=== PATIENT | female | born 1955 | race Caucasian/White ===

== ENCOUNTER 2021-05-03 11:39 | Inpatient (IN) | payer OTHER ==
[2021-05-03] MEDS ORDERED: ONDANSETRON 4 MG/2 ML VIAL IVPUSH ONE (12:15)
[2021-05-03] MEDS ORDERED: ACETAMINOPHEN 500 MG TABLET (FP) PO ONE (12:15)
[2021-05-03] MEDS ORDERED: SODIUM CHLORIDE 0.9% 500 ML INFUS.BAG IV ONE (12:15)
[2021-05-03] MEDS ORDERED: ACETAMINOPHEN 500 MG TABLET (FP) ONE ×2 (13:08→13:10)
[2021-05-03] MEDS ORDERED: ONDANSETRON 4 MG/2 ML VIAL ONE (13:08)
[2021-05-03 13:24] LABS: BASO % 0.5 % (0-2.0); EOS % 0.4 % (0-4.5); HEMATOCRIT 27.9 % (32.4-45.2); HEMOGLOBIN 9.3 GM/dL (10.7-15.3); LYMPH % 5.5 % (8-40); MCH 26.8 pg (25.7-33.7); MCHC 33.2 g/dl (32.0-36.0); MEAN CELL VOLUME 80.6 fl (80-96); MEAN PLT VOLUME 6.4 fl (7.5-11.1); MONO % 6.6 % (3.8-10.2); PLATELET COUNT 685 10^3/uL (134-434); RBC 3.46 M/mm3 (3.60-5.2); RDW 14.5 % (11.6-15.6); WHITE BLOOD COUNT 17.3 K/mm3 (4.0-10.0)
[2021-05-03 13:27] LABS: EPI CELLS >36 /uL (0-25.1); HYALINE CASTS 30 /uL (0-3.1); URINE APPEARANCE CLOUDY; URINE BACTERIA 1355 /uL (0-1359); URINE BILIRUBIN 1+ (NEGATIVE); URINE COLOR DK YELLOW; URINE GLUCOSE (UA) NEGATIVE (NEGATIVE); URINE KETONE TRACE (NEGATIVE); URINE LEUK ESTERASE TRACE (NEGATIVE); URINE NITRITE NEGATIVE (NEGATIVE); URINE PROTEIN 2+ (NEGATIVE); URINE RBC 30 /uL (0-23.9); URINE WBC 62 /uL (0-25.8)
[2021-05-03 13:51] LABS: ALBUMIN 2.2 g/dl (3.4-5.0); ALK PHOS 174 U/L (45-117); ANION GAP 7 MMOL/L (8-16); BILIRUBIN,TOTAL 0.4 mg/dL (0.2-1); BLOOD UREA NITROGEN 13.6 mg/dL (7-18); CALCIUM 9.4 mg/dL (8.5-10.1); CHLORIDE 97 mmol/L (98-107); CO2 24 mmol/L (21-32); CREATININE 1.1 mg/dL (0.55-1.3); GLUCOSE,RANDOM 211 mg/dL (74-106); LIPASE 100 U/L (73-393); SGOT/AST 22 U/L (15-37); SGPT/ALT 29 U/L (13-61); SODIUM 128 mmol/L (136-145); TOT PROT 7.5 g/dl (6.4-8.2)
[2021-05-03 16:11] LABS: EPI CELLS 12 /uL (0-25.1); HYALINE CASTS 10 /uL (0-3.1); PH,URINE 5.5 (5.0-8.0); URINE APPEARANCE CLEAR; URINE BACTERIA 9 /uL (0-1359); URINE BILIRUBIN 1+ (NEGATIVE); URINE COLOR DK YELLOW; URINE GLUCOSE (UA) NEGATIVE (NEGATIVE); URINE KETONE TRACE (NEGATIVE); URINE LEUK ESTERASE NEGATIVE (NEGATIVE); URINE NITRITE NEGATIVE (NEGATIVE); URINE PROTEIN 1+ (NEGATIVE); URINE RBC 24 /uL (0-23.9); URINE WBC 15 /uL (0-25.8)
[2021-05-03] MEDS ORDERED: PIPERACILLIN/TAZOB 4.5 GM 4.5 GM in DEXTROSE 5%-WATER 100 ML IVPB ONE (17:57)
[2021-05-03] MEDS ORDERED: PIPERACILLIN/TAZOB 4.5 GM 4.5 GM/100 ML BAG IVPB ONE (18:03)
[2021-05-03 21:59] LABS: BASO % 0.6 % (0-2.0); EOS % 0.9 % (0-4.5); HEMOGLOBIN 9.1 GM/dL (10.7-15.3); MCH 26.6 pg (25.7-33.7); MCHC 32.5 g/dl (32.0-36.0); MEAN CELL VOLUME 81.6 fl (80-96); MEAN PLT VOLUME 6.5 fl (7.5-11.1); NEUT % 81.5 % (42.8-82.8); PLATELET COUNT 709 10^3/uL (134-434); RBC 3.43 M/mm3 (3.60-5.2); RDW 14.5 % (11.6-15.6); WHITE BLOOD COUNT 18.6 K/mm3 (4.0-10.0)
[2021-05-03] MEDS ORDERED: LISINOPRIL 5 MG TABLET PO ONE (22:13)
[2021-05-03 22:23] LABS: BILIRUBIN,TOTAL 0.6 mg/dL (0.2-1); BLOOD UREA NITROGEN 13.2 mg/dL (7-18); CALCIUM 9.4 mg/dL (8.5-10.1); CREATININE 1.1 mg/dL (0.55-1.3); TOT PROT 7.3 g/dl (6.4-8.2)
[2021-05-03] MEDS: ACETAMINOPHEN 1000 MG/100 ML BAG IVPB PRN (22:27)
[2021-05-03] MEDS: POLYETHYLENE GLYCOL (HEALTHYLAX) 3350 17 GM PACKET PO SCH (23:42)
[2021-05-04] MEDS ORDERED: PIPERACILLIN/TAZOBACTAM 4.5 GM VIAL IVPB ONE ×2 (01:02→10:48)
[2021-05-04] MEDS ORDERED: DEXTROSE 5%-WATER 100 ML IVPB ONE ×2 (01:02→10:48)
[2021-05-04] MEDS: PIPERACILLIN/TAZOB 4.5 GM 4.5 GM in DEXTROSE 5%-WATER 100 ML IVPB SCH ×2 (01:54→10:52)
[2021-05-04] MEDS ORDERED: ONDANSETRON 4 MG/2 ML VIAL IVPUSH PRN (05:06)
[2021-05-04] MEDS: POLYETHYLENE GLYCOL (HEALTHYLAX) 3350 17 GM PACKET PO SCH ×3 (05:09→21:56)
[2021-05-04] MEDS: INSULIN SLIDING SCALE (NOVOLOG) 1 VIAL SQ SCH ×4 (06:15→21:54)
[2021-05-04 08:27] LABS: BASO % 0.6 % (0-2.0); EOS % 1.3 % (0-4.5); HEMATOCRIT 27.6 % (32.4-45.2); HEMOGLOBIN 9.1 GM/dL (10.7-15.3); LYMPH % 10.5 % (8-40); MCH 26.8 pg (25.7-33.7); MCHC 32.8 g/dl (32.0-36.0); MEAN CELL VOLUME 81.6 fl (80-96); MEAN PLT VOLUME 6.8 fl (7.5-11.1); NEUT % 78.6 % (42.8-82.8); PLATELET COUNT 721 10^3/uL (134-434); RBC 3.39 M/mm3 (3.60-5.2); RDW 14.4 % (11.6-15.6); RETICULOCYTES 1.31 % (0.5-1.5); WHITE BLOOD COUNT 16.6 K/mm3 (4.0-10.0)
[2021-05-04] MEDS ORDERED: PATIENT'S OWN MEDICATION (NON-FORMULARY) (Lisinopril [Zestril] 2.5 MG Tablet) PO SCH (10:00)
[2021-05-04] MEDS ORDERED: HYDROCHLOROTHIAZIDE 25 MG TABLET (FP) PO SCH (10:00)
[2021-05-04] MEDS ORDERED: amLODIPine BESYLATE 2.5 MG TABLET (FP) PO SCH (10:00)
[2021-05-04] MEDS ORDERED: LISINOPRIL 5 MG TABLET PO SCH (10:00)
[2021-05-04] MEDS: ENOXAPARIN NA (PORCINE) 40 MG/0.4 ML DISP.SYRIN SQ SCH ×2 (10:50→10:51)
[2021-05-04] MEDS: SODIUM ZIRCONIUM CYCLOSILICATE (LOKELMA) 5 GM PACKET PO SCH (10:51)
[2021-05-04 11:11] LABS: BILIRUBIN,TOTAL 0.5 mg/dL (0.2-1); BLOOD UREA NITROGEN 15.5 mg/dL (7-18); CALCIUM 9.2 mg/dL (8.5-10.1); CREATININE 1.3 mg/dL (0.55-1.3); MAGNESIUM 2.2 mg/dL (1.8-2.4); PHOSPHOROUS 3.4 mg/dL (2.5-4.9); TOT PROT 7.3 g/dl (6.4-8.2)
[2021-05-04] MEDS: CEFTRIAXONE 1 GM in DEXTROSE 5%-WATER - 50 ML IVPB SCH (15:55)
[2021-05-04] MEDS ORDERED: cefTRIAXone SODIUM 1 GM VIAL ONE (16:00)
[2021-05-04] MEDS ORDERED: DEXTROSE 5%-WATER - 50 ML IVPB ONE (16:00)
[2021-05-04] MEDS: PANTOPRAZOLE 40 MG TABLET PO SCH (16:05)
[2021-05-04 16:27] VITALS: BMI 27.2
[2021-05-04] MEDS: ACETAMINOPHEN 1000 MG/100 ML BAG IVPB PRN (17:59)
[2021-05-04] MEDS: ATORVASTATIN CA 40 MG TABLET (FP) PO SCH (21:56)
[2021-05-05] MEDS ORDERED: PIPERACILLIN/TAZOB 4.5 GM 4.5 GM in DEXTROSE 5%-WATER 100 ML IVPB SCH (02:00)
[2021-05-05] MEDS: POLYETHYLENE GLYCOL (HEALTHYLAX) 3350 17 GM PACKET PO SCH ×3 (06:54→22:50)
[2021-05-05] MEDS: INSULIN SLIDING SCALE (NOVOLOG) 1 VIAL SQ SCH ×4 (06:54→22:50)
[2021-05-05] MEDS: ACETAMINOPHEN 325 MG TABLET (FP) PO PRN ×2 (06:55→15:40)
[2021-05-05 07:07] LABS: CARCINOEMBRYONIC ANTIGEN 0.9 ng/mL (0.0-4.7)
[2021-05-05 08:26] LABS: BASO % 0.6 % (0-2.0); EOS % 0.9 % (0-4.5); HEMATOCRIT 25.7 % (32.4-45.2); HEMOGLOBIN 8.5 GM/dL (10.7-15.3); LYMPH % 9.4 % (8-40); MCH 26.7 pg (25.7-33.7); MCHC 32.9 g/dl (32.0-36.0); MEAN PLT VOLUME 6.5 fl (7.5-11.1); MONO % 8.7 % (3.8-10.2); NEUT % 80.4 % (42.8-82.8); PLATELET COUNT 750 10^3/uL (134-434); RBC 3.18 M/mm3 (3.60-5.2); RDW 14.1 % (11.6-15.6); WHITE BLOOD COUNT 15.3 K/mm3 (4.0-10.0)
[2021-05-05 08:28] LABS: INR 1.46 (0.83-1.09); PROTHROMBIN TIME (PATIENT) 16.4 SEC (9.7-13.0)
[2021-05-05 08:56] LABS: BILIRUBIN,TOTAL 0.5 mg/dL (0.2-1); BLOOD UREA NITROGEN 12.1 mg/dL (7-18); CALCIUM 9.1 mg/dL (8.5-10.1)
[2021-05-05 08:57] LABS: ALBUMIN 1.7 g/dl (3.4-5.0); MAGNESIUM 1.9 mg/dL (1.8-2.4); TOT PROT 6.6 g/dl (6.4-8.2)
[2021-05-05 08:59] LABS: CREATININE 1.1 mg/dL (0.55-1.3)
[2021-05-05] MEDS ORDERED: cefTRIAXone SODIUM 1 GM VIAL ONE (09:34)
[2021-05-05] MEDS ORDERED: DEXTROSE 5%-WATER - 50 ML IVPB ONE (09:35)
[2021-05-05] MEDS: PANTOPRAZOLE 40 MG TABLET PO SCH (10:09)
[2021-05-05] MEDS: SODIUM ZIRCONIUM CYCLOSILICATE (LOKELMA) 5 GM PACKET PO SCH (10:10)
[2021-05-05] MEDS: ENOXAPARIN NA (PORCINE) 40 MG/0.4 ML DISP.SYRIN SQ SCH (10:10)
[2021-05-05] MEDS: amLODIPine BESYLATE 10 MG TABLET (FP) PO SCH (10:10)
[2021-05-05] MEDS: CEFTRIAXONE 1 GM in DEXTROSE 5%-WATER - 50 ML IVPB SCH (10:10)
[2021-05-05] MEDS ORDERED: IBUPROFEN 600 MG TABLET (FP) PO ONE (17:36)
[2021-05-05] MEDS ORDERED: SODIUM CHLORIDE 1,000 ML IV SCH (17:45)
[2021-05-05] MEDS ORDERED: DEXTROSE 5%-WATER 100 ML IVPB ONE (17:55)
[2021-05-05] MEDS ORDERED: PIPERACILLIN/TAZOBACTAM 4.5 GM VIAL IVPB ONE (17:55)
[2021-05-05] MEDS: PIPERACILLIN/TAZOB 4.5 GM 4.5 GM in DEXTROSE 5%-WATER 100 ML IVPB SCH (17:57)
[2021-05-05] MEDS: ATORVASTATIN CA 40 MG TABLET (FP) PO SCH (22:49)
[2021-05-06] MEDS ORDERED: PIPERACILLIN/TAZOBACTAM 4.5 GM VIAL IVPB ONE ×2 (01:14→09:44)
[2021-05-06] MEDS ORDERED: DEXTROSE 5%-WATER 100 ML IVPB ONE ×2 (01:14→09:44)
[2021-05-06] MEDS: PIPERACILLIN/TAZOB 4.5 GM 4.5 GM in DEXTROSE 5%-WATER 100 ML IVPB SCH ×4 (01:29→13:56)
[2021-05-06] MEDS: POLYETHYLENE GLYCOL (HEALTHYLAX) 3350 17 GM PACKET PO SCH ×3 (06:12→21:58)
[2021-05-06] MEDS: INSULIN SLIDING SCALE (NOVOLOG) 1 VIAL SQ SCH ×4 (06:14→21:58)
[2021-05-06 08:24] LABS: INR 1.57 (0.83-1.09); PROTHROMBIN TIME (PATIENT) 18.5 SEC (9.7-13.0)
[2021-05-06 08:25] LABS: BASO % 0.6 % (0-2.0); EOS % 1.8 % (0-4.5); HEMATOCRIT 25.2 % (32.4-45.2); HEMOGLOBIN 8.2 GM/dL (10.7-15.3); MCH 26.6 pg (25.7-33.7); MCHC 32.5 g/dl (32.0-36.0); MEAN CELL VOLUME 81.7 fl (80-96); MEAN PLT VOLUME 6.6 fl (7.5-11.1); MONO % 9.1 % (3.8-10.2); NEUT % 80.5 % (42.8-82.8); PLATELET COUNT 693 10^3/uL (134-434); RBC 3.08 M/mm3 (3.60-5.2); RDW 14.5 % (11.6-15.6); WHITE BLOOD COUNT 14.9 K/mm3 (4.0-10.0)
[2021-05-06 08:43] LABS: BLOOD UREA NITROGEN 14.3 mg/dL (7-18); CALCIUM 8.5 mg/dL (8.5-10.1)
[2021-05-06 08:44] LABS: ALBUMIN 1.6 g/dl (3.4-5.0)
[2021-05-06 08:46] LABS: CREATININE 1.2 mg/dL (0.55-1.3); PHOSPHOROUS 2.4 mg/dL (2.5-4.9)
[2021-05-06 08:47] LABS: BILIRUBIN,TOTAL 0.5 mg/dL (0.2-1)
[2021-05-06 08:48] LABS: TOT PROT 6.2 g/dl (6.4-8.2)
[2021-05-06] MEDS: amLODIPine BESYLATE 10 MG TABLET (FP) PO SCH (10:17)
[2021-05-06] MEDS: SODIUM ZIRCONIUM CYCLOSILICATE (LOKELMA) 5 GM PACKET PO SCH (10:17)
[2021-05-06] MEDS: PANTOPRAZOLE 40 MG TABLET PO SCH (10:17)
[2021-05-06] MEDS: PIPERACILLIN/TAZOB 3.375 GM 3.375 GM in DEXTROSE 5%-WATER - 50 ML IVPB SCH ×2 (13:35→17:02)
[2021-05-06] MEDS ORDERED: PIPERACILLIN/TAZOBACTAM 3.375 GM VIAL IVPB ONE (15:21)
[2021-05-06] MEDS ORDERED: DEXTROSE 5%-WATER - 50 ML IVPB ONE (15:21)
[2021-05-06] MEDS: ACETAMINOPHEN 500 MG TABLET (FP) PO PRN (20:32)
[2021-05-06] MEDS: ATORVASTATIN CA 40 MG TABLET (FP) PO SCH (21:58)
[2021-05-07] MEDS ORDERED: DEXTROSE 5%-WATER - 50 ML IVPB ONE ×3 (00:47→16:42)
[2021-05-07] MEDS ORDERED: PIPERACILLIN/TAZOBACTAM 3.375 GM VIAL IVPB ONE ×3 (00:47→16:42)
[2021-05-07] MEDS: PIPERACILLIN/TAZOB 3.375 GM 3.375 GM in DEXTROSE 5%-WATER - 50 ML IVPB SCH ×3 (01:04→17:16)
[2021-05-07] MEDS: POLYETHYLENE GLYCOL (HEALTHYLAX) 3350 17 GM PACKET PO SCH ×3 (05:06→21:14)
[2021-05-07] MEDS: INSULIN SLIDING SCALE (NOVOLOG) 1 VIAL SQ SCH ×4 (06:13→21:15)
[2021-05-07 09:01] LABS: BASO % 0.3 % (0-2.0); EOS % 0.8 % (0-4.5); HEMATOCRIT 28.8 % (32.4-45.2); HEMOGLOBIN 9.5 GM/dL (10.7-15.3); LYMPH % 12.9 % (8-40); MCH 26.4 pg (25.7-33.7); MCHC 32.8 g/dl (32.0-36.0); MEAN CELL VOLUME 80.4 fl (80-96); MEAN PLT VOLUME 6.4 fl (7.5-11.1); MONO % 8.5 % (3.8-10.2); NEUT % 77.5 % (42.8-82.8); RBC 3.58 M/mm3 (3.60-5.2); RDW 14.9 % (11.6-15.6); WHITE BLOOD COUNT 19.1 K/mm3 (4.0-10.0)
[2021-05-07 09:03] LABS: INR 1.45 (0.83-1.09); PROTHROMBIN TIME (PATIENT) 16.3 SEC (9.7-13.0)
[2021-05-07 09:11] LABS: PLATELET COUNT 913 10^3/uL (134-434)
[2021-05-07 09:24] LABS: BLOOD UREA NITROGEN 11.8 mg/dL (7-18)
[2021-05-07 09:25] LABS: MAGNESIUM 2.2 mg/dL (1.8-2.4)
[2021-05-07 09:28] LABS: PHOSPHOROUS 2.3 mg/dL (2.5-4.9)
[2021-05-07 09:29] LABS: BILIRUBIN,TOTAL 0.5 mg/dL (0.2-1); TOT PROT 7.3 g/dl (6.4-8.2)
[2021-05-07] MEDS: SODIUM ZIRCONIUM CYCLOSILICATE (LOKELMA) 5 GM PACKET PO SCH (11:18)
[2021-05-07] MEDS: PANTOPRAZOLE 40 MG TABLET PO SCH (11:19)
[2021-05-07] MEDS: amLODIPine BESYLATE 10 MG TABLET (FP) PO SCH (11:19)
[2021-05-07] MEDS: MIDAZOLAM HCL 2 MG/2 ML SINGLE DOSE VIAL IVPUSH SCH ×2 (14:09→14:16)
[2021-05-07] MEDS ORDERED: SODIUM CHLORIDE 500 ML IV ONE (14:45)
[2021-05-07] MEDS ORDERED: SODIUM ZIRCONIUM CYCLOSILICATE (LOKELMA) 5 GM PACKET PO SCH (15:59)
[2021-05-07] MEDS: ACETAMINOPHEN 500 MG TABLET (FP) PO PRN (18:09)
[2021-05-07] MEDS: ATORVASTATIN CA 40 MG TABLET (FP) PO SCH (21:14)
[2021-05-07 22:30] LABS: EPI CELLS 34 /uL (0-25.1); HYALINE CASTS 2 /uL (0-3.1); URINE APPEARANCE CLOUDY; URINE BACTERIA 3 /uL (0-1359); URINE BILIRUBIN NEGATIVE (NEGATIVE); URINE COLOR YELLOW; URINE GLUCOSE (UA) NEGATIVE (NEGATIVE); URINE KETONE TRACE (NEGATIVE); URINE LEUK ESTERASE NEGATIVE (NEGATIVE); URINE NITRITE NEGATIVE (NEGATIVE); URINE PROTEIN 2+ (NEGATIVE); URINE RBC 12 /uL (0-23.9); URINE WBC 37 /uL (0-25.8)
[2021-05-08] MEDS ORDERED: PIPERACILLIN/TAZOBACTAM 3.375 GM VIAL IVPB ONE ×3 (01:10→16:32)
[2021-05-08] MEDS ORDERED: DEXTROSE 5%-WATER - 50 ML IVPB ONE ×3 (01:10→16:33)
[2021-05-08] MEDS: PIPERACILLIN/TAZOB 3.375 GM 3.375 GM in DEXTROSE 5%-WATER - 50 ML IVPB SCH ×3 (01:54→17:33)
[2021-05-08] MEDS: ACETAMINOPHEN 500 MG TABLET (FP) PO PRN ×3 (03:45→21:50)
[2021-05-08] MEDS: POLYETHYLENE GLYCOL (HEALTHYLAX) 3350 17 GM PACKET PO SCH ×3 (05:59→21:52)
[2021-05-08] MEDS: INSULIN SLIDING SCALE (NOVOLOG) 1 VIAL SQ SCH ×4 (06:08→21:52)
[2021-05-08 09:08] LABS: BASO % 0.7 % (0-2.0); EOS % 0.2 % (0-4.5); HEMATOCRIT 26.7 % (32.4-45.2); HEMOGLOBIN 8.8 GM/dL (10.7-15.3); LYMPH % 9.1 % (8-40); MCH 26.8 pg (25.7-33.7); MEAN CELL VOLUME 81.1 fl (80-96); MEAN PLT VOLUME 6.8 fl (7.5-11.1); MONO % 7.2 % (3.8-10.2); NEUT % 82.8 % (42.8-82.8); PLATELET COUNT 764 10^3/uL (134-434); RBC 3.29 M/mm3 (3.60-5.2); RDW 14.9 % (11.6-15.6); WHITE BLOOD COUNT 19.9 K/mm3 (4.0-10.0)
[2021-05-08] MEDS: ENOXAPARIN NA (PORCINE) 40 MG/0.4 ML DISP.SYRIN SQ SCH (09:40)
[2021-05-08] MEDS: PANTOPRAZOLE 40 MG TABLET PO SCH (09:41)
[2021-05-08] MEDS: amLODIPine BESYLATE 10 MG TABLET (FP) PO SCH (09:43)
[2021-05-08 09:50] LABS: ALBUMIN 1.8 g/dl (3.4-5.0)
[2021-05-08 09:52] LABS: CALCIUM 9.2 mg/dL (8.5-10.1)
[2021-05-08 09:53] LABS: BLOOD UREA NITROGEN 12.8 mg/dL (7-18); MAGNESIUM 2.2 mg/dL (1.8-2.4)
[2021-05-08 09:57] LABS: BILIRUBIN,TOTAL 0.4 mg/dL (0.2-1); TOT PROT 6.8 g/dl (6.4-8.2)
[2021-05-08] MEDS: NAPH,MB-DB/K PH,MBDB POWDER PACKET PO SCH ×2 (17:33→21:52)
[2021-05-08] MEDS ORDERED: INSULIN (NOVOLOG) ASPART 100 UNITS/ML 10ML VIAL ONE (21:12)
[2021-05-08] MEDS: ATORVASTATIN CA 40 MG TABLET (FP) PO SCH (21:51)
[2021-05-09] MEDS: POLYETHYLENE GLYCOL (HEALTHYLAX) 3350 17 GM PACKET PO SCH ×3 (05:18→21:55)
[2021-05-09] MEDS: NAPH,MB-DB/K PH,MBDB POWDER PACKET PO SCH (05:18)
[2021-05-09] MEDS: ACETAMINOPHEN 500 MG TABLET (FP) PO PRN ×3 (05:40→21:55)
[2021-05-09] MEDS: INSULIN SLIDING SCALE (NOVOLOG) 1 VIAL SQ SCH ×4 (07:03→21:56)
[2021-05-09 08:27] LABS: HEMATOCRIT 25.1 % (32.4-45.2); HEMOGLOBIN 8.3 GM/dL (10.7-15.3); MCH 26.6 pg (25.7-33.7); MEAN CELL VOLUME 80.6 fl (80-96); MEAN PLT VOLUME 6.6 fl (7.5-11.1); PLATELET COUNT 767 10^3/uL (134-434); RBC 3.11 M/mm3 (3.60-5.2); RDW 14.8 % (11.6-15.6); WHITE BLOOD COUNT 21.5 K/mm3 (4.0-10.0)
[2021-05-09 08:54] LABS: ALBUMIN 1.5 g/dl (3.4-5.0); BLOOD UREA NITROGEN 13.7 mg/dL (7-18)
[2021-05-09 08:57] LABS: CREATININE 0.9 mg/dL (0.55-1.3); PHOSPHOROUS 2.2 mg/dL (2.5-4.9)
[2021-05-09 08:58] LABS: BILIRUBIN,TOTAL 0.4 mg/dL (0.2-1); TOT PROT 6.4 g/dl (6.4-8.2)
[2021-05-09 09:31] LABS: ANISOCYTOSIS 1+; MACROCYTOSIS 0; PLATELET ESTIMATE INCREASED
[2021-05-09] MEDS ORDERED: DOCUSATE SODIUM 100 MG CAPSULE (FP) PO SCH (10:00)
[2021-05-09] MEDS: PANTOPRAZOLE 40 MG TABLET PO SCH (11:23)
[2021-05-09] MEDS: amLODIPine BESYLATE 10 MG TABLET (FP) PO SCH (11:23)
[2021-05-09] MEDS: ENOXAPARIN NA (PORCINE) 40 MG/0.4 ML DISP.SYRIN SQ SCH (11:23)
[2021-05-09] MEDS ORDERED: PT OWN MED DRAWER 7, Y5N ONE (11:56)
[2021-05-09] MEDS: LACTOBACILLUS ACIDOPHILUS 1 TABLET PO SCH (13:51)
[2021-05-09] MEDS: ATORVASTATIN CA 40 MG TABLET (FP) PO SCH (21:55)
[2021-05-10] MEDS: ACETAMINOPHEN 500 MG TABLET (FP) PO PRN ×2 (05:35→14:06)
[2021-05-10] MEDS: POLYETHYLENE GLYCOL (HEALTHYLAX) 3350 17 GM PACKET PO SCH ×3 (05:36→21:10)
[2021-05-10] MEDS: INSULIN SLIDING SCALE (NOVOLOG) 1 VIAL SQ SCH ×4 (06:40→21:11)
[2021-05-10 08:45] LABS: HEMATOCRIT 25.3 % (32.4-45.2); HEMOGLOBIN 8.4 GM/dL (10.7-15.3); MEAN CELL VOLUME 79.9 fl (80-96); RBC 3.16 M/mm3 (3.60-5.2); WHITE BLOOD COUNT 22.9 K/mm3 (4.0-10.0)
[2021-05-10 08:46] LABS: MCH 26.6 pg (25.7-33.7); MCHC 33.2 g/dl (32.0-36.0); MEAN PLT VOLUME 6.8 fl (7.5-11.1); PLATELET COUNT 773 10^3/uL (134-434); RDW 14.9 % (11.6-15.6)
[2021-05-10] MEDS: ENOXAPARIN NA (PORCINE) 40 MG/0.4 ML DISP.SYRIN SQ SCH (09:24)
[2021-05-10] MEDS: LACTOBACILLUS ACIDOPHILUS 1 TABLET PO SCH (09:24)
[2021-05-10] MEDS: PANTOPRAZOLE 40 MG TABLET PO SCH (09:24)
[2021-05-10] MEDS: amLODIPine BESYLATE 10 MG TABLET (FP) PO SCH (09:24)
[2021-05-10 09:33] LABS: CALCIUM 8.8 mg/dL (8.5-10.1)
[2021-05-10 09:34] LABS: ALBUMIN 1.5 g/dl (3.4-5.0); BLOOD UREA NITROGEN 17.1 mg/dL (7-18); MAGNESIUM 2.3 mg/dL (1.8-2.4)
[2021-05-10 09:36] LABS: PHOSPHOROUS 2.4 mg/dL (2.5-4.9)
[2021-05-10 09:38] LABS: BILIRUBIN,TOTAL 0.4 mg/dL (0.2-1); TOT PROT 6.6 g/dl (6.4-8.2)
[2021-05-10 09:51] LABS: ANISOCYTOSIS 0; MACROCYTOSIS 0; PLATELET ESTIMATE INCREASED
[2021-05-10] MEDS ORDERED: IBUPROFEN 800 MG/8 ML IJ IVPB PRN (13:09)
[2021-05-10] MEDS: ATORVASTATIN CA 40 MG TABLET (FP) PO SCH (21:11)
[2021-05-11] MEDS: POLYETHYLENE GLYCOL (HEALTHYLAX) 3350 17 GM PACKET PO SCH ×3 (06:27→21:33)
[2021-05-11] MEDS: ACETAMINOPHEN 500 MG TABLET (FP) PO PRN ×2 (06:27→13:39)
[2021-05-11] MEDS: INSULIN SLIDING SCALE (NOVOLOG) 1 VIAL SQ SCH ×4 (06:27→21:38)
[2021-05-11 08:57] LABS: HEMATOCRIT 23.6 % (32.4-45.2); HEMOGLOBIN 7.9 GM/dL (10.7-15.3); MCH 26.6 pg (25.7-33.7); MCHC 33.4 g/dl (32.0-36.0); MEAN CELL VOLUME 79.8 fl (80-96); MEAN PLT VOLUME 6.8 fl (7.5-11.1); PLATELET COUNT 762 10^3/uL (134-434); RBC 2.96 M/mm3 (3.60-5.2); WHITE BLOOD COUNT 22.6 K/mm3 (4.0-10.0)
[2021-05-11] MEDS: ENOXAPARIN NA (PORCINE) 40 MG/0.4 ML DISP.SYRIN SQ SCH (09:12)
[2021-05-11] MEDS: LACTOBACILLUS ACIDOPHILUS 1 TABLET PO SCH (09:13)
[2021-05-11] MEDS: PANTOPRAZOLE 40 MG TABLET PO SCH (09:13)
[2021-05-11] MEDS: amLODIPine BESYLATE 10 MG TABLET (FP) PO SCH (09:13)
[2021-05-11 09:25] LABS: ALBUMIN 1.3 g/dl (3.4-5.0); CALCIUM 8.3 mg/dL (8.5-10.1); MAGNESIUM 2.3 mg/dL (1.8-2.4)
[2021-05-11 09:28] LABS: CREATININE 0.9 mg/dL (0.55-1.3); PHOSPHOROUS 2.4 mg/dL (2.5-4.9)
[2021-05-11 09:29] LABS: TOT PROT 6.1 g/dl (6.4-8.2)
[2021-05-11 09:30] LABS: BILIRUBIN,TOTAL 0.4 mg/dL (0.2-1)
[2021-05-11 10:40] LABS: ANISOCYTOSIS 2+; MACROCYTOSIS 2+; PLATELET ESTIMATE INCREASED
[2021-05-11] MEDS ORDERED: INSULIN (NOVOLOG) ASPART 100 UNITS/ML 10ML VIAL ONE (21:02)
[2021-05-11] MEDS: ATORVASTATIN CA 40 MG TABLET (FP) PO SCH (21:34)
[2021-05-11] MEDS: NAPROXEN 250 MG TABLET PO SCH (21:37)
[2021-05-12] MEDS: POLYETHYLENE GLYCOL (HEALTHYLAX) 3350 17 GM PACKET PO SCH ×3 (05:55→21:15)
[2021-05-12] MEDS: INSULIN SLIDING SCALE (NOVOLOG) 1 VIAL SQ SCH ×4 (06:04→21:19)
[2021-05-12 08:24] LABS: BASO % 0.2 % (0-2.0); EOS % 1.4 % (0-4.5); HEMATOCRIT 24.3 % (32.4-45.2); HEMOGLOBIN 8.1 GM/dL (10.7-15.3); LYMPH % 6.3 % (8-40); MCH 26.4 pg (25.7-33.7); MCHC 33.2 g/dl (32.0-36.0); MEAN CELL VOLUME 79.5 fl (80-96); MEAN PLT VOLUME 6.7 fl (7.5-11.1); MONO % 8.6 % (3.8-10.2); NEUT % 83.5 % (42.8-82.8); PLATELET COUNT 744 10^3/uL (134-434); RBC 3.06 M/mm3 (3.60-5.2); RDW 15.1 % (11.6-15.6); WHITE BLOOD COUNT 20.5 K/mm3 (4.0-10.0)
[2021-05-12 09:04] LABS: BLOOD UREA NITROGEN 15.8 mg/dL (7-18)
[2021-05-12 09:07] LABS: CALCIUM 8.6 mg/dL (8.5-10.1)
[2021-05-12 09:09] LABS: ALBUMIN 1.3 g/dl (3.4-5.0); MAGNESIUM 2.4 mg/dL (1.8-2.4)
[2021-05-12 09:12] LABS: CREATININE 0.9 mg/dL (0.55-1.3); PHOSPHOROUS 2.3 mg/dL (2.5-4.9)
[2021-05-12 09:13] LABS: TOT PROT 6.1 g/dl (6.4-8.2)
[2021-05-12 09:14] LABS: BILIRUBIN,TOTAL 0.4 mg/dL (0.2-1)
[2021-05-12] MEDS: LACTOBACILLUS ACIDOPHILUS 1 TABLET PO SCH (09:16)
[2021-05-12] MEDS: PANTOPRAZOLE 40 MG TABLET PO SCH (09:17)
[2021-05-12] MEDS: NAPROXEN 250 MG TABLET PO SCH (09:18)
[2021-05-12] MEDS: amLODIPine BESYLATE 10 MG TABLET (FP) PO SCH (09:20)
[2021-05-12] MEDS: ENOXAPARIN NA (PORCINE) 40 MG/0.4 ML DISP.SYRIN SQ SCH (09:21)
[2021-05-12] MEDS ORDERED: SODIUM PHOSPHATE - 0 MM in SODIUM CHLORIDE 250 ML IVPB ONE (10:50)
[2021-05-12 11:39] LABS: ANISOCYTOSIS 1+; PLATELET ESTIMATE INCREASED
[2021-05-12] MEDS ORDERED: SODIUM PHOSPHATE - 30 MM in SODIUM CHLORIDE 500 ML IVPB ONE (12:30)
[2021-05-12] MEDS ORDERED: IBUPROFEN 800 MG/8 ML IJ IVPB PRN (15:18)
[2021-05-12] MEDS: ACETAMINOPHEN 500 MG TABLET (FP) PO PRN (21:18)
[2021-05-12] MEDS: ATORVASTATIN CA 40 MG TABLET (FP) PO SCH (21:19)
[2021-05-13] MEDS: INSULIN SLIDING SCALE (NOVOLOG) 1 VIAL SQ SCH ×4 (06:39→21:48)
[2021-05-13] MEDS: POLYETHYLENE GLYCOL (HEALTHYLAX) 3350 17 GM PACKET PO SCH ×3 (06:39→21:42)
[2021-05-13 08:02] LABS: HEMATOCRIT 24.9 % (32.4-45.2); HEMOGLOBIN 8.2 GM/dL (10.7-15.3); MCHC 32.9 g/dl (32.0-36.0); MEAN CELL VOLUME 79.3 fl (80-96); MEAN PLT VOLUME 6.7 fl (7.5-11.1); PLATELET COUNT 791 10^3/uL (134-434); RBC 3.14 M/mm3 (3.60-5.2); RDW 15.2 % (11.6-15.6); WHITE BLOOD COUNT 20.2 K/mm3 (4.0-10.0)
[2021-05-13 08:39] LABS: ALBUMIN 1.3 g/dl (3.4-5.0); BLOOD UREA NITROGEN 18.4 mg/dL (7-18); CALCIUM 8.4 mg/dL (8.5-10.1); MAGNESIUM 2.4 mg/dL (1.8-2.4)
[2021-05-13 08:42] LABS: PHOSPHOROUS 3.5 mg/dL (2.5-4.9)
[2021-05-13 08:44] LABS: BILIRUBIN,TOTAL 0.3 mg/dL (0.2-1); TOT PROT 6.1 g/dl (6.4-8.2)
[2021-05-13] MEDS: PANTOPRAZOLE 40 MG TABLET PO SCH (09:15)
[2021-05-13] MEDS: ENOXAPARIN NA (PORCINE) 40 MG/0.4 ML DISP.SYRIN SQ SCH (09:15)
[2021-05-13] MEDS: amLODIPine BESYLATE 10 MG TABLET (FP) PO SCH (09:16)
[2021-05-13] MEDS: LACTOBACILLUS ACIDOPHILUS 1 TABLET PO SCH (09:16)
[2021-05-13 10:45] LABS: PLATELET ESTIMATE INCREASED
[2021-05-13] MEDS: ATORVASTATIN CA 40 MG TABLET (FP) PO SCH (21:42)
[2021-05-14] MEDS: POLYETHYLENE GLYCOL (HEALTHYLAX) 3350 17 GM PACKET PO SCH ×3 (06:03→21:49)
[2021-05-14] MEDS: INSULIN SLIDING SCALE (NOVOLOG) 1 VIAL SQ SCH ×4 (06:07→21:50)
[2021-05-14] MEDS ORDERED: INSULIN (NOVOLOG) ASPART 100 UNITS/ML 10ML VIAL ONE (08:26)
[2021-05-14 09:01] LABS: HEMOGLOBIN 8.6 GM/dL (10.7-15.3); MCHC 32.9 g/dl (32.0-36.0); MEAN PLT VOLUME 6.8 fl (7.5-11.1); PLATELET COUNT 900 10^3/uL (134-434); RDW 15.5 % (11.6-15.6); WHITE BLOOD COUNT 20.1 K/mm3 (4.0-10.0)
[2021-05-14 09:16] LABS: ALBUMIN 1.5 g/dl (3.4-5.0); BLOOD UREA NITROGEN 17.1 mg/dL (7-18); MAGNESIUM 2.8 mg/dL (1.8-2.4)
[2021-05-14 09:19] LABS: CREATININE 1.1 mg/dL (0.55-1.3); PHOSPHOROUS 3.4 mg/dL (2.5-4.9)
[2021-05-14 09:20] LABS: TOT PROT 6.6 g/dl (6.4-8.2)
[2021-05-14 09:21] LABS: BILIRUBIN,TOTAL 0.6 mg/dL (0.2-1)
[2021-05-14 10:25] LABS: ANISOCYTOSIS 0; HELMET CELLS 0; HOWELL-JOLLY BODIES 0; MACROCYTOSIS 0; OVALOCYTE 0; PLATELET ESTIMATE INCREASED; ROULEAU 0; SICKELED CELLS 0; TARGET CELLS 0; TEAR DROP CELLS 0; TOXIC GRANULATION 0
[2021-05-14] MEDS: LACTOBACILLUS ACIDOPHILUS 1 TABLET PO SCH (11:10)
[2021-05-14] MEDS: ENOXAPARIN NA (PORCINE) 40 MG/0.4 ML DISP.SYRIN SQ SCH (11:11)
[2021-05-14] MEDS: amLODIPine BESYLATE 10 MG TABLET (FP) PO SCH (11:11)
[2021-05-14] MEDS: PANTOPRAZOLE 40 MG TABLET PO SCH (11:12)
[2021-05-14] MEDS ORDERED: MIDAZOLAM HCL 2 MG/2 ML SINGLE DOSE VIAL ONE (15:44)
[2021-05-14] MEDS ORDERED: PROPOFOL 20 ML ONE ×2 (15:44)
[2021-05-14] MEDS ORDERED: ceFAZolin SODIUM 1 GM VIAL IVPB ONE (15:45)
[2021-05-14] MEDS ORDERED: LIDOCAINE HCL 1%, 10 MG/ML (20ML VIAL) PNB ONE (15:57)
[2021-05-14] MEDS ORDERED: LIDOCAINE HCL 1%, 10 MG/ML (20ML VIAL) ONE (16:03)
[2021-05-14] MEDS ORDERED: IBUPROFEN 800 MG/8 ML IJ IVPB PRN (17:08)
[2021-05-14] MEDS ORDERED: ONDANSETRON 4 MG/2 ML VIAL IVPUSH PRN (17:08)
[2021-05-14] MEDS: ACETAMINOPHEN 500 MG TABLET (FP) PO PRN (20:44)
[2021-05-14] MEDS: ATORVASTATIN CA 40 MG TABLET (FP) PO SCH (21:50)
[2021-05-15] MEDS: POLYETHYLENE GLYCOL (HEALTHYLAX) 3350 17 GM PACKET PO SCH ×3 (06:02→22:05)
[2021-05-15] MEDS: INSULIN SLIDING SCALE (NOVOLOG) 1 VIAL SQ SCH ×4 (06:08→22:05)
[2021-05-15] MEDS: ACETAMINOPHEN 500 MG TABLET (FP) PO PRN ×2 (07:08→22:03)
[2021-05-15 08:49] LABS: HEMATOCRIT 23.6 % (32.4-45.2); HEMOGLOBIN 7.9 GM/dL (10.7-15.3); MCH 26.1 pg (25.7-33.7); MCHC 33.3 g/dl (32.0-36.0); MEAN CELL VOLUME 78.3 fl (80-96); MEAN PLT VOLUME 6.6 fl (7.5-11.1); PLATELET COUNT 885 10^3/uL (134-434); RBC 3.02 M/mm3 (3.60-5.2); RDW 15.5 % (11.6-15.6); WHITE BLOOD COUNT 24.2 K/mm3 (4.0-10.0)
[2021-05-15] MEDS: PANTOPRAZOLE 40 MG TABLET PO SCH (09:07)
[2021-05-15] MEDS: LACTOBACILLUS ACIDOPHILUS 1 TABLET PO SCH (09:07)
[2021-05-15] MEDS: amLODIPine BESYLATE 10 MG TABLET (FP) PO SCH (09:07)
[2021-05-15 09:09] LABS: BLOOD UREA NITROGEN 19.3 mg/dL (7-18)
[2021-05-15 09:10] LABS: CALCIUM 8.8 mg/dL (8.5-10.1); MAGNESIUM 2.6 mg/dL (1.8-2.4)
[2021-05-15 09:12] LABS: CREATININE 1.3 mg/dL (0.55-1.3); PHOSPHOROUS 3.6 mg/dL (2.5-4.9)
[2021-05-15] MEDS: SODIUM CHLORIDE 1,000 ML IV SCH ×2 (14:36→14:45)
[2021-05-15 14:41] LABS: EPI CELLS >36 /uL (0-25.1); HYALINE CASTS 54 /uL (0-3.1); URINE APPEARANCE CLOUDY; URINE BILIRUBIN 1+ (NEGATIVE); URINE COLOR DK YELLOW; URINE GLUCOSE (UA) NEGATIVE (NEGATIVE); URINE KETONE TRACE (NEGATIVE); URINE LEUK ESTERASE NEGATIVE (NEGATIVE); URINE NITRITE NEGATIVE (NEGATIVE); URINE PROTEIN 1+ (NEGATIVE); URINE RBC 18 /uL (0-23.9)
[2021-05-15 15:02] LABS: URINE WBC FEW /uL (0-25.8)
[2021-05-15 15:03] LABS: URINE BACTERIA MODERATE /uL (0-1359)
[2021-05-15] MEDS: ATORVASTATIN CA 40 MG TABLET (FP) PO SCH (22:05)
[2021-05-16] MEDS: POLYETHYLENE GLYCOL (HEALTHYLAX) 3350 17 GM PACKET PO SCH ×2 (06:02→15:20)
[2021-05-16] MEDS: INSULIN SLIDING SCALE (NOVOLOG) 1 VIAL SQ SCH ×3 (06:04→16:30)
[2021-05-16] MEDS: SODIUM CHLORIDE 1,000 ML IV SCH (06:05)
[2021-05-16 08:27] LABS: HEMATOCRIT 24.1 % (32.4-45.2); HEMOGLOBIN 7.9 GM/dL (10.7-15.3); MCH 25.9 pg (25.7-33.7); MCHC 32.9 g/dl (32.0-36.0); MEAN CELL VOLUME 78.9 fl (80-96); MEAN PLT VOLUME 6.6 fl (7.5-11.1); PLATELET COUNT 897 10^3/uL (134-434); RBC 3.06 M/mm3 (3.60-5.2); RDW 15.7 % (11.6-15.6); WHITE BLOOD COUNT 23.6 K/mm3 (4.0-10.0)
[2021-05-16 09:14] LABS: BLOOD UREA NITROGEN 19.3 mg/dL (7-18); CALCIUM 8.9 mg/dL (8.5-10.1)
[2021-05-16 09:15] LABS: ALBUMIN 1.2 g/dl (3.4-5.0); MAGNESIUM 2.6 mg/dL (1.8-2.4)
[2021-05-16 09:17] LABS: CREATININE 1.2 mg/dL (0.55-1.3); PHOSPHOROUS 3.6 mg/dL (2.5-4.9)
[2021-05-16 09:19] LABS: BILIRUBIN,TOTAL 0.6 mg/dL (0.2-1); TOT PROT 6.2 g/dl (6.4-8.2)
[2021-05-16] MEDS ORDERED: SODIUM CHLORIDE 250 ML IV ONE (10:00)
[2021-05-16] MEDS ORDERED: LISINOPRIL 5 MG TABLET PO SCH (10:00)
[2021-05-16] MEDS ORDERED: FAMOTIDINE 20 MG/50 ML IVPB 20 MG/50 ML MG IVPB ONE (10:30)
[2021-05-16] MEDS ORDERED: DEXAMETHASONE SODIUM PHOSPHATE 12 MG, DIPHENHYDRAMINE 25 MG in SODIUM CHLORIDE 100 ML IVPB ONE (10:30)
[2021-05-16] MEDS ORDERED: PALONOSETRON HCL 0.25 MG/5 ML VIAL IVPUSH ONE (10:30)
[2021-05-16] MEDS: PANTOPRAZOLE 40 MG TABLET PO SCH (10:47)
[2021-05-16] MEDS: LACTOBACILLUS ACIDOPHILUS 1 TABLET PO SCH (10:48)
[2021-05-16] MEDS: amLODIPine BESYLATE 10 MG TABLET (FP) PO SCH (10:48)
[2021-05-16] MEDS ORDERED: PACLITAXEL 150 MG in SODIUM CHLORIDE 250 ML IVPB ONE (11:00)
[2021-05-16] MEDS ORDERED: CARBOPLATIN IVPB ONE (12:00)
[2021-05-16] MEDS ORDERED: SODIUM CHLORIDE IVPB ONE (12:00)
[2021-05-16] MEDS ORDERED: PT OWN MED DRAWER 7, Y5N ONE (12:38)
[2021-05-16] MEDS: ACETAMINOPHEN 500 MG TABLET (FP) PO PRN (16:23)
[2021-05-16 21:13] VITALS: BP 130/62; PULSE 93; TEMP 98.8
== END 2021-05-16 21:38 | disposition home or self-care (01) | DRG 264 ==
LOC: JER 11:39 → JERBED 17:57 → J7W 21:49
PROVIDERS: ADMIT Internal Medicine; ATTEND Internal Medicine
PROC: 0FB04ZX Excision of Liver, Percutaneous Endoscopic Approach, Diagnostic (ICD-10-PCS; 2021-05-07)
PROC: 02HV33Z Insertion of Infusion Device into Superior Vena Cava, Percutaneous Approach (ICD-10-PCS; 2021-05-14)
PROC: 0JH63XZ Insertion of Tunneled Vascular Access Device into Chest Subcutaneous Tissue and Fascia, Percutaneous Approach (ICD-10-PCS; principal; 2021-05-14 17:30)
PROC: 30233N1 Transfusion of Nonautologous Red Blood Cells into Peripheral Vein, Percutaneous Approach (ICD-10-PCS; 2021-05-16)
DX: C78.7 Secondary malignant neoplasm of liver and intrahepatic bile duct (principal); E46 Unspecified protein-calorie malnutrition; R18.8 Other ascites; E11.65 Type 2 diabetes mellitus with hyperglycemia; E87.1 Hypo-osmolality and hyponatremia; E87.8 Other disorders of electrolyte and fluid balance, not elsewhere classified; C18.9 Malignant neoplasm of colon, unspecified; C56.9 Malignant neoplasm of unspecified ovary; E83.52 Hypercalcemia; E87.5 Hyperkalemia; E88.09 Other disorders of plasma-protein metabolism, not elsewhere classified; R16.0 Hepatomegaly, not elsewhere classified; C64.9 Malignant neoplasm of unspecified kidney, except renal pelvis; C76.3 Malignant neoplasm of pelvis; D47.3 Essential (hemorrhagic) thrombocythemia; D64.9 Anemia, unspecified; D72.823 Leukemoid reaction; D72.829 Elevated white blood cell count, unspecified; E78.5 Hyperlipidemia, unspecified; I10 Essential (primary) hypertension; K76.9 Liver disease, unspecified; N28.89 Other specified disorders of kidney and ureter; R63.0 Anorexia; R68.81 Early satiety; Z68.27 Body mass index [BMI] 27.0-27.9, adult
CPT/HCPCS: 36415; 36430; 71045-TC-FY; 71250-TC; 74177-TC; 76000-TC-FY; 76705-TC; 76830-TC; 76856-TC; 76942-TC; 80048; 80053; 81003; 82105; 82272; 82378; 82533; 82570; 82728; 82962; 83540; 83550; 83605; 83615; 83690; 83735; 84100; 84300; 84443; 84484; 84702; 85025; 85027; 85045; 85610; 85730; 86301; 86304; 86704; 86850; 86900; 86901; 86922; 87040; 87086; 87340; 87899; 93005; 93010; 93306-TC; 94760; 97116-GP; 97161-GP; 99285-25; C9803; J0131; J1644; P9058; Q9967; U0003; U0005

== ENCOUNTER 2021-05-18 10:23 | Day surgery (SDC) | payer OTHER ==
[~2021-05-18 10:23] MED LIST: DEXAMETHASONE SODIUM PHOSPHATE 12 MG, DIPHENHYDRAMINE 25 MG in SODIUM CHLORIDE 100 ML IVPB ONE; FAMOTIDINE 20 MG/50 ML IVPB 20 MG/50 ML MG IVPB ONE; PACLITAXEL 150 MG in SODIUM CHLORIDE 250 ML IVPB ONE; PALONOSETRON HCL 0.25 MG/5 ML VIAL IVPUSH ONE; SODIUM CHLORIDE 250 ML IV ONE
[2021-05-18] MEDS ORDERED: CARBOPLATIN IVPB ONE (11:00)
[2021-05-18] MEDS ORDERED: SODIUM CHLORIDE IVPB ONE (11:00)
[2021-05-18 14:06] LABS: HEMATOCRIT 27.8 % (32.4-45.2); HEMOGLOBIN 9.1 GM/dL (10.7-15.3); MCH 26.1 pg (25.7-33.7); MCHC 32.7 g/dl (32.0-36.0); MEAN CELL VOLUME 79.7 fl (80-96); MEAN PLT VOLUME 6.7 fl (7.5-11.1); PLATELET COUNT 934 10^3/uL (134-434); RBC 3.49 M/mm3 (3.60-5.2); WHITE BLOOD COUNT 28.8 K/mm3 (4.0-10.0)
[2021-05-18 14:27] LABS: CALCIUM 9.4 mg/dL (8.5-10.1)
[2021-05-18 14:28] LABS: ALBUMIN 1.4 g/dl (3.4-5.0); BLOOD UREA NITROGEN 26.1 mg/dL (7-18)
[2021-05-18 14:31] LABS: CREATININE 1.3 mg/dL (0.55-1.3)
[2021-05-18 14:32] LABS: BILIRUBIN,TOTAL 0.7 mg/dL (0.2-1); TOT PROT 6.8 g/dl (6.4-8.2)
[2021-05-18 15:09] LABS: ANISOCYTOSIS 0; HELMET CELLS 0; HOWELL-JOLLY BODIES 0; MACROCYTOSIS 0; OVALOCYTE 0; PLATELET ESTIMATE INCREASED; ROULEAU 0; SICKELED CELLS 0; TARGET CELLS 0; TEAR DROP CELLS 0; TOXIC GRANULATION 0
[2021-05-18] MEDS ORDERED: PORTA CATH FLUSH 10 ML IVPUSH ONE ×2 (16:59→17:15)
[2021-05-18 17:28] VITALS: BP 149/71; PULSE 94; TEMP 99
== END 2021-05-18 18:10 | disposition home or self-care (01) ==
LOC: JONCCHEMO 10:23
PROVIDERS: ATTEND Internal Medicine Hematology & Oncology
DX: Z51.11 Encounter for antineoplastic chemotherapy (principal); C56.9 Malignant neoplasm of unspecified ovary; C78.7 Secondary malignant neoplasm of liver and intrahepatic bile duct; C79.00 Secondary malignant neoplasm of unspecified kidney and renal pelvis; C79.89 Secondary malignant neoplasm of other specified sites
CPT/HCPCS: 36415; 80053; 85025; 96367; 96375; 96413; 96415; 96417; J2469

== ENCOUNTER 2021-05-25 07:53 | Day surgery (SDC) | payer OTHER ==
[~2021-05-25 07:53] MED LIST changes: -DEXAMETHASONE SODIUM PHOSPHATE 12 MG, DIPHENHYDRAMINE 25 MG in SODIUM CHLORIDE 100 ML IVPB ONE; -PACLITAXEL 150 MG in SODIUM CHLORIDE 250 ML IVPB ONE; -PALONOSETRON HCL 0.25 MG/5 ML VIAL IVPUSH ONE; -SODIUM CHLORIDE 250 ML IV ONE
[2021-05-25] MEDS ORDERED: SODIUM CHLORIDE 250 ML IV ONE (10:00)
[2021-05-25] MEDS ORDERED: PALONOSETRON HCL 0.25 MG/5 ML VIAL IVPUSH ONE (10:30)
[2021-05-25] MEDS ORDERED: DEXAMETHASONE SODIUM PHOSPHATE 12 MG, DIPHENHYDRAMINE 25 MG in SODIUM CHLORIDE 100 ML IVPB ONE (10:30)
[2021-05-25] MEDS ORDERED: FAMOTIDINE 20 MG/50 ML IVPB 20 MG/50 ML MG IVPB ONE (10:30)
[2021-05-25] MEDS ORDERED: PACLITAXEL 150 MG in SODIUM CHLORIDE 250 ML IVPB ONE (11:00)
[2021-05-25] MEDS ORDERED: CARBOPLATIN IVPB ONE (12:00)
[2021-05-25] MEDS ORDERED: SODIUM CHLORIDE IVPB ONE (12:00)
[2021-05-25 13:41] LABS: BASO % 0.4 % (0-2.0); EOS % 1.5 % (0-4.5); HEMATOCRIT 26.8 % (32.4-45.2); LYMPH % 16.7 % (8-40); MCH 26.6 pg (25.7-33.7); MCHC 33.8 g/dl (32.0-36.0); MEAN CELL VOLUME 78.8 fl (80-96); MEAN PLT VOLUME 7.2 fl (7.5-11.1); MONO % 11.1 % (3.8-10.2); NEUT % 70.3 % (42.8-82.8); PLATELET COUNT 645 10^3/uL (134-434); RBC 3.39 M/mm3 (3.60-5.2); RDW 17.1 % (11.6-15.6); WHITE BLOOD COUNT 5.7 K/mm3 (4.0-10.0)
[2021-05-25 14:15] LABS: ALBUMIN 1.6 g/dl (3.4-5.0); CALCIUM 9.1 mg/dL (8.5-10.1)
[2021-05-25 14:16] LABS: BLOOD UREA NITROGEN 12.1 mg/dL (7-18)
[2021-05-25 14:18] LABS: CREATININE 0.9 mg/dL (0.55-1.3)
[2021-05-25 14:20] LABS: BILIRUBIN,TOTAL 0.8 mg/dL (0.2-1); TOT PROT 6.8 g/dl (6.4-8.2)
[2021-05-25] MEDS ORDERED: SODIUM CHLORIDE 750 ML IV STA (14:28)
[2021-05-25 17:20] VITALS: TEMP 98.3
[2021-05-25 18:14] LABS: URIC ACID 2.8 mg/dL (2.6-7.2)
[2021-05-25 18:58] VITALS: BP 136/76; PULSE 96
[2021-05-25 19:12] LABS: CHLORIDE 105 mmol/L (98-107); SODIUM 135 mmol/L (136-145)
[2021-05-25 19:15] LABS: CALCIUM 8.7 mg/dL (8.5-10.1); CO2 24 mmol/L (21-32); GLUCOSE,RANDOM 148 mg/dL (74-106)
[2021-05-25 19:18] LABS: CREATININE 0.8 mg/dL (0.55-1.3)
[2021-05-25 20:10] LABS: LDH 378 U/L (84-246)
[2021-05-25 20:12] LABS: ANION GAP 6 MMOL/L (8-16)
== END 2021-05-25 19:01 | disposition home or self-care (01) ==
LOC: JONCCHEMO 07:53
PROVIDERS: ATTEND Internal Medicine Hematology & Oncology
DX: Z51.11 Encounter for antineoplastic chemotherapy (principal); C56.9 Malignant neoplasm of unspecified ovary; C78.7 Secondary malignant neoplasm of liver and intrahepatic bile duct; C79.00 Secondary malignant neoplasm of unspecified kidney and renal pelvis; C79.89 Secondary malignant neoplasm of other specified sites
CPT/HCPCS: 36415; 80048; 80053; 83615; 83735; 84550; 85025; 96361; 96367; 96375; 96413; 96417; J2469

== ENCOUNTER 2021-05-31 08:50 | Day surgery (SDC) | payer OTHER ==
[2021-05-31] MEDS ORDERED: SODIUM CHLORIDE 250 ML IV ONE (09:00)
[2021-05-31] MEDS ORDERED: DEXAMETHASONE SODIUM PHOSPHATE 12 MG, DIPHENHYDRAMINE 25 MG in SODIUM CHLORIDE 100 ML IVPB ONE (10:00)
[2021-05-31] MEDS ORDERED: FAMOTIDINE 20 MG/50 ML IVPB 20 MG/50 ML MG IVPB ONE (10:00)
[2021-05-31] MEDS ORDERED: PALONOSETRON HCL 0.25 MG/5 ML VIAL IVPUSH ONE (10:00)
[2021-05-31] MEDS ORDERED: PACLITAXEL 144 MG in SODIUM CHLORIDE 250 ML IVPB ONE (10:30)
[2021-05-31] MEDS ORDERED: SODIUM CHLORIDE IVPB ONE (11:00)
[2021-05-31] MEDS ORDERED: CARBOPLATIN IVPB ONE (11:00)
[2021-05-31 11:08] LABS: BASO % 1.3 % (0-2.0); EOS % 3.1 % (0-4.5); HEMATOCRIT 29.7 % (32.4-45.2); HEMOGLOBIN 9.7 GM/dL (10.7-15.3); LYMPH % 20.6 % (8-40); MCH 25.9 pg (25.7-33.7); MCHC 32.5 g/dl (32.0-36.0); MEAN CELL VOLUME 79.7 fl (80-96); MEAN PLT VOLUME 7.1 fl (7.5-11.1); MONO % 7.9 % (3.8-10.2); NEUT % 67.1 % (42.8-82.8); PLATELET COUNT 748 10^3/uL (134-434); RBC 3.72 M/mm3 (3.60-5.2); RDW 17.8 % (11.6-15.6); WHITE BLOOD COUNT 4.7 K/mm3 (4.0-10.0)
[2021-05-31 11:29] LABS: CALCIUM 9.6 mg/dL (8.5-10.1)
[2021-05-31 11:30] LABS: BLOOD UREA NITROGEN 12.8 mg/dL (7-18)
[2021-05-31 11:33] LABS: CREATININE 0.9 mg/dL (0.55-1.3)
[2021-05-31 11:34] LABS: BILIRUBIN,TOTAL 0.6 mg/dL (0.2-1)
[2021-05-31 11:35] LABS: TOT PROT 7.9 g/dl (6.4-8.2)
[2021-05-31 11:40] LABS: ALBUMIN 2.4 g/dl (3.4-5.0)
[2021-05-31 16:47] VITALS: TEMP 98.3
[2021-05-31 16:49] VITALS: BP 149/81; PULSE 84
[2021-06-07] MEDS ORDERED: SODIUM CHLORIDE IVPB ONE (11:30)
[2021-06-07] MEDS ORDERED: CARBOPLATIN IVPB ONE (11:30)
== END 2021-05-31 16:15 | disposition home or self-care (01) ==
LOC: JONCCHEMO 08:50
PROVIDERS: ATTEND Internal Medicine Hematology & Oncology
PROC: 3E04305 Introduction of Other Antineoplastic into Central Vein, Percutaneous Approach (ICD-10-PCS; principal; 2021-05-31)
PROC: 3E043GC Introduction of Other Therapeutic Substance into Central Vein, Percutaneous Approach (ICD-10-PCS; 2021-05-31)
PROC: 3E0437Z Introduction of Electrolytic and Water Balance Substance into Central Vein, Percutaneous Approach (ICD-10-PCS; 2021-05-31)
DX: Z51.11 Encounter for antineoplastic chemotherapy (principal); C56.9 Malignant neoplasm of unspecified ovary
CPT/HCPCS: 36415; 80053; 83735; 85025; 96367; 96375; 96413; 96417; J2469

== ENCOUNTER → 2021-06-07 | Day surgery (SDC) | payer OTHER ==
[~2021-06-07] MED LIST changes: +CARBOPLATIN IVPB ONE; +DEXAMETHASONE SODIUM PHOSPHATE 12 MG, DIPHENHYDRAMINE 25 MG in SODIUM CHLORIDE 100 ML IVPB ONE; +PACLITAXEL 144 MG in SODIUM CHLORIDE 250 ML IVPB ONE; +PALONOSETRON HCL 0.25 MG/5 ML VIAL IVPUSH ONE; +SODIUM CHLORIDE 250 ML IV ONE; +SODIUM CHLORIDE 750 ML IV STA; +SODIUM CHLORIDE IVPB ONE
[2021-06-07 12:28] LABS: BASO % 0.5 % (0-2.0); EOS % 1.2 % (0-4.5); LYMPH % 12.5 % (8-40); MCHC 33.2 g/dl (32.0-36.0); MEAN CELL VOLUME 78.3 fl (80-96); MEAN PLT VOLUME 6.9 fl (7.5-11.1); MONO % 10.2 % (3.8-10.2); NEUT % 75.6 % (42.8-82.8); PLATELET COUNT 581 10^3/uL (134-434); RBC 3.45 M/mm3 (3.60-5.2); RDW 18.1 % (11.6-15.6); WHITE BLOOD COUNT 10.1 K/mm3 (4.0-10.0)
[2021-06-07 13:00] LABS: CALCIUM 9.7 mg/dL (8.5-10.1)
[2021-06-07 13:01] LABS: ALBUMIN 2.6 g/dl (3.4-5.0); BLOOD UREA NITROGEN 14.4 mg/dL (7-18)
[2021-06-07 13:02] LABS: ANISOCYTOSIS 1+; MACROCYTOSIS 1+; PLATELET ESTIMATE INCREASED
[2021-06-07 13:03] LABS: CREATININE 0.8 mg/dL (0.55-1.3)
[2021-06-07 13:05] LABS: BILIRUBIN,TOTAL 1.1 mg/dL (0.2-1); TOT PROT 7.6 g/dl (6.4-8.2)
[2021-06-07 17:38] VITALS: BP 134/74; PULSE 86; TEMP 98.5
== END | disposition home or self-care (01) ==
LOC: JONCCHEMO 08:24
PROVIDERS: ATTEND Internal Medicine Hematology & Oncology
PROC: 3E04305 Introduction of Other Antineoplastic into Central Vein, Percutaneous Approach (ICD-10-PCS; principal; 2021-06-07)
PROC: 3E0437Z Introduction of Electrolytic and Water Balance Substance into Central Vein, Percutaneous Approach (ICD-10-PCS; 2021-06-07)
DX: Z51.11 Encounter for antineoplastic chemotherapy (principal); C56.9 Malignant neoplasm of unspecified ovary
CPT/HCPCS: 36415; 80053; 85025; 96361; 96367; 96375; 96413; 96417; J2469

== ENCOUNTER 2021-06-11 04:20 | Day surgery (SDC) | payer OTHER ==
[2021-06-07 16:08] VITALS: BMI 25.0
[2021-06-11 09:22] LABS: BASO % 0.5 % (0-2.0); EOS % 0.5 % (0-4.5); HEMOGLOBIN 8.8 GM/dL (10.7-15.3); LYMPH % 6.3 % (8-40); MCH 24.9 pg (25.7-33.7); MCHC 31.2 g/dl (32.0-36.0); MEAN CELL VOLUME 79.6 fl (80-96); MEAN PLT VOLUME 7.3 fl (7.5-11.1); MONO % 1.7 % (3.8-10.2); PLATELET COUNT 541 10^3/uL (134-434); RBC 3.52 M/mm3 (3.60-5.2); RDW 18.5 % (11.6-15.6)
[2021-06-11 09:31] LABS: INR 1.25 (0.83-1.09); PROTHROMBIN TIME (PATIENT) 14.7 SEC (9.7-13.0)
[2021-06-11 09:52] LABS: WHITE BLOOD COUNT 34.5 K/mm3 (4.0-10.0)
[2021-06-11 10:37] LABS: ANISOCYTOSIS 1+; MACROCYTOSIS 0; PLATELET ESTIMATE INCREASED; ROULEAU 1+; TARGET CELLS 1+
[2021-06-11] MEDS ORDERED: ONDANSETRON 4 MG/2 ML VIAL ONE (13:14)
[2021-06-11] MEDS ORDERED: ACETAMINOPHEN INJECTION 100 ML IVPB ONE (13:14)
[2021-06-11] MEDS ORDERED: ONDANSETRON 4 MG/2 ML VIAL IVPUSH ONE (13:16)
[2021-06-11] MEDS ORDERED: ACETAMINOPHEN 1000 MG/100 ML BAG IVPB ONE (13:16)
[2021-06-11 17:04] VITALS: BP 118/60; PULSE 78; TEMP 97.9
== END 2021-06-11 16:45 | disposition home or self-care (01) ==
LOC: JRADIR 04:20
PROVIDERS: ATTEND Internal Medicine Hematology & Oncology
PROC: 0FB03ZX Excision of Liver, Percutaneous Approach, Diagnostic (ICD-10-PCS; principal; 2021-06-11)
DX: C22.7 Other specified carcinomas of liver (principal)
CPT/HCPCS: 36415; 47000; 76942-TC; 85025; 85610; 85730; 87899; 88305-TC; J0131

== ENCOUNTER 2021-06-22 07:20 | Day surgery (SDC) | payer OTHER ==
[~2021-06-22 07:20] MED LIST changes: -CARBOPLATIN IVPB ONE; -DEXAMETHASONE SODIUM PHOSPHATE 12 MG, DIPHENHYDRAMINE 25 MG in SODIUM CHLORIDE 100 ML IVPB ONE; -PACLITAXEL 144 MG in SODIUM CHLORIDE 250 ML IVPB ONE; -PALONOSETRON HCL 0.25 MG/5 ML VIAL IVPUSH ONE; -SODIUM CHLORIDE 250 ML IV ONE; -SODIUM CHLORIDE 750 ML IV STA; -SODIUM CHLORIDE IVPB ONE
[2021-06-22] MEDS ORDERED: SODIUM CHLORIDE 250 ML IV ONE (10:00)
[2021-06-22] MEDS ORDERED: DEXAMETHASONE SODIUM PHOSPHATE 12 MG, DIPHENHYDRAMINE 25 MG in SODIUM CHLORIDE 100 ML IVPB ONE (10:30)
[2021-06-22] MEDS ORDERED: PALONOSETRON HCL 0.25 MG/5 ML VIAL IVPUSH ONE (10:30)
[2021-06-22] MEDS ORDERED: FAMOTIDINE 20 MG/50 ML IVPB 20 MG/50 ML MG IVPB ONE (10:30)
[2021-06-22] MEDS ORDERED: PACLITAXEL 144 MG in SODIUM CHLORIDE 250 ML IVPB ONE (11:00)
[2021-06-22] MEDS ORDERED: SODIUM CHLORIDE 250 ML IV STA (11:57)
[2021-06-22] MEDS ORDERED: PACLITAXEL 108 MG in SODIUM CHLORIDE 250 ML IVPB ONE (12:00)
[2021-06-22] MEDS ORDERED: SODIUM CHLORIDE IVPB ONE ×2 (12:00→13:00)
[2021-06-22] MEDS ORDERED: CARBOPLATIN IVPB ONE ×2 (12:00→13:00)
[2021-06-22 12:35] LABS: BASO % 0.7 % (0-2.0); EOS % 0.6 % (0-4.5); HEMATOCRIT 23.7 % (32.4-45.2); HEMOGLOBIN 7.7 GM/dL (10.7-15.3); LYMPH % 9.5 % (8-40); MCHC 32.3 g/dl (32.0-36.0); MEAN CELL VOLUME 77.5 fl (80-96); MEAN PLT VOLUME 7.2 fl (7.5-11.1); MONO % 14.1 % (3.8-10.2); NEUT % 75.1 % (42.8-82.8); PLATELET COUNT 441 10^3/uL (134-434); RBC 3.06 M/mm3 (3.60-5.2); RDW 19.3 % (11.6-15.6); WHITE BLOOD COUNT 15.1 K/mm3 (4.0-10.0)
[2021-06-22 13:15] LABS: CALCIUM 9.3 mg/dL (8.5-10.1)
[2021-06-22 13:16] LABS: ALBUMIN 2.3 g/dl (3.4-5.0); BLOOD UREA NITROGEN 13.4 mg/dL (7-18)
[2021-06-22 13:20] LABS: BILIRUBIN,TOTAL 0.8 mg/dL (0.2-1); TOT PROT 7.5 g/dl (6.4-8.2)
[2021-06-22 16:46] VITALS: TEMP 98.5
[2021-06-22 17:40] VITALS: BP 130/69; PULSE 99
== END 2021-06-22 18:33 | disposition home or self-care (01) ==
LOC: JONCCHEMO 07:20
PROVIDERS: ATTEND Internal Medicine Hematology & Oncology
PROC: 3E04305 Introduction of Other Antineoplastic into Central Vein, Percutaneous Approach (ICD-10-PCS; principal; 2021-06-22)
PROC: 3E043GC Introduction of Other Therapeutic Substance into Central Vein, Percutaneous Approach (ICD-10-PCS; 2021-06-22)
PROC: 3E0437Z Introduction of Electrolytic and Water Balance Substance into Central Vein, Percutaneous Approach (ICD-10-PCS; 2021-06-22)
DX: Z51.11 Encounter for antineoplastic chemotherapy (principal); C7A.1 Malignant poorly differentiated neuroendocrine tumors; E11.9 Type 2 diabetes mellitus without complications; E78.00 Pure hypercholesterolemia, unspecified; I10 Essential (primary) hypertension
CPT/HCPCS: 36415; 80053; 85025; 96361; 96367; 96375; 96413; 96417; J2469

== ENCOUNTER 2021-06-26 07:19 | Day surgery (SDC) | payer OTHER ==
[2021-06-26 08:49] LABS: HEMATOCRIT 22.2 % (32.4-45.2); MCH 23.9 pg (25.7-33.7); MCHC 30.9 g/dl (32.0-36.0); MEAN CELL VOLUME 77.2 fl (80-96); MEAN PLT VOLUME 7.7 fl (7.5-11.1); PLATELET COUNT 318 10^3/uL (134-434); RBC 2.88 M/mm3 (3.60-5.2); RDW 19.8 % (11.6-15.6); WHITE BLOOD COUNT 27.4 K/mm3 (4.0-10.0)
[2021-06-26 08:59] LABS: CALCIUM 8.8 mg/dL (8.5-10.1)
[2021-06-26 09:00] LABS: BLOOD UREA NITROGEN 19.3 mg/dL (7-18)
[2021-06-26 09:03] LABS: CREATININE 0.8 mg/dL (0.55-1.3)
[2021-06-26 09:05] LABS: BILIRUBIN,TOTAL 1.1 mg/dL (0.2-1); TOT PROT 6.9 g/dl (6.4-8.2)
[2021-06-26 09:12] LABS: HEMOGLOBIN 6.9 GM/dL (10.7-15.3)
[2021-06-26 11:53] LABS: ANISOCYTOSIS 1+; MACROCYTOSIS 1+; PLATELET ESTIMATE NORMAL; ROULEAU 1+
[2021-06-26 18:28] VITALS: BP 120/66; PULSE 101; TEMP 98.3
[2021-06-26 19:12] LABS: BASO % 0.3 % (0-2.0); EOS % 0.9 % (0-4.5); HEMATOCRIT 28.3 % (32.4-45.2); LYMPH % 7.1 % (8-40); MCH 25.1 pg (25.7-33.7); MCHC 31.8 g/dl (32.0-36.0); MEAN CELL VOLUME 78.9 fl (80-96); MEAN PLT VOLUME 7.6 fl (7.5-11.1); NEUT % 89.7 % (42.8-82.8); PLATELET COUNT 277 10^3/uL (134-434); RBC 3.58 M/mm3 (3.60-5.2); RDW 19.1 % (11.6-15.6); WHITE BLOOD COUNT 23.8 K/mm3 (4.0-10.0)
== END 2021-06-26 18:30 | disposition home or self-care (01) ==
LOC: JONCBLOOD 07:19
PROVIDERS: ATTEND Internal Medicine Hematology & Oncology
PROC: 30243N1 Transfusion of Nonautologous Red Blood Cells into Central Vein, Percutaneous Approach (ICD-10-PCS; principal; 2021-06-26)
DX: Z76.89 Persons encountering health services in other specified circumstances (principal); C7A.1 Malignant poorly differentiated neuroendocrine tumors; I10 Essential (primary) hypertension; E11.9 Type 2 diabetes mellitus without complications; E78.00 Pure hypercholesterolemia, unspecified
CPT/HCPCS: 36415; 36430; 36511; 80053; 83615; 83735; 85025; 86850; 86900; 86901; 86922; P9016; P9058

== ENCOUNTER 2021-06-29 07:32 | Day surgery (SDC) | payer OTHER ==
[2021-06-29] MEDS ORDERED: SODIUM CHLORIDE 250 ML IV ONE (10:00)
[2021-06-29] MEDS ORDERED: FAMOTIDINE 20 MG/50 ML IVPB 20 MG/50 ML MG IVPB ONE (10:30)
[2021-06-29] MEDS ORDERED: PALONOSETRON HCL 0.25 MG/5 ML VIAL IVPUSH ONE (10:30)
[2021-06-29] MEDS ORDERED: DEXAMETHASONE SODIUM PHOSPHATE 12 MG, DIPHENHYDRAMINE 25 MG in SODIUM CHLORIDE 100 ML IVPB ONE (10:30)
[2021-06-29] MEDS ORDERED: SODIUM CHLORIDE 500 ML IV STA (10:39)
[2021-06-29] MEDS ORDERED: PACLITAXEL 108 MG in SODIUM CHLORIDE 250 ML IVPB ONE (11:00)
[2021-06-29 11:43] LABS: BASO % 0.4 % (0-2.0); EOS % 0.7 % (0-4.5); HEMATOCRIT 26.1 % (32.4-45.2); HEMOGLOBIN 8.4 GM/dL (10.7-15.3); LYMPH % 9.2 % (8-40); MCH 25.5 pg (25.7-33.7); MCHC 32.1 g/dl (32.0-36.0); MEAN CELL VOLUME 79.6 fl (80-96); MEAN PLT VOLUME 7.7 fl (7.5-11.1); MONO % 8.6 % (3.8-10.2); NEUT % 81.1 % (42.8-82.8); PLATELET COUNT 283 10^3/uL (134-434); RBC 3.28 M/mm3 (3.60-5.2); RDW 19.9 % (11.6-15.6); WHITE BLOOD COUNT 11.8 K/mm3 (4.0-10.0)
[2021-06-29] MEDS ORDERED: SODIUM CHLORIDE IVPB ONE (12:00)
[2021-06-29] MEDS ORDERED: CARBOPLATIN IVPB ONE (12:00)
[2021-06-29 12:06] LABS: BLOOD UREA NITROGEN 14.6 mg/dL (7-18); CALCIUM 9.6 mg/dL (8.5-10.1)
[2021-06-29 12:08] LABS: CREATININE 0.7 mg/dL (0.55-1.3)
[2021-06-29 12:10] LABS: BILIRUBIN,TOTAL 1.6 mg/dL (0.2-1)
[2021-06-29 16:02] VITALS: BP 135/72; PULSE 93; TEMP 99.3
[2021-06-29] MEDS ORDERED: PORTA CATH FLUSH 10 ML IVPUSH PRN (16:03)
== END 2021-06-29 16:35 | disposition home or self-care (01) ==
LOC: JONCCHEMO 07:32
PROVIDERS: ATTEND Internal Medicine Hematology & Oncology
PROC: 3E04305 Introduction of Other Antineoplastic into Central Vein, Percutaneous Approach (ICD-10-PCS; principal; 2021-06-29)
PROC: 3E043GC Introduction of Other Therapeutic Substance into Central Vein, Percutaneous Approach (ICD-10-PCS; 2021-06-29)
PROC: 3E0437Z Introduction of Electrolytic and Water Balance Substance into Central Vein, Percutaneous Approach (ICD-10-PCS; 2021-06-29)
DX: Z51.11 Encounter for antineoplastic chemotherapy (principal); C7A.1 Malignant poorly differentiated neuroendocrine tumors; I10 Essential (primary) hypertension; E11.9 Type 2 diabetes mellitus without complications; E78.00 Pure hypercholesterolemia, unspecified
CPT/HCPCS: 36415; 80053; 85025; 96361; 96367; 96413; 96417; J2469

== ENCOUNTER 2021-07-06 07:34 | Day surgery (SDC) | payer OTHER ==
[2021-07-06] MEDS ORDERED: SODIUM CHLORIDE 250 ML IV ONE (10:00)
[2021-07-06 10:22] LABS: BASO % 0.3 % (0-2.0); EOS % 0.1 % (0-4.5); HEMATOCRIT 24.5 % (32.4-45.2); HEMOGLOBIN 8.2 GM/dL (10.7-15.3); LYMPH % 9.5 % (8-40); MCH 26.6 pg (25.7-33.7); MCHC 33.3 g/dl (32.0-36.0); MEAN CELL VOLUME 79.8 fl (80-96); MONO % 10.3 % (3.8-10.2); NEUT % 79.8 % (42.8-82.8); PLATELET COUNT 569 10^3/uL (134-434); RBC 3.08 M/mm3 (3.60-5.2); RDW 21.8 % (11.6-15.6); WHITE BLOOD COUNT 10.2 K/mm3 (4.0-10.0)
[2021-07-06] MEDS ORDERED: PALONOSETRON HCL 0.25 MG/5 ML VIAL IVPUSH ONE (10:30)
[2021-07-06] MEDS ORDERED: FAMOTIDINE 20 MG/50 ML IVPB 20 MG/50 ML MG IVPB ONE (10:30)
[2021-07-06] MEDS ORDERED: DEXAMETHASONE SODIUM PHOSPHATE 12 MG, DIPHENHYDRAMINE 25 MG in SODIUM CHLORIDE 100 ML IVPB ONE (10:30)
[2021-07-06 10:42] LABS: ANISOCYTOSIS 1+; BLOOD UREA NITROGEN 12.2 mg/dL (7-18); CALCIUM 9.4 mg/dL (8.5-10.1); MACROCYTOSIS 1+; PLATELET ESTIMATE INCREASED
[2021-07-06 10:45] LABS: CREATININE 0.8 mg/dL (0.55-1.3)
[2021-07-06 10:47] LABS: BILIRUBIN,TOTAL 1.1 mg/dL (0.2-1); TOT PROT 7.2 g/dl (6.4-8.2)
[2021-07-06] MEDS ORDERED: PACLITAXEL 108 MG in SODIUM CHLORIDE 250 ML IVPB ONE (11:00)
[2021-07-06] MEDS ORDERED: SODIUM CHLORIDE 500 ML IV STA (11:19)
[2021-07-06] MEDS ORDERED: CARBOPLATIN IVPB ONE (12:00)
[2021-07-06] MEDS ORDERED: SODIUM CHLORIDE IVPB ONE (12:00)
[2021-07-06] MEDS ORDERED: DEXAMETHASONE SOD PHOSPHATE 10 MG/1 ML VIAL IVPB ONE (12:54)
[2021-07-06 15:39] VITALS: BP 131/64; PULSE 97; TEMP 98.6
[2021-07-06] MEDS ORDERED: PORTA CATH FLUSH 10 ML IVPUSH ONE (15:39)
== END 2021-07-06 14:30 | disposition home or self-care (01) ==
LOC: JONCCHEMO 07:34
PROVIDERS: ATTEND Internal Medicine Hematology & Oncology
PROC: 3E033GC Introduction of Other Therapeutic Substance into Peripheral Vein, Percutaneous Approach (ICD-10-PCS; principal; 2021-07-06)
PROC: 3E0337Z Introduction of Electrolytic and Water Balance Substance into Peripheral Vein, Percutaneous Approach (ICD-10-PCS; 2021-07-06)
DX: Z76.89 Persons encountering health services in other specified circumstances (principal); C7A.1 Malignant poorly differentiated neuroendocrine tumors; I10 Essential (primary) hypertension; E11.9 Type 2 diabetes mellitus without complications; E78.00 Pure hypercholesterolemia, unspecified
CPT/HCPCS: 36415; 80053; 85025; 96361; 96365; 96367; 96375; J1100; J2469

== ENCOUNTER 2021-07-13 07:03 | Day surgery (SDC) | payer OTHER ==
[2021-07-13] MEDS ORDERED: SODIUM CHLORIDE 250 ML IV ONE (10:00)
[2021-07-13] MEDS ORDERED: PEMBROLIZUMAB 200 MG in SODIUM CHLORIDE 100 ML IVPB ONE (10:30)
[2021-07-13 10:43] LABS: HEMATOCRIT 24.4 % (32.4-45.2); HEMOGLOBIN 7.8 GM/dL (10.7-15.3); MCH 25.8 pg (25.7-33.7); MEAN CELL VOLUME 80.6 fl (80-96); MEAN PLT VOLUME 6.9 fl (7.5-11.1); PLATELET COUNT 642 10^3/uL (134-434); RBC 3.02 M/mm3 (3.60-5.2); RDW 22.7 % (11.6-15.6); WHITE BLOOD COUNT 15.4 K/mm3 (4.0-10.0)
[2021-07-13] MEDS ORDERED: SODIUM CHLORIDE 500 ML IV STA (10:55)
[2021-07-13 11:09] LABS: BLOOD UREA NITROGEN 14.4 mg/dL (7-18)
[2021-07-13 11:10] LABS: ALBUMIN 1.6 g/dl (3.4-5.0)
[2021-07-13 11:13] LABS: CREATININE 0.9 mg/dL (0.55-1.3)
[2021-07-13 11:14] LABS: BILIRUBIN,TOTAL 1.1 mg/dL (0.2-1); TOT PROT 6.6 g/dl (6.4-8.2)
[2021-07-13 12:22] LABS: ANISOCYTOSIS 2+; MACROCYTOSIS 1+; OVALOCYTE 2+; PLATELET ESTIMATE INCREASED; TOXIC GRANULATION 3+
[2021-07-13 16:06] VITALS: BP 113/66; PULSE 98; TEMP 98.7
[2021-07-13] MEDS ORDERED: PORTA CATH FLUSH 10 ML IVPUSH ONE (16:06)
== END 2021-07-13 14:35 | disposition home or self-care (01) ==
LOC: JONCCHEMO 07:03
PROVIDERS: ATTEND Internal Medicine Hematology & Oncology
PROC: 3E04305 Introduction of Other Antineoplastic into Central Vein, Percutaneous Approach (ICD-10-PCS; principal; 2021-07-13)
PROC: 3E0437Z Introduction of Electrolytic and Water Balance Substance into Central Vein, Percutaneous Approach (ICD-10-PCS; 2021-07-13)
DX: Z51.11 Encounter for antineoplastic chemotherapy (principal); C7A.1 Malignant poorly differentiated neuroendocrine tumors; I10 Essential (primary) hypertension; E11.9 Type 2 diabetes mellitus without complications; E78.00 Pure hypercholesterolemia, unspecified
CPT/HCPCS: 36415; 80053; 84439; 84443; 85025; 96361; 96413; J9271

== ENCOUNTER 2021-08-03 08:11 | Day surgery (SDC) | payer OTHER ==
[~2021-08-03 08:11] MED LIST changes: -FAMOTIDINE 20 MG/50 ML IVPB 20 MG/50 ML MG IVPB ONE; +SODIUM CHLORIDE 250 ML IV ONE
[2021-08-03 09:21] LABS: BASO % 0.4 % (0-2.0); EOS % 0.5 % (0-4.5); HEMATOCRIT 22.8 % (32.4-45.2); HEMOGLOBIN 7.3 GM/dL (10.7-15.3); LYMPH % 8.7 % (8-40); MCH 26.4 pg (25.7-33.7); MCHC 31.8 g/dl (32.0-36.0); MEAN CELL VOLUME 83.3 fl (80-96); MEAN PLT VOLUME 6.8 fl (7.5-11.1); MONO % 7.4 % (3.8-10.2); PLATELET COUNT 535 10^3/uL (134-434); RBC 2.74 M/mm3 (3.60-5.2); RDW 22.6 % (11.6-15.6); WHITE BLOOD COUNT 18.7 K/mm3 (4.0-10.0)
[2021-08-03 09:42] LABS: BLOOD UREA NITROGEN 9.9 mg/dL (7-18); CALCIUM 8.9 mg/dL (8.5-10.1)
[2021-08-03 09:43] LABS: ALBUMIN 1.3 g/dl (3.4-5.0)
[2021-08-03 09:45] LABS: CREATININE 0.7 mg/dL (0.55-1.3)
[2021-08-03 09:47] LABS: BILIRUBIN,TOTAL 0.8 mg/dL (0.2-1); TOT PROT 7.6 g/dl (6.4-8.2)
[2021-08-03] MEDS ORDERED: SODIUM CHLORIDE 250 ML IV ONE ×2 (10:00)
[2021-08-03] MEDS ORDERED: PEMBROLIZUMAB 200 MG in SODIUM CHLORIDE 100 ML IVPB ONE (10:30)
[2021-08-03 11:53] LABS: ANISOCYTOSIS 1+; MACROCYTOSIS 2+
[2021-08-03 13:35] VITALS: PULSE 91
[2021-08-03 16:38] VITALS: BP 132/70; TEMP 98.6
[2021-08-03 17:51] LABS: HEMATOCRIT 24.9 % (32.4-45.2); HEMOGLOBIN 8.1 GM/dL (10.7-15.3); MCH 27.1 pg (25.7-33.7); MCHC 32.6 g/dl (32.0-36.0); MEAN CELL VOLUME 83.2 fl (80-96); MEAN PLT VOLUME 6.9 fl (7.5-11.1); PLATELET COUNT 504 10^3/uL (134-434); RBC 2.99 M/mm3 (3.60-5.2); RDW 20.6 % (11.6-15.6); WHITE BLOOD COUNT 20.3 K/mm3 (4.0-10.0)
== END 2021-08-03 16:44 | disposition home or self-care (01) ==
LOC: JONCCHEMO 08:11
PROVIDERS: ATTEND Internal Medicine Hematology & Oncology
PROC: 3E04305 Introduction of Other Antineoplastic into Central Vein, Percutaneous Approach (ICD-10-PCS; principal; 2021-08-03)
PROC: 30243H1 Transfusion of Nonautologous Whole Blood into Central Vein, Percutaneous Approach (ICD-10-PCS; 2021-08-03)
DX: Z51.11 Encounter for antineoplastic chemotherapy (principal); C7A.1 Malignant poorly differentiated neuroendocrine tumors; C78.7 Secondary malignant neoplasm of liver and intrahepatic bile duct
CPT/HCPCS: 36415; 36430; 80053; 84439; 84443; 85025; 85027; 86850; 86900; 86901; 86922; 96413; J9271; P9058

== ENCOUNTER 2021-08-24 07:54 | Day surgery (SDC) | payer OTHER ==
[2021-08-24] MEDS ORDERED: SODIUM CHLORIDE 250 ML IV ONE (09:00)
[2021-08-24] MEDS ORDERED: PEMBROLIZUMAB 200 MG in SODIUM CHLORIDE 100 ML IV ONE (10:00)
[2021-08-24 10:31] LABS: BASO % 0.8 % (0-2.0); EOS % 14.5 % (0-4.5); HEMATOCRIT 31.1 % (32.4-45.2); HEMOGLOBIN 10.2 GM/dL (10.7-15.3); LYMPH % 30.1 % (8-40); MCH 28.3 pg (25.7-33.7); MCHC 32.7 g/dl (32.0-36.0); MEAN CELL VOLUME 86.4 fl (80-96); MONO % 7.3 % (3.8-10.2); NEUT % 47.3 % (42.8-82.8); PLATELET COUNT 400 10^3/uL (134-434); RDW 19.6 % (11.6-15.6); WHITE BLOOD COUNT 7.4 K/mm3 (4.0-10.0)
[2021-08-24 10:56] LABS: CALCIUM 9.9 mg/dL (8.5-10.1)
[2021-08-24 10:57] LABS: ALBUMIN 2.6 g/dl (3.4-5.0); BLOOD UREA NITROGEN 19.1 mg/dL (7-18)
[2021-08-24 10:59] LABS: CREATININE 0.8 mg/dL (0.55-1.3)
[2021-08-24 11:01] LABS: TOT PROT 7.8 g/dl (6.4-8.2)
[2021-08-24 11:02] LABS: BILIRUBIN,TOTAL 0.4 mg/dL (0.2-1)
[2021-08-24 16:00] VITALS: TEMP 98.3
[2021-08-24 16:03] VITALS: BP 137/74; PULSE 78
== END 2021-08-24 13:00 | disposition home or self-care (01) ==
LOC: JONCCHEMO 07:54
PROVIDERS: ATTEND Internal Medicine Hematology & Oncology
DX: Z51.11 Encounter for antineoplastic chemotherapy (principal); C7A.1 Malignant poorly differentiated neuroendocrine tumors; C78.7 Secondary malignant neoplasm of liver and intrahepatic bile duct
CPT/HCPCS: 36415; 80053; 85025; 96413; J9271

== ENCOUNTER 2021-09-14 08:17 | Day surgery (SDC) | payer OTHER ==
[2021-09-14] MEDS ORDERED: SODIUM CHLORIDE 250 ML IV ONE (09:30)
[2021-09-14] MEDS ORDERED: PEMBROLIZUMAB 200 MG in SODIUM CHLORIDE 100 ML IV ONE (10:00)
[2021-09-14 11:18] LABS: BASO % 1.1 % (0-2.0); EOS % 13.3 % (0-4.5); HEMOGLOBIN 11.1 GM/dL (10.7-15.3); LYMPH % 33.9 % (8-40); MCH 28.8 pg (25.7-33.7); MCHC 32.7 g/dl (32.0-36.0); MEAN CELL VOLUME 88.2 fl (80-96); MEAN PLT VOLUME 7.4 fl (7.5-11.1); MONO % 6.3 % (3.8-10.2); NEUT % 45.4 % (42.8-82.8); PLATELET COUNT 383 10^3/uL (134-434); RBC 3.85 M/mm3 (3.60-5.2); RDW 16.6 % (11.6-15.6); WHITE BLOOD COUNT 7.7 K/mm3 (4.0-10.0)
[2021-09-14 11:35] LABS: ALBUMIN 2.8 g/dl (3.4-5.0); BLOOD UREA NITROGEN 16.9 mg/dL (7-18); CALCIUM 10.2 mg/dL (8.5-10.1)
[2021-09-14 11:41] LABS: BILIRUBIN,TOTAL 0.4 mg/dL (0.2-1); TOT PROT 7.9 g/dl (6.4-8.2)
[2021-09-14] MEDS ORDERED: SODIUM CHLORIDE 250 ML IV STA (11:47)
[2021-09-14] MEDS ORDERED: PORTA CATH FLUSH 10 ML IVPUSH PRN (17:01)
[2021-09-14 17:02] VITALS: BP 149/83; PULSE 75; TEMP 98.4
== END 2021-09-14 14:00 | disposition home or self-care (01) ==
LOC: JONCCHEMO 08:17
PROVIDERS: ATTEND Internal Medicine Hematology & Oncology
DX: Z51.11 Encounter for antineoplastic chemotherapy (principal); C7A.1 Malignant poorly differentiated neuroendocrine tumors; C78.7 Secondary malignant neoplasm of liver and intrahepatic bile duct
CPT/HCPCS: 36415; 80053; 82550; 83615; 84439; 84443; 85025; 96361; 96367; 96413; J9271

== ENCOUNTER 2021-10-05 08:12 | Day surgery (SDC) | payer OTHER ==
[2021-10-05] MEDS ORDERED: SODIUM CHLORIDE 250 ML IV ONE (09:30)
[2021-10-05] MEDS ORDERED: PEMBROLIZUMAB 200 MG in SODIUM CHLORIDE 100 ML IV ONE (10:00)
[2021-10-05 11:41] LABS: BASO % 0.7 % (0-2.0); EOS % 17.3 % (0-4.5); HEMATOCRIT 35.3 % (32.4-45.2); HEMOGLOBIN 11.9 GM/dL (10.7-15.3); MCH 29.3 pg (25.7-33.7); MCHC 33.8 g/dl (32.0-36.0); MEAN CELL VOLUME 86.6 fl (80-96); MEAN PLT VOLUME 7.2 fl (7.5-11.1); MONO % 7.7 % (3.8-10.2); NEUT % 49.3 % (42.8-82.8); PLATELET COUNT 402 10^3/uL (134-434); RBC 4.08 M/mm3 (3.60-5.2); RDW 13.8 % (11.6-15.6); WHITE BLOOD COUNT 8.2 K/mm3 (4.0-10.0)
[2021-10-05 12:01] LABS: CALCIUM 10.6 mg/dL (8.5-10.1)
[2021-10-05 12:02] LABS: ALBUMIN 3.3 g/dl (3.4-5.0); BLOOD UREA NITROGEN 18.1 mg/dL (7-18)
[2021-10-05 12:07] LABS: BILIRUBIN,TOTAL 0.3 mg/dL (0.2-1); TOT PROT 8.4 g/dl (6.4-8.2)
[2021-10-05 17:45] VITALS: TEMP 98.3
[2021-10-05 17:51] VITALS: BP 147/68; PULSE 84
[2021-10-05] MEDS ORDERED: PORTA CATH FLUSH 10 ML IVPUSH PRN (17:51)
== END 2021-10-05 15:00 | disposition home or self-care (01) ==
LOC: JONCCHEMO 08:12
PROVIDERS: ATTEND Internal Medicine Hematology & Oncology
DX: Z51.11 Encounter for antineoplastic chemotherapy (principal); C7A.1 Malignant poorly differentiated neuroendocrine tumors; C78.7 Secondary malignant neoplasm of liver and intrahepatic bile duct
CPT/HCPCS: 36415; 80053; 82607; 85025; 96413; J9271

== ENCOUNTER 2021-10-26 07:18 | Day surgery (SDC) | payer OTHER ==
[2021-10-26] MEDS ORDERED: SODIUM CHLORIDE 250 ML IV ONE (09:30)
[2021-10-26] MEDS ORDERED: PEMBROLIZUMAB 200 MG in SODIUM CHLORIDE 100 ML IV ONE (10:00)
[2021-10-26 10:20] LABS: BASO % 0.5 % (0-2.0); EOS % 14.8 % (0-4.5); HEMATOCRIT 36.3 % (32.4-45.2); HEMOGLOBIN 11.9 GM/dL (10.7-15.3); LYMPH % 23.5 % (8-40); MCH 28.4 pg (25.7-33.7); MCHC 32.8 g/dl (32.0-36.0); MEAN CELL VOLUME 86.8 fl (80-96); MEAN PLT VOLUME 7.3 fl (7.5-11.1); MONO % 5.4 % (3.8-10.2); NEUT % 55.8 % (42.8-82.8); PLATELET COUNT 416 10^3/uL (134-434); RBC 4.18 M/mm3 (3.60-5.2); RDW 13.5 % (11.6-15.6)
[2021-10-26 10:40] LABS: ALBUMIN 3.1 g/dl (3.4-5.0); BLOOD UREA NITROGEN 16.4 mg/dL (7-18); CALCIUM 9.8 mg/dL (8.5-10.1)
[2021-10-26 10:43] LABS: CREATININE 1.1 mg/dL (0.55-1.3)
[2021-10-26 10:45] LABS: BILIRUBIN,TOTAL 0.2 mg/dL (0.2-1); TOT PROT 7.9 g/dl (6.4-8.2)
[2021-10-26 16:24] VITALS: BP 125/67; PULSE 66; TEMP 98.6
[2021-10-26] MEDS ORDERED: PORTA CATH FLUSH 10 ML IVPUSH PRN (16:24)
== END 2021-10-26 12:20 | disposition home or self-care (01) ==
LOC: JONCCHEMO 07:18
PROVIDERS: ATTEND Internal Medicine Hematology & Oncology
DX: Z51.11 Encounter for antineoplastic chemotherapy (principal); C7A.1 Malignant poorly differentiated neuroendocrine tumors; C78.7 Secondary malignant neoplasm of liver and intrahepatic bile duct
CPT/HCPCS: 36415; 80053; 83615; 84439; 84443; 85025; 96413; J9271

== ENCOUNTER 2021-11-16 06:30 | Day surgery (SDC) | payer OTHER ==
[2021-11-16 10:55] LABS: ALBUMIN 3.4 g/dl (3.4-5.0); BLOOD UREA NITROGEN 17.2 mg/dL (7-18)
[2021-11-16 11:00] LABS: BILIRUBIN,TOTAL 0.3 mg/dL (0.2-1); TOT PROT 8.6 g/dl (6.4-8.2)
[2021-11-16] MEDS ORDERED: SODIUM CHLORIDE 250 ML IV ONE (11:00)
[2021-11-16] MEDS ORDERED: PEMBROLIZUMAB 200 MG in SODIUM CHLORIDE 100 ML IV ONE (11:00)
[2021-11-16 11:25] LABS: BASO % 0.6 % (0-2.0); HEMATOCRIT 36.6 % (32.4-45.2); HEMOGLOBIN 12.4 GM/dL (10.7-15.3); LYMPH % 21.6 % (8-40); MCHC 33.7 g/dl (32.0-36.0); MEAN CELL VOLUME 86.1 fl (80-96); MONO % 5.3 % (3.8-10.2); NEUT % 56.5 % (42.8-82.8); PLATELET COUNT 446 10^3/uL (134-434); RBC 4.25 M/mm3 (3.60-5.2); RDW 13.7 % (11.6-15.6); WHITE BLOOD COUNT 8.4 K/mm3 (4.0-10.0)
[2021-11-16] MEDS ORDERED: PORTA CATH FLUSH 10 ML IVPUSH PRN (17:37)
[2021-11-16 17:38] VITALS: BP 135/65; PULSE 72; TEMP 98.5
== END 2021-11-16 13:30 | disposition home or self-care (01) ==
LOC: JONCCHEMO 06:30
PROVIDERS: ATTEND Internal Medicine Hematology & Oncology
DX: Z51.11 Encounter for antineoplastic chemotherapy (principal); C7A.1 Malignant poorly differentiated neuroendocrine tumors; C78.7 Secondary malignant neoplasm of liver and intrahepatic bile duct
CPT/HCPCS: 36415; 80053; 82150; 83690; 84439; 84443; 85025; 96413; J9271

== ENCOUNTER 2021-12-07 07:19 | Day surgery (SDC) | payer OTHER ==
[2021-12-07] MEDS ORDERED: SODIUM CHLORIDE 250 ML IV ONE (10:00)
[2021-12-07 10:25] LABS: EOS % 10.4 % (0-4.5); HEMATOCRIT 37.3 % (32.4-45.2); HEMOGLOBIN 12.6 GM/dL (10.7-15.3); LYMPH % 32.2 % (8-40); MCH 29.5 pg (25.7-33.7); MCHC 33.8 g/dl (32.0-36.0); MEAN CELL VOLUME 87.2 fl (80-96); MEAN PLT VOLUME 6.9 fl (7.5-11.1); MONO % 6.4 % (3.8-10.2); PLATELET COUNT 342 10^3/uL (134-434); RBC 4.27 M/mm3 (3.60-5.2); RDW 14.7 % (11.6-15.6); WHITE BLOOD COUNT 7.9 K/mm3 (4.0-10.0)
[2021-12-07] MEDS ORDERED: PEMBROLIZUMAB 200 MG in SODIUM CHLORIDE 100 ML IV ONE (10:30)
[2021-12-07 10:43] LABS: CALCIUM 9.6 mg/dL (8.5-10.1)
[2021-12-07 10:44] LABS: ALBUMIN 3.6 g/dl (3.4-5.0)
[2021-12-07 10:47] LABS: CREATININE 1.1 mg/dL (0.55-1.3)
[2021-12-07 10:48] LABS: TOT PROT 8.5 g/dl (6.4-8.2)
[2021-12-07 10:49] LABS: BILIRUBIN,TOTAL 0.4 mg/dL (0.2-1)
[2021-12-07 11:29] VITALS: PULSE 64; TEMP 98.3
[2021-12-07] MEDS ORDERED: PORTA CATH FLUSH 10 ML IVPUSH PRN (11:57)
[2021-12-07 12:42] VITALS: BP 133/72
== END 2021-12-07 12:45 | disposition home or self-care (01) ==
LOC: JONCCHEMO 07:19
PROVIDERS: ATTEND Internal Medicine Hematology & Oncology
PROC: 3E04305 Introduction of Other Antineoplastic into Central Vein, Percutaneous Approach (ICD-10-PCS; principal; 2021-12-07)
PROC: 3E0437Z Introduction of Electrolytic and Water Balance Substance into Central Vein, Percutaneous Approach (ICD-10-PCS; 2021-12-07)
DX: Z51.11 Encounter for antineoplastic chemotherapy (principal); C7A.1 Malignant poorly differentiated neuroendocrine tumors; C78.7 Secondary malignant neoplasm of liver and intrahepatic bile duct
CPT/HCPCS: 36415; 80053; 84439; 84443; 85025; 96413; J9271

== ENCOUNTER 2021-12-28 07:23 | Day surgery (SDC) | payer OTHER ==
[2021-12-28] MEDS ORDERED: SODIUM CHLORIDE 250 ML IV ONE (09:30)
[2021-12-28] MEDS ORDERED: PEMBROLIZUMAB 200 MG in SODIUM CHLORIDE 100 ML IV ONE (10:00)
[2021-12-28 10:52] LABS: BASO % 1.1 % (0-2.0); EOS % 9.3 % (0-4.5); HEMATOCRIT 37.9 % (32.4-45.2); HEMOGLOBIN 12.8 GM/dL (10.7-15.3); LYMPH % 32.9 % (8-40); MCH 29.9 pg (25.7-33.7); MCHC 33.8 g/dl (32.0-36.0); MEAN CELL VOLUME 88.5 fl (80-96); MEAN PLT VOLUME 7.3 fl (7.5-11.1); MONO % 6.1 % (3.8-10.2); NEUT % 50.6 % (42.8-82.8); PLATELET COUNT 343 10^3/uL (134-434); RBC 4.29 M/mm3 (3.60-5.2); RDW 15.9 % (11.6-15.6); WHITE BLOOD COUNT 7.8 K/mm3 (4.0-10.0)
[2021-12-28 11:01] LABS: ALBUMIN 3.9 g/dl (3.4-5.0); BLOOD UREA NITROGEN 22.6 mg/dL (7-18); CALCIUM 10.3 mg/dL (8.5-10.1)
[2021-12-28 11:04] LABS: CREATININE 1.1 mg/dL (0.55-1.3)
[2021-12-28 11:06] LABS: BILIRUBIN,TOTAL 0.5 mg/dL (0.2-1); TOT PROT 8.8 g/dl (6.4-8.2)
[2021-12-28 16:50] VITALS: RESP 18; TEMP 97.8
[2021-12-28 17:07] VITALS: BP 135/75; PULSE 63
[2021-12-28] MEDS ORDERED: PORTA CATH FLUSH 10 ML IVPUSH PRN (17:07)
== END 2021-12-28 14:30 | disposition home or self-care (01) ==
LOC: JONCCHEMO 07:23
PROVIDERS: ATTEND Internal Medicine Hematology & Oncology
DX: Z51.11 Encounter for antineoplastic chemotherapy (principal); C7A.1 Malignant poorly differentiated neuroendocrine tumors; C78.7 Secondary malignant neoplasm of liver and intrahepatic bile duct
CPT/HCPCS: 36415; 80053; 84439; 84443; 85025; 96413; J9271

== ENCOUNTER 2022-01-18 06:56 | Day surgery (SDC) | payer OTHER ==
[2022-01-18 09:19] LABS: EOS % 10.8 % (0-4.5); HEMATOCRIT 36.9 % (32.4-45.2); HEMOGLOBIN 12.7 GM/dL (10.7-15.3); LYMPH % 33.1 % (8-40); MCH 30.6 pg (25.7-33.7); MCHC 34.4 g/dl (32.0-36.0); MEAN CELL VOLUME 88.8 fl (80-96); MONO % 6.5 % (3.8-10.2); NEUT % 48.6 % (42.8-82.8); PLATELET COUNT 311 10^3/uL (134-434); RBC 4.15 M/mm3 (3.60-5.2); RDW 16.2 % (11.6-15.6)
[2022-01-18 09:41] LABS: BLOOD UREA NITROGEN 22.8 mg/dL (7-18); CALCIUM 10.1 mg/dL (8.5-10.1)
[2022-01-18 09:45] LABS: CREATININE 1.3 mg/dL (0.55-1.3)
[2022-01-18 09:46] LABS: BILIRUBIN,TOTAL 0.4 mg/dL (0.2-1); TOT PROT 8.6 g/dl (6.4-8.2)
[2022-01-18] MEDS ORDERED: SODIUM CHLORIDE 250 ML IV ONE (10:00)
[2022-01-18] MEDS ORDERED: PEMBROLIZUMAB 200 MG in SODIUM CHLORIDE 100 ML IV ONE (10:00)
[2022-01-18 10:33] VITALS: RESP 18; TEMP 98.5
[2022-01-18 14:39] VITALS: BP 147/71; PULSE 77
[2022-01-18] MEDS ORDERED: PORTA CATH FLUSH 10 ML IVPUSH PRN (14:39)
== END 2022-01-18 12:30 | disposition home or self-care (01) ==
LOC: JONCCHEMO 06:56
PROVIDERS: ATTEND Internal Medicine Hematology & Oncology
DX: Z51.11 Encounter for antineoplastic chemotherapy (principal); C7A.1 Malignant poorly differentiated neuroendocrine tumors; C78.7 Secondary malignant neoplasm of liver and intrahepatic bile duct
CPT/HCPCS: 36415; 80053; 84439; 84443; 85025; 96413; J9271

== ENCOUNTER 2022-02-06 06:39 | Day surgery (SDC) | payer OTHER ==
[2022-02-06] MEDS ORDERED: SODIUM CHLORIDE 250 ML IV ONE (09:30)
[2022-02-06] MEDS ORDERED: PEMBROLIZUMAB 200 MG in SODIUM CHLORIDE 100 ML IV ONE (10:00)
[2022-02-06 10:57] LABS: EOS % 12.9 % (0-4.5); HEMATOCRIT 38.6 % (32.4-45.2); HEMOGLOBIN 13.4 GM/dL (10.7-15.3); LYMPH % 27.3 % (8-40); MCH 31.9 pg (25.7-33.7); MCHC 34.6 g/dl (32.0-36.0); MEAN CELL VOLUME 92.2 fl (80-96); MEAN PLT VOLUME 7.4 fl (7.5-11.1); MONO % 5.6 % (3.8-10.2); NEUT % 53.2 % (42.8-82.8); PLATELET COUNT 314 10^3/uL (134-434); RBC 4.19 M/mm3 (3.60-5.2); RDW 15.3 % (11.6-15.6); WHITE BLOOD COUNT 8.5 K/mm3 (4.0-10.0)
[2022-02-06 11:26] LABS: BLOOD UREA NITROGEN 21.6 mg/dL (7-18); CALCIUM 10.5 mg/dL (8.5-10.1); MAGNESIUM 2.2 mg/dL (1.8-2.4)
[2022-02-06 11:28] LABS: BILIRUBIN,DIRECT 0.2 mg/dL (0.0-0.2)
[2022-02-06 11:29] LABS: CREATININE 1.2 mg/dL (0.55-1.3)
[2022-02-06 11:30] LABS: BILIRUBIN,TOTAL 0.3 mg/dL (0.2-1); TOT PROT 8.8 g/dl (6.4-8.2)
[2022-02-06 16:13] VITALS: BP 140/71; PULSE 63; RESP 18; TEMP 97.4
[2022-02-06] MEDS ORDERED: PORTA CATH FLUSH 10 ML IVPUSH PRN (16:13)
== END 2022-02-06 16:43 | disposition home or self-care (01) ==
LOC: JONCCHEMO 06:39
PROVIDERS: ATTEND Internal Medicine Hematology & Oncology
DX: Z51.11 Encounter for antineoplastic chemotherapy (principal); C7A.1 Malignant poorly differentiated neuroendocrine tumors; C78.7 Secondary malignant neoplasm of liver and intrahepatic bile duct
CPT/HCPCS: 36415; 80048; 80076; 82150; 82378; 82533; 83690; 83735; 84439; 84443; 85025; 96361; 96413; J9271

== ENCOUNTER 2022-02-27 12:00 | Day surgery (SDC) | payer OTHER ==
[~2022-02-27 12:00] MED LIST changes: +PEMBROLIZUMAB 200 MG in SODIUM CHLORIDE 100 ML IV ONE
[2022-02-27 13:17] LABS: BASO % 1.2 % (0-2.0); EOS % 12.9 % (0-4.5); HEMATOCRIT 39.3 % (32.4-45.2); HEMOGLOBIN 13.4 GM/dL (10.7-15.3); LYMPH % 30.5 % (8-40); MCH 31.3 pg (25.7-33.7); MEAN CELL VOLUME 92.1 fl (80-96); MEAN PLT VOLUME 7.5 fl (7.5-11.1); NEUT % 48.4 % (42.8-82.8); PLATELET COUNT 323 10^3/uL (134-434); RBC 4.27 M/mm3 (3.60-5.2); RDW 14.3 % (11.6-15.6)
[2022-02-27 13:34] LABS: CALCIUM 10.2 mg/dL (8.5-10.1)
[2022-02-27 13:35] LABS: BLOOD UREA NITROGEN 22.5 mg/dL (7-18); MAGNESIUM 2.1 mg/dL (1.8-2.4)
[2022-02-27 13:37] LABS: BILIRUBIN,DIRECT 0.1 mg/dL (0.0-0.2)
[2022-02-27 13:39] LABS: BILIRUBIN,TOTAL 0.4 mg/dL (0.2-1); TOT PROT 8.6 g/dl (6.4-8.2)
[2022-02-27 18:27] VITALS: BP 152/83; PULSE 75; RESP 20; TEMP 98.2
[2022-02-27] MEDS ORDERED: PORTA CATH FLUSH 10 ML IVPUSH PRN (18:27)
== END 2022-02-27 15:30 | disposition home or self-care (01) ==
LOC: JONCCHEMO 12:00
PROVIDERS: ATTEND Internal Medicine Hematology & Oncology
PROC: 3E04305 Introduction of Other Antineoplastic into Central Vein, Percutaneous Approach (ICD-10-PCS; principal; 2022-02-27)
PROC: 3E0437Z Introduction of Electrolytic and Water Balance Substance into Central Vein, Percutaneous Approach (ICD-10-PCS; 2022-02-27)
DX: Z51.11 Encounter for antineoplastic chemotherapy (principal); C7A.1 Malignant poorly differentiated neuroendocrine tumors; C78.7 Secondary malignant neoplasm of liver and intrahepatic bile duct
CPT/HCPCS: 36415; 80048; 80076; 82150; 82306; 82378; 82533; 83690; 83735; 83970; 84100; 84439; 84443; 85025; 96361; 96413; J9271

== ENCOUNTER 2022-03-28 11:12 | Day surgery (SDC) | payer OTHER ==
[2022-03-28 11:31] LABS: BASO % 0.7 % (0-2.0); EOS % 11.9 % (0-4.5); HEMOGLOBIN 12.7 GM/dL (10.7-15.3); LYMPH % 32.1 % (8-40); MCH 31.3 pg (25.7-33.7); MCHC 34.3 g/dl (32.0-36.0); MEAN CELL VOLUME 91.5 fl (80-96); MONO % 7.3 % (3.8-10.2); PLATELET COUNT 294 10^3/uL (134-434); RBC 4.04 M/mm3 (3.60-5.2); WHITE BLOOD COUNT 7.5 K/mm3 (4.0-10.0)
[2022-03-28 12:01] LABS: CALCIUM 10.2 mg/dL (8.5-10.1)
[2022-03-28 12:03] LABS: ALBUMIN 3.8 g/dl (3.4-5.0); BLOOD UREA NITROGEN 19.3 mg/dL (7-18); MAGNESIUM 2.1 mg/dL (1.8-2.4)
[2022-03-28 12:05] LABS: BILIRUBIN,DIRECT 0.1 mg/dL (0.0-0.2)
[2022-03-28 12:07] LABS: TOT PROT 8.1 g/dl (6.4-8.2)
[2022-03-28 12:09] LABS: BILIRUBIN,TOTAL 0.4 mg/dL (0.2-1)
[2022-03-28 18:07] VITALS: TEMP 98.1
[2022-03-28] MEDS ORDERED: PORTA CATH FLUSH 10 ML IVPUSH PRN (18:14)
[2022-03-28 18:15] VITALS: BP 175/81; PULSE 65; RESP 18
== END 2022-03-28 14:20 | disposition home or self-care (01) ==
LOC: JONCCHEMO 11:12
PROVIDERS: ATTEND Internal Medicine Hematology & Oncology
DX: Z51.11 Encounter for antineoplastic chemotherapy (principal); C7A.1 Malignant poorly differentiated neuroendocrine tumors; C78.7 Secondary malignant neoplasm of liver and intrahepatic bile duct
CPT/HCPCS: 36415; 80048; 80076; 82150; 82533; 83690; 83735; 84439; 84443; 85025; 96413; J9271

== ENCOUNTER 2022-04-18 11:03 | Day surgery (SDC) | payer OTHER ==
[2022-04-18] MEDS ORDERED: PORTA CATH FLUSH 10 ML IVPUSH PRN (11:35)
[2022-04-18 11:49] LABS: BASO % 0.7 % (0-2.0); EOS % 10.3 % (0-4.5); HEMATOCRIT 39.1 % (32.4-45.2); LYMPH % 34.3 % (8-40); MCH 30.6 pg (25.7-33.7); MCHC 33.3 g/dl (32.0-36.0); MEAN CELL VOLUME 91.7 fl (80-96); MEAN PLT VOLUME 7.5 fl (7.5-11.1); MONO % 7.4 % (3.8-10.2); NEUT % 47.3 % (42.8-82.8); PLATELET COUNT 341 10^3/uL (134-434); RBC 4.26 M/mm3 (3.60-5.2); RDW 12.9 % (11.6-15.6)
[2022-04-18 12:19] LABS: ALBUMIN 3.9 g/dl (3.4-5.0); BLOOD UREA NITROGEN 21.5 mg/dL (7-18)
[2022-04-18 12:21] LABS: BILIRUBIN,DIRECT 0.1 mg/dL (0.0-0.2); CALCIUM 9.7 mg/dL (8.5-10.1); CREATININE 1.1 mg/dL (0.55-1.3)
[2022-04-18 12:23] LABS: BILIRUBIN,TOTAL 0.4 mg/dL (0.2-1); TOT PROT 8.2 g/dl (6.4-8.2)
[2022-04-18 15:18] VITALS: RESP 20
[2022-04-18 15:26] VITALS: BP 142/79; PULSE 62; TEMP 20
== END 2022-04-18 14:00 | disposition home or self-care (01) ==
LOC: JONCCHEMO 11:03
PROVIDERS: ATTEND Internal Medicine Hematology & Oncology
DX: Z51.11 Encounter for antineoplastic chemotherapy (principal); C7A.1 Malignant poorly differentiated neuroendocrine tumors; C78.7 Secondary malignant neoplasm of liver and intrahepatic bile duct
CPT/HCPCS: 36415; 80048; 80076; 82150; 82378; 83690; 83735; 84439; 84443; 85025; 96413; J9271

== ENCOUNTER 2022-05-09 10:57 | Day surgery (SDC) | payer OTHER ==
[2022-05-09 11:51] LABS: BASO % 0.9 % (0-2.0); EOS % 11.9 % (0-4.5); HEMATOCRIT 40.7 % (32.4-45.2); HEMOGLOBIN 13.6 GM/dL (10.7-15.3); LYMPH % 30.7 % (8-40); MCH 30.6 pg (25.7-33.7); MCHC 33.3 g/dl (32.0-36.0); MEAN CELL VOLUME 91.7 fl (80-96); MEAN PLT VOLUME 7.5 fl (7.5-11.1); MONO % 6.1 % (3.8-10.2); NEUT % 50.4 % (42.8-82.8); PLATELET COUNT 361 10^3/uL (134-434); RBC 4.44 M/mm3 (3.60-5.2); RDW 12.9 % (11.6-15.6); WHITE BLOOD COUNT 8.1 K/mm3 (4.0-10.0)
[2022-05-09 12:16] LABS: ALBUMIN 3.9 g/dl (3.4-5.0); BLOOD UREA NITROGEN 26.6 mg/dL (7-18); MAGNESIUM 2.2 mg/dL (1.8-2.4)
[2022-05-09 12:18] LABS: BILIRUBIN,DIRECT 0.1 mg/dL (0.0-0.2)
[2022-05-09 12:19] LABS: CREATININE 1.2 mg/dL (0.55-1.3)
[2022-05-09 12:20] LABS: BILIRUBIN,TOTAL 0.3 mg/dL (0.2-1); TOT PROT 8.2 g/dl (6.4-8.2)
[2022-05-09 16:16] VITALS: RESP 18; TEMP 98.9
[2022-05-09 16:22] VITALS: BP 146/73; PULSE 66
[2022-05-09] MEDS ORDERED: PORTA CATH FLUSH 10 ML IVPUSH PRN (16:22)
== END 2022-05-09 14:15 | disposition home or self-care (01) ==
LOC: JONCCHEMO 10:57
PROVIDERS: ATTEND Internal Medicine Hematology & Oncology
PROC: 3E04305 Introduction of Other Antineoplastic into Central Vein, Percutaneous Approach (ICD-10-PCS; principal; 2022-05-09)
PROC: 3E0337Z Introduction of Electrolytic and Water Balance Substance into Peripheral Vein, Percutaneous Approach (ICD-10-PCS; 2022-05-09)
DX: Z51.11 Encounter for antineoplastic chemotherapy (principal); C7A.1 Malignant poorly differentiated neuroendocrine tumors; C78.7 Secondary malignant neoplasm of liver and intrahepatic bile duct
CPT/HCPCS: 36415; 80048; 80076; 82150; 82378; 82533; 83690; 83735; 84439; 84443; 85025; 96413; J9271

== ENCOUNTER 2022-05-29 10:04 | Day surgery (SDC) | payer OTHER ==
[2022-05-29 10:37] LABS: EOS % 13.9 % (0-4.5); HEMATOCRIT 39.9 % (32.4-45.2); HEMOGLOBIN 13.5 GM/dL (10.7-15.3); LYMPH % 31.4 % (8-40); MCH 30.8 pg (25.7-33.7); MCHC 33.9 g/dl (32.0-36.0); MEAN CELL VOLUME 90.7 fl (80-96); MEAN PLT VOLUME 7.1 fl (7.5-11.1); MONO % 6.9 % (3.8-10.2); NEUT % 46.8 % (42.8-82.8); PLATELET COUNT 342 10^3/uL (134-434); WHITE BLOOD COUNT 7.4 K/mm3 (4.0-10.0)
[2022-05-29 11:08] LABS: ALBUMIN 3.8 g/dl (3.4-5.0); BLOOD UREA NITROGEN 19.3 mg/dL (7-18); MAGNESIUM 2.1 mg/dL (1.8-2.4)
[2022-05-29 11:10] LABS: CREATININE 1.1 mg/dL (0.55-1.3)
[2022-05-29 11:11] LABS: BILIRUBIN,DIRECT 0.2 mg/dL (0.0-0.2)
[2022-05-29 11:12] LABS: BILIRUBIN,TOTAL 0.4 mg/dL (0.2-1); TOT PROT 8.6 g/dl (6.4-8.2)
[2022-05-29 15:32] VITALS: BP 143/79; PULSE 77; RESP 18; TEMP 98.2
[2022-05-29] MEDS ORDERED: PORTA CATH FLUSH 10 ML IVPUSH PRN (15:39)
== END 2022-05-29 13:45 | disposition home or self-care (01) ==
LOC: JONCCHEMO 10:04
PROVIDERS: ATTEND Internal Medicine Hematology & Oncology
PROC: 3E04305 Introduction of Other Antineoplastic into Central Vein, Percutaneous Approach (ICD-10-PCS; principal; 2022-05-29)
PROC: 3E0437Z Introduction of Electrolytic and Water Balance Substance into Central Vein, Percutaneous Approach (ICD-10-PCS; 2022-05-29)
DX: Z51.11 Encounter for antineoplastic chemotherapy (principal); C7A.1 Malignant poorly differentiated neuroendocrine tumors; C78.7 Secondary malignant neoplasm of liver and intrahepatic bile duct
CPT/HCPCS: 36415; 80048; 80076; 82150; 82378; 82533; 83690; 83735; 84439; 84443; 85025; 96413; J9271

== ENCOUNTER 2022-06-20 11:13 | Day surgery (SDC) | payer OTHER ==
[2022-06-20 11:58] LABS: BASO % 0.9 % (0-2.0); HEMATOCRIT 38.1 % (32.4-45.2); HEMOGLOBIN 13.1 GM/dL (10.7-15.3); LYMPH % 33.8 % (8-40); MCH 31.1 pg (25.7-33.7); MCHC 34.4 g/dl (32.0-36.0); MEAN CELL VOLUME 90.4 fl (80-96); MEAN PLT VOLUME 7.6 fl (7.5-11.1); MONO % 6.9 % (3.8-10.2); NEUT % 50.4 % (42.8-82.8); PLATELET COUNT 341 10^3/uL (134-434); RBC 4.21 M/mm3 (3.60-5.2); RDW 13.4 % (11.6-15.6); WHITE BLOOD COUNT 8.7 K/mm3 (4.0-10.0)
[2022-06-20 12:08] LABS: BLOOD UREA NITROGEN 20.7 mg/dL (7-18); CALCIUM 9.8 mg/dL (8.5-10.1)
[2022-06-20 12:09] LABS: MAGNESIUM 2.2 mg/dL (1.8-2.4)
[2022-06-20 12:11] LABS: BILIRUBIN,DIRECT 0.1 mg/dL (0.0-0.2); CREATININE 1.1 mg/dL (0.55-1.3)
[2022-06-20 12:13] LABS: BILIRUBIN,TOTAL 0.4 mg/dL (0.2-1); TOT PROT 8.6 g/dl (6.4-8.2)
[2022-06-20] MEDS ORDERED: PORTA CATH FLUSH 10 ML IVPUSH PRN (12:19)
[2022-06-20 15:14] VITALS: RESP 18; TEMP 98.2
[2022-06-20 15:16] VITALS: BP 147/70; PULSE 63
== END 2022-06-20 13:40 | disposition home or self-care (01) ==
LOC: JONCCHEMO 11:13
PROVIDERS: ATTEND Internal Medicine Hematology & Oncology
DX: Z51.11 Encounter for antineoplastic chemotherapy (principal); C7A.1 Malignant poorly differentiated neuroendocrine tumors
CPT/HCPCS: 36415; 80048; 80076; 82150; 82378; 82533; 83690; 83735; 84439; 84443; 85025; 96413; J9271

== ENCOUNTER 2022-07-11 11:21 | Day surgery (SDC) | payer OTHER ==
[2022-07-11 12:00] LABS: BASO % 0.9 % (0-2.0); EOS % 10.1 % (0-4.5); HEMATOCRIT 38.6 % (32.4-45.2); HEMOGLOBIN 13.1 GM/dL (10.7-15.3); LYMPH % 30.4 % (8-40); MCH 30.8 pg (25.7-33.7); MCHC 33.8 g/dl (32.0-36.0); MEAN PLT VOLUME 7.3 fl (7.5-11.1); MONO % 7.5 % (3.8-10.2); NEUT % 51.1 % (42.8-82.8); PLATELET COUNT 328 10^3/uL (134-434); RBC 4.24 M/mm3 (3.60-5.2); RDW 13.2 % (11.6-15.6)
[2022-07-11 12:26] LABS: CALCIUM 9.8 mg/dL (8.5-10.1)
[2022-07-11 12:27] LABS: ALBUMIN 3.9 g/dl (3.4-5.0); BLOOD UREA NITROGEN 24.3 mg/dL (7-18)
[2022-07-11 12:29] LABS: BILIRUBIN,DIRECT 0.1 mg/dL (0.0-0.2); CREATININE 1.1 mg/dL (0.55-1.3)
[2022-07-11 12:31] LABS: BILIRUBIN,TOTAL 0.4 mg/dL (0.2-1); TOT PROT 8.3 g/dl (6.4-8.2)
[2022-07-11 16:05] VITALS: RESP 20; TEMP 98
[2022-07-11 16:15] VITALS: BP 141/68; PULSE 66
[2022-07-11] MEDS ORDERED: PORTA CATH FLUSH 10 ML IVPUSH PRN (16:15)
== END 2022-07-11 15:00 | disposition home or self-care (01) ==
LOC: JONCCHEMO 11:21
PROVIDERS: ATTEND Internal Medicine Hematology & Oncology
DX: Z51.11 Encounter for antineoplastic chemotherapy (principal); C7A.1 Malignant poorly differentiated neuroendocrine tumors; C78.00 Secondary malignant neoplasm of unspecified lung
CPT/HCPCS: 36415; 80048; 80076; 82150; 82378; 82533; 83690; 83735; 84439; 84443; 85025; 96413; J9271

== ENCOUNTER 2022-08-01 10:34 | Day surgery (SDC) | payer OTHER ==
[2022-08-01] MEDS: PORTA CATH FLUSH 10 ML IVPUSH PRN ×2 (11:20→14:05)
[2022-08-01] MEDS ORDERED: PEMBROLIZUMAB 200 MG in SODIUM CHLORIDE 100 ML IV ONE (11:30)
[2022-08-01 12:26] LABS: BASO % 0.9 % (0-2.0); EOS % 11.5 % (0-4.5); HEMATOCRIT 36.6 % (32.4-45.2); HEMOGLOBIN 12.7 GM/dL (10.7-15.3); LYMPH % 26.4 % (8-40); MCH 31.2 pg (25.7-33.7); MCHC 34.8 g/dl (32.0-36.0); MEAN CELL VOLUME 89.6 fl (80-96); MEAN PLT VOLUME 7.3 fl (7.5-11.1); MONO % 7.1 % (3.8-10.2); NEUT % 54.1 % (42.8-82.8); PLATELET COUNT 345 10^3/uL (134-434); RBC 4.08 M/mm3 (3.60-5.2); RDW 12.9 % (11.6-15.6); WHITE BLOOD COUNT 7.7 K/mm3 (4.0-10.0)
[2022-08-01 12:46] LABS: CALCIUM 9.7 mg/dL (8.5-10.1)
[2022-08-01 12:47] LABS: ALBUMIN 3.6 g/dl (3.4-5.0)
[2022-08-01 12:49] LABS: BILIRUBIN,DIRECT 0.1 mg/dL (0.0-0.2)
[2022-08-01 12:51] LABS: TOT PROT 7.9 g/dl (6.4-8.2)
[2022-08-01 12:53] LABS: BILIRUBIN,TOTAL 0.4 mg/dL (0.2-1)
[2022-08-01 14:40] VITALS: PULSE 68; TEMP 98
[2022-08-01 14:42] VITALS: BP 147/68; RESP 18
== END 2022-08-01 14:05 | disposition home or self-care (01) ==
LOC: JONCCHEMO 10:34
PROVIDERS: ATTEND Internal Medicine Hematology & Oncology
DX: Z51.11 Encounter for antineoplastic chemotherapy (principal); C7A.1 Malignant poorly differentiated neuroendocrine tumors; C78.00 Secondary malignant neoplasm of unspecified lung
CPT/HCPCS: 36415; 80048; 80076; 82150; 82378; 82533; 83690; 83735; 84439; 84443; 85025; 96413; J9271

== ENCOUNTER 2022-08-22 11:39 | Day surgery (SDC) | payer OTHER ==
[2022-08-22 12:25] LABS: EOS % 9.6 % (0-4.5); HEMOGLOBIN 12.8 GM/dL (10.7-15.3); LYMPH % 30.7 % (8-40); MCH 29.6 pg (25.7-33.7); MCHC 33.7 g/dl (32.0-36.0); MEAN CELL VOLUME 87.8 fl (80-96); MEAN PLT VOLUME 7.3 fl (7.5-11.1); MONO % 8.8 % (3.8-10.2); NEUT % 49.9 % (42.8-82.8); PLATELET COUNT 307 10^3/uL (134-434); RBC 4.33 M/mm3 (3.60-5.2); RDW 13.2 % (11.6-15.6); WHITE BLOOD COUNT 10.2 K/mm3 (4.0-10.0)
[2022-08-22 12:50] LABS: BLOOD UREA NITROGEN 18.6 mg/dL (7-18)
[2022-08-22 12:51] LABS: ALBUMIN 3.6 g/dl (3.4-5.0); CALCIUM 9.5 mg/dL (8.5-10.1); MAGNESIUM 2.1 mg/dL (1.8-2.4)
[2022-08-22 12:53] LABS: BILIRUBIN,DIRECT 0.1 mg/dL (0.0-0.2); CREATININE 0.9 mg/dL (0.55-1.3)
[2022-08-22 12:55] LABS: TOT PROT 8.4 g/dl (6.4-8.2)
[2022-08-22 12:57] LABS: BILIRUBIN,TOTAL 0.4 mg/dL (0.2-1)
[2022-08-22 14:03] VITALS: BP 135/68; PULSE 66; RESP 18; TEMP 98.6
[2022-08-22] MEDS ORDERED: PORTA CATH FLUSH 10 ML IVPUSH PRN (14:11)
== END 2022-08-22 14:55 | disposition home or self-care (01) ==
LOC: JONCCHEMO 11:39
PROVIDERS: ATTEND Internal Medicine Hematology & Oncology
DX: Z51.11 Encounter for antineoplastic chemotherapy (principal); C7A.1 Malignant poorly differentiated neuroendocrine tumors; C78.00 Secondary malignant neoplasm of unspecified lung
CPT/HCPCS: 36415; 80048; 80076; 82150; 82306; 82378; 82533; 83690; 83735; 84439; 84443; 85025; 96413; J9271

== ENCOUNTER 2022-09-12 10:52 | Day surgery (SDC) | payer OTHER ==
[2022-09-12 11:35] LABS: BASO % 0.8 % (0-2.0); EOS % 10.2 % (0-4.5); HEMATOCRIT 35.7 % (32.4-45.2); HEMOGLOBIN 12.4 GM/dL (10.7-15.3); LYMPH % 29.4 % (8-40); MCH 30.2 pg (25.7-33.7); MCHC 34.7 g/dl (32.0-36.0); MEAN PLT VOLUME 7.1 fl (7.5-11.1); MONO % 8.3 % (3.8-10.2); NEUT % 51.3 % (42.8-82.8); PLATELET COUNT 385 10^3/uL (134-434); WHITE BLOOD COUNT 7.9 K/mm3 (4.0-10.0)
[2022-09-12 11:43] LABS: INR 1.08 (0.83-1.09); PROTHROMBIN TIME (PATIENT) 12.5 SEC (9.7-13.0)
[2022-09-12 11:46] LABS: ACTIVATED PTT 37.6 SECONDS (25.2-36.5)
[2022-09-12 11:57] LABS: ALBUMIN 3.6 g/dl (3.4-5.0); BLOOD UREA NITROGEN 20.8 mg/dL (7-18); CALCIUM 9.9 mg/dL (8.5-10.1); MAGNESIUM 2.2 mg/dL (1.8-2.4)
[2022-09-12 11:59] LABS: BILIRUBIN,DIRECT 0.1 mg/dL (0.0-0.2)
[2022-09-12 12:00] LABS: CREATININE 1.1 mg/dL (0.55-1.3)
[2022-09-12 12:01] LABS: TOT PROT 8.3 g/dl (6.4-8.2)
[2022-09-12 12:02] LABS: BILIRUBIN,TOTAL 0.3 mg/dL (0.2-1)
[2022-09-12 16:03] VITALS: BP 130/59; PULSE 61; RESP 20; TEMP 98
[2022-09-12] MEDS ORDERED: PORTA CATH FLUSH 10 ML IVPUSH PRN (16:03)
== END 2022-09-12 14:30 | disposition home or self-care (01) ==
LOC: JONCCHEMO 10:52
PROVIDERS: ATTEND Internal Medicine Hematology & Oncology
DX: Z51.11 Encounter for antineoplastic chemotherapy (principal); C7A.1 Malignant poorly differentiated neuroendocrine tumors; C78.00 Secondary malignant neoplasm of unspecified lung
CPT/HCPCS: 36415; 80048; 80076; 82150; 82378; 82533; 83690; 83735; 84439; 84443; 85025; 85610; 85730; 96413; J9271

== ENCOUNTER 2022-10-03 10:19 | Day surgery (SDC) | payer OTHER ==
[2022-10-03 11:22] LABS: EOS % 9.8 % (0-4.5); HEMATOCRIT 34.6 % (32.4-45.2); LYMPH % 26.2 % (8-40); MCH 30.1 pg (25.7-33.7); MCHC 34.6 g/dl (32.0-36.0); MEAN PLT VOLUME 7.4 fl (7.5-11.1); MONO % 7.1 % (3.8-10.2); NEUT % 55.9 % (42.8-82.8); PLATELET COUNT 372 10^3/uL (134-434); RBC 3.98 M/mm3 (3.60-5.2); RDW 12.8 % (11.6-15.6); WHITE BLOOD COUNT 7.8 K/mm3 (4.0-10.0)
[2022-10-03 12:16] LABS: BLOOD UREA NITROGEN 22.4 mg/dL (7-18)
[2022-10-03 12:17] LABS: ALBUMIN 3.7 g/dl (3.4-5.0)
[2022-10-03 12:19] LABS: BILIRUBIN,DIRECT 0.1 mg/dL (0.0-0.2)
[2022-10-03 12:20] LABS: BILIRUBIN,TOTAL 0.4 mg/dL (0.2-1)
[2022-10-03 12:21] LABS: TOT PROT 8.3 g/dl (6.4-8.2)
[2022-10-03 13:12] VITALS: PULSE 66; TEMP 98.1
[2022-10-03] MEDS ORDERED: PORTA CATH FLUSH 10 ML IVPUSH PRN (14:07)
[2022-10-03 14:08] VITALS: BP 148/68; RESP 20
== END 2022-10-03 14:00 | disposition home or self-care (01) ==
LOC: JONCCHEMO 10:19
PROVIDERS: ATTEND Internal Medicine Hematology & Oncology
DX: Z51.11 Encounter for antineoplastic chemotherapy (principal); C7A.1 Malignant poorly differentiated neuroendocrine tumors; C78.00 Secondary malignant neoplasm of unspecified lung; C78.7 Secondary malignant neoplasm of liver and intrahepatic bile duct
CPT/HCPCS: 36415; 80048; 80076; 82150; 82533; 83690; 83735; 84439; 84443; 85025; 96413; J9271

== ENCOUNTER 2022-10-24 11:10 | Day surgery (SDC) | payer OTHER ==
[2022-10-24 11:47] LABS: BASO % 0.5 % (0-2.0); EOS % 10.7 % (0-4.5); HEMATOCRIT 35.2 % (32.4-45.2); HEMOGLOBIN 12.2 GM/dL (10.7-15.3); LYMPH % 24.3 % (8-40); MCH 29.7 pg (25.7-33.7); MCHC 34.6 g/dl (32.0-36.0); MEAN CELL VOLUME 85.8 fl (80-96); MEAN PLT VOLUME 7.2 fl (7.5-11.1); MONO % 6.9 % (3.8-10.2); NEUT % 57.6 % (42.8-82.8); PLATELET COUNT 374 10^3/uL (134-434); RDW 12.5 % (11.6-15.6); WHITE BLOOD COUNT 8.3 K/mm3 (4.0-10.0)
[2022-10-24 12:12] LABS: POTASSIUM 4.5 mmol/L (3.5-5.1)
[2022-10-24 12:14] LABS: BLOOD UREA NITROGEN 18.1 mg/dL (7-18); CALCIUM 9.8 mg/dL (8.5-10.1)
[2022-10-24 12:15] LABS: ALBUMIN 3.6 g/dl (3.4-5.0)
[2022-10-24 12:17] LABS: BILIRUBIN,DIRECT 0.1 mg/dL (0.0-0.2)
[2022-10-24 12:19] LABS: BILIRUBIN,TOTAL 0.4 mg/dL (0.2-1); TOT PROT 8.4 g/dl (6.4-8.2)
[2022-10-24 15:36] VITALS: BP 151/77; PULSE 69; RESP 20; TEMP 98
[2022-10-24] MEDS ORDERED: PORTA CATH FLUSH 10 ML IVPUSH PRN (15:37)
== END 2022-10-24 13:30 | disposition home or self-care (01) ==
LOC: JONCCHEMO 11:10 → J7W 11:14 → JONCCHEMO 13:30
PROVIDERS: ATTEND Internal Medicine Hematology & Oncology
DX: Z51.11 Encounter for antineoplastic chemotherapy (principal); C80.1 Malignant (primary) neoplasm, unspecified; C78.7 Secondary malignant neoplasm of liver and intrahepatic bile duct
CPT/HCPCS: 36415; 80048; 80076; 82150; 82378; 82533; 83690; 83735; 84439; 84443; 85025; 86304; 96372; J9271

== ENCOUNTER 2022-11-14 10:29 | Day surgery (SDC) | payer OTHER ==
[~2022-11-14 10:29] MED LIST changes: -PEMBROLIZUMAB 200 MG in SODIUM CHLORIDE 100 ML IV ONE
[2022-11-14] MEDS ORDERED: PEMBROLIZUMAB 200 MG in SODIUM CHLORIDE 100 ML IV ONE (10:30)
[2022-11-14 11:38] LABS: HEMATOCRIT 35.1 % (32.4-45.2); HEMOGLOBIN 11.5 GM/dL (10.7-15.3); LYMPH % 21.6 % (8-40); MCH 28.3 pg (25.7-33.7); MCHC 32.8 g/dl (32.0-36.0); MEAN CELL VOLUME 86.4 fl (80-96); MEAN PLT VOLUME 7.4 fl (7.5-11.1); MONO % 7.4 % (3.8-10.2); NEUT % 60.9 % (42.8-82.8); PLATELET COUNT 422 10^3/uL (134-434); RBC 4.06 M/mm3 (3.60-5.2); RDW 12.9 % (11.6-15.6); WHITE BLOOD COUNT 10.6 K/mm3 (4.0-10.0)
[2022-11-14 11:39] LABS: BASO % 0.5 % (0-2.0); EOS % 9.6 % (0-4.5)
[2022-11-14 12:06] LABS: POTASSIUM 4.8 mmol/L (3.5-5.1)
[2022-11-14 12:09] LABS: ALBUMIN 3.6 g/dl (3.4-5.0); BLOOD UREA NITROGEN 18.1 mg/dL (7-18); CALCIUM 9.6 mg/dL (8.5-10.1)
[2022-11-14 12:11] LABS: BILIRUBIN,DIRECT 0.1 mg/dL (0.0-0.2)
[2022-11-14 12:12] LABS: CREATININE 1.1 mg/dL (0.55-1.3)
[2022-11-14 12:13] LABS: TOT PROT 8.4 g/dl (6.4-8.2)
[2022-11-14 12:14] LABS: BILIRUBIN,TOTAL 0.4 mg/dL (0.2-1)
[2022-11-14 17:11] VITALS: BP 138/71; PULSE 70; RESP 18; TEMP 98.5
[2022-11-14] MEDS ORDERED: PORTA CATH FLUSH 10 ML IVPUSH PRN (17:13)
== END 2022-11-14 13:30 | disposition home or self-care (01) ==
LOC: JONCCHEMO 10:29 → J7W 10:32 → JONCCHEMO 13:30
PROVIDERS: ATTEND Internal Medicine Hematology & Oncology
DX: Z51.11 Encounter for antineoplastic chemotherapy (principal); C80.1 Malignant (primary) neoplasm, unspecified; C78.7 Secondary malignant neoplasm of liver and intrahepatic bile duct
CPT/HCPCS: 36415; 80048; 80076; 82150; 82378; 82533; 83690; 83735; 84439; 84443; 85025; 86304; 96413; J9271

== ENCOUNTER 2022-12-05 10:31 | Day surgery (SDC) | payer OTHER ==
[~2022-12-05 10:31] MED LIST changes: +PEMBROLIZUMAB 200 MG in SODIUM CHLORIDE 100 ML IV ONE
[2022-12-05 10:50] LABS: EOS % 9.6 % (0-4.5); HEMATOCRIT 32.4 % (32.4-45.2); HEMOGLOBIN 10.9 GM/dL (10.7-15.3); LYMPH % 22.8 % (8-40); MCH 28.8 pg (25.7-33.7); MCHC 33.6 g/dl (32.0-36.0); MEAN CELL VOLUME 85.8 fl (80-96); MEAN PLT VOLUME 6.9 fl (7.5-11.1); MONO % 7.5 % (3.8-10.2); NEUT % 59.1 % (42.8-82.8); PLATELET COUNT 394 10^3/uL (134-434); RBC 3.78 M/mm3 (3.60-5.2); RDW 13.3 % (11.6-15.6); WHITE BLOOD COUNT 8.5 K/mm3 (4.0-10.0)
[2022-12-05 11:12] LABS: POTASSIUM 4.3 mmol/L (3.5-5.1)
[2022-12-05 11:14] LABS: CALCIUM 9.6 mg/dL (8.5-10.1)
[2022-12-05 11:15] LABS: ALBUMIN 3.5 g/dl (3.4-5.0); BLOOD UREA NITROGEN 20.2 mg/dL (7-18); MAGNESIUM 1.9 mg/dL (1.8-2.4)
[2022-12-05 11:17] LABS: BILIRUBIN,DIRECT 0.1 mg/dL (0.0-0.2); CREATININE 1.1 mg/dL (0.55-1.3)
[2022-12-05 11:19] LABS: BILIRUBIN,TOTAL 0.3 mg/dL (0.2-1); TOT PROT 8.3 g/dl (6.4-8.2)
[2022-12-05] MEDS ORDERED: INSULIN (NOVOLOG) ASPART 100 UNITS/ML 10ML VIAL SQ ONE (12:00)
[2022-12-05 16:16] VITALS: BP 130/58; PULSE 62; RESP 20; TEMP 98
[2022-12-05] MEDS ORDERED: PORTA CATH FLUSH 10 ML IVPUSH PRN (16:16)
== END 2022-12-05 13:00 | disposition home or self-care (01) ==
LOC: JONCCHEMO 10:31 → J7W 10:32 → JONCCHEMO 13:00
PROVIDERS: ATTEND Internal Medicine Hematology & Oncology
DX: Z51.11 Encounter for antineoplastic chemotherapy (principal); C80.1 Malignant (primary) neoplasm, unspecified; C78.7 Secondary malignant neoplasm of liver and intrahepatic bile duct
CPT/HCPCS: 36415; 80048; 80076; 82150; 82378; 82533; 83690; 83735; 84439; 84443; 85025; 96413; J9271

== ENCOUNTER 2023-01-16 10:51 | Day surgery (SDC) | payer OTHER ==
[2023-01-16 11:42] LABS: BASO % 0.7 % (0-2.0); EOS % 9.3 % (0-4.5); HEMOGLOBIN 10.4 GM/dL (10.7-15.3); LYMPH % 20.9 % (8-40); MCH 27.1 pg (25.7-33.7); MCHC 33.5 g/dl (32.0-36.0); MEAN PLT VOLUME 6.6 fl (7.5-11.1); NEUT % 63.1 % (42.8-82.8); PLATELET COUNT 479 10^3/uL (134-434); RBC 3.83 M/mm3 (3.60-5.2); RDW 14.4 % (11.6-15.6); WHITE BLOOD COUNT 8.4 K/mm3 (4.0-10.0)
[2023-01-16 12:45] LABS: POTASSIUM 4.5 mmol/L (3.5-5.1)
[2023-01-16 12:48] LABS: CALCIUM 9.4 mg/dL (8.5-10.1)
[2023-01-16 12:49] LABS: ALBUMIN 3.3 g/dl (3.4-5.0); BLOOD UREA NITROGEN 15.3 mg/dL (7-18)
[2023-01-16 12:51] LABS: BILIRUBIN,DIRECT 0.1 mg/dL (0.0-0.2); CREATININE 1.2 mg/dL (0.55-1.3)
[2023-01-16 12:53] LABS: BILIRUBIN,TOTAL 0.3 mg/dL (0.2-1); TOT PROT 8.2 g/dl (6.4-8.2)
[2023-01-16 17:00] VITALS: TEMP 98
[2023-01-16 17:08] VITALS: BP 145/76; PULSE 74; RESP 18
[2023-01-16] MEDS ORDERED: PORTA CATH FLUSH 10 ML IVPUSH PRN (17:08)
[2023-01-17 23:08] LABS: CARCINOEMBRYONIC ANTIGEN 1.7 ng/mL (0.0-4.7)
== END 2023-01-16 14:30 | disposition home or self-care (01) ==
LOC: JONCCHEMO 10:51 → J7W 11:00 → JONCCHEMO 14:30
PROVIDERS: ATTEND Internal Medicine Hematology & Oncology
DX: Z51.11 Encounter for antineoplastic chemotherapy (principal); C34.90 Malignant neoplasm of unspecified part of unspecified bronchus or lung; C78.7 Secondary malignant neoplasm of liver and intrahepatic bile duct
CPT/HCPCS: 36415; 80048; 80076; 82150; 82378; 82530; 82533; 83690; 83735; 84439; 84443; 85025; 96368; 96413; J9271

== ENCOUNTER 2023-02-06 10:47 | Day surgery (SDC) | payer OTHER ==
[2023-02-06 11:05] LABS: BASO % 0.7 % (0-2.0); EOS % 8.9 % (0-4.5); HEMATOCRIT 30.6 % (32.4-45.2); HEMOGLOBIN 10.3 GM/dL (10.7-15.3); LYMPH % 19.1 % (8-40); MCH 26.8 pg (25.7-33.7); MCHC 33.6 g/dl (32.0-36.0); MEAN CELL VOLUME 79.7 fl (80-96); MEAN PLT VOLUME 6.2 fl (7.5-11.1); MONO % 7.2 % (3.8-10.2); NEUT % 64.1 % (42.8-82.8); PLATELET COUNT 537 10^3/uL (134-434); RBC 3.84 M/mm3 (3.60-5.2); RDW 14.8 % (11.6-15.6); WHITE BLOOD COUNT 9.7 K/mm3 (4.0-10.0)
[2023-02-06 11:29] LABS: POTASSIUM 4.8 mmol/L (3.5-5.1)
[2023-02-06 11:31] LABS: CALCIUM 9.5 mg/dL (8.5-10.1)
[2023-02-06 11:32] LABS: ALBUMIN 3.3 g/dl (3.4-5.0); BLOOD UREA NITROGEN 13.5 mg/dL (7-18); MAGNESIUM 1.9 mg/dL (1.8-2.4)
[2023-02-06 11:34] LABS: BILIRUBIN,DIRECT 0.2 mg/dL (0.0-0.2); CREATININE 1.2 mg/dL (0.55-1.3)
[2023-02-06 11:36] LABS: BILIRUBIN,TOTAL 0.4 mg/dL (0.2-1); TOT PROT 8.6 g/dl (6.4-8.2)
[2023-02-06 16:02] VITALS: BP 134/97; PULSE 67; RESP 20; TEMP 98.9
[2023-02-06] MEDS ORDERED: PORTA CATH FLUSH 10 ML IVPUSH PRN (16:02)
== END 2023-02-06 13:50 | disposition home or self-care (01) ==
LOC: JONCCHEMO 10:47 → J7W 10:50 → JONCCHEMO 13:50
PROVIDERS: ATTEND Internal Medicine Hematology & Oncology
DX: Z51.11 Encounter for antineoplastic chemotherapy (principal); C34.90 Malignant neoplasm of unspecified part of unspecified bronchus or lung; C78.7 Secondary malignant neoplasm of liver and intrahepatic bile duct
CPT/HCPCS: 36415; 80053; 80076; 82150; 82378; 82533; 83690; 83735; 84439; 84443; 85025; 96413; J9271

== ENCOUNTER 2023-03-20 10:38 | Day surgery (SDC) | payer OTHER ==
[2023-03-20 11:11] LABS: EOS % 6.1 % (0-4.5); HEMATOCRIT 29.6 % (32.4-45.2); HEMOGLOBIN 9.8 GM/dL (10.7-15.3); LYMPH % 18.2 % (8-40); MCH 25.7 pg (25.7-33.7); MEAN CELL VOLUME 77.8 fl (80-96); MEAN PLT VOLUME 6.5 fl (7.5-11.1); MONO % 7.6 % (3.8-10.2); NEUT % 67.1 % (42.8-82.8); PLATELET COUNT 583 10^3/uL (134-434); WHITE BLOOD COUNT 9.4 K/mm3 (4.0-10.0)
[2023-03-20] MEDS ORDERED: MINERAL OIL/PET HY-PHL TOPICAL OINTMENT 454 GM JAR TP SCH (11:45)
[2023-03-20 11:56] LABS: POTASSIUM 4.2 mmol/L (3.5-5.1)
[2023-03-20 12:00] LABS: BLOOD UREA NITROGEN 13.7 mg/dL (7-18)
[2023-03-20 12:01] LABS: BILIRUBIN,DIRECT 0.2 mg/dL (0.0-0.2)
[2023-03-20 12:03] LABS: CREATININE 1.1 mg/dL (0.55-1.3); TOT PROT 8.4 g/dl (6.4-8.2)
[2023-03-20 12:04] LABS: BILIRUBIN,TOTAL 0.5 mg/dL (0.2-1)
[2023-03-20 15:49] VITALS: TEMP 98.5
[2023-03-20 15:56] VITALS: BP 155/77; PULSE 70; RESP 20
[2023-03-20] MEDS ORDERED: PORTA CATH FLUSH 10 ML IVPUSH PRN (15:56)
== END 2023-03-20 14:00 | disposition home or self-care (01) ==
LOC: J7W 10:38 → JONCCHEMO 10:38
PROVIDERS: ATTEND Internal Medicine Hematology & Oncology
DX: Z51.11 Encounter for antineoplastic chemotherapy (principal); C7A.8 Other malignant neuroendocrine tumors; C78.00 Secondary malignant neoplasm of unspecified lung; C78.7 Secondary malignant neoplasm of liver and intrahepatic bile duct
CPT/HCPCS: 36415; 80048; 80076; 82150; 82378; 82533; 83690; 83735; 84439; 84443; 85025; 96413; J9271

== ENCOUNTER 2023-05-08 11:55 | Day surgery (SDC) | payer OTHER ==
[2023-05-08 12:28] LABS: BASO % 1.4 % (0-2.0); EOS % 9.7 % (0-4.5); HEMOGLOBIN 11.7 GM/dL (10.7-15.3); LYMPH % 33.3 % (8-40); MCH 27.1 pg (25.7-33.7); MCHC 32.6 g/dl (32.0-36.0); MEAN CELL VOLUME 83.1 fl (80-96); MEAN PLT VOLUME 7.4 fl (7.5-11.1); MONO % 7.4 % (3.8-10.2); NEUT % 48.2 % (42.8-82.8); PLATELET COUNT 343 10^3/uL (134-434); RBC 4.34 M/mm3 (3.60-5.2); WHITE BLOOD COUNT 6.7 K/mm3 (4.0-10.0)
[2023-05-08 12:47] LABS: CALCIUM 9.6 mg/dL (8.5-10.1)
[2023-05-08 12:48] LABS: MAGNESIUM 2.1 mg/dL (1.8-2.4)
[2023-05-08 12:50] LABS: BILIRUBIN,DIRECT 0.1 mg/dL (0.0-0.2); CREATININE 1.2 mg/dL (0.55-1.3)
[2023-05-08 12:52] LABS: BILIRUBIN,TOTAL 0.3 mg/dL (0.2-1); TOT PROT 8.6 g/dl (6.4-8.2)
[2023-05-08 14:20] LABS: ANISOCYTOSIS 2+; MACROCYTOSIS 0
[2023-05-08] MEDS ORDERED: PORTA CATH FLUSH 10 ML IVPUSH PRN (14:56)
[2023-05-08 14:57] VITALS: BP 145/74; PULSE 74; RESP 18; TEMP 98.1
== END 2023-05-08 14:30 | disposition home or self-care (01) ==
LOC: JONCCHEMO 11:55 → J7W 11:56 → JONCCHEMO 14:30
PROVIDERS: ATTEND Internal Medicine Hematology & Oncology
DX: Z51.11 Encounter for antineoplastic chemotherapy (principal); C7A.8 Other malignant neuroendocrine tumors; C78.00 Secondary malignant neoplasm of unspecified lung
CPT/HCPCS: 36415; 71046-TC-FY; 80048; 80076; 82150; 82378; 82533; 83690; 83735; 84439; 84443; 85025; 96413; J9271

== ENCOUNTER 2023-05-29 11:09 | Day surgery (SDC) | payer OTHER ==
[2023-05-29 11:58] LABS: HEMATOCRIT 38.3 % (32.4-45.2); HEMOGLOBIN 12.3 GM/dL (10.7-15.3); LYMPH % 28.9 % (8-40); MCH 27.6 pg (25.7-33.7); MEAN CELL VOLUME 86.2 fl (80-96); MEAN PLT VOLUME 7.7 fl (7.5-11.1); MONO % 5.6 % (3.8-10.2); NEUT % 54.5 % (42.8-82.8); PLATELET COUNT 314 10^3/uL (134-434); RBC 4.45 M/mm3 (3.60-5.2); RDW 19.5 % (11.6-15.6); WHITE BLOOD COUNT 7.8 K/mm3 (4.0-10.0)
[2023-05-29 12:15] LABS: POTASSIUM 4.4 mmol/L (3.5-5.1)
[2023-05-29 12:19] LABS: CALCIUM 10.2 mg/dL (8.5-10.1)
[2023-05-29 12:20] LABS: ALBUMIN 3.9 g/dl (3.4-5.0); BLOOD UREA NITROGEN 20.4 mg/dL (7-18); MAGNESIUM 2.1 mg/dL (1.8-2.4)
[2023-05-29 12:22] LABS: BILIRUBIN,DIRECT 0.1 mg/dL (0.0-0.2); CREATININE 1.1 mg/dL (0.55-1.3)
[2023-05-29 12:24] LABS: TOT PROT 8.3 g/dl (6.4-8.2)
[2023-05-29 12:31] LABS: BILIRUBIN,TOTAL 0.2 mg/dL (0.2-1)
[2023-05-29 18:53] VITALS: BP 130/61; PULSE 67; RESP 20; TEMP 98
[2023-05-29] MEDS ORDERED: PORTA CATH FLUSH 10 ML IVPUSH PRN (18:53)
== END 2023-05-29 14:50 | disposition home or self-care (01) ==
LOC: JONCCHEMO 11:09 → J7W 11:18 → JONCCHEMO 14:50
PROVIDERS: ATTEND Internal Medicine Hematology & Oncology
DX: Z51.11 Encounter for antineoplastic chemotherapy (principal); C7A.8 Other malignant neuroendocrine tumors; C78.00 Secondary malignant neoplasm of unspecified lung
CPT/HCPCS: 36415; 80048; 80076; 82150; 82378; 82533; 83690; 83735; 84439; 84443; 85025; 86304; 96413; J9271

== ENCOUNTER 2023-06-19 11:07 | Day surgery (SDC) | payer OTHER ==
[2023-06-19 11:42] LABS: EOS % 13.9 % (0-4.5); HEMOGLOBIN 12.9 GM/dL (10.7-15.3); LYMPH % 29.1 % (8-40); MCH 28.2 pg (25.7-33.7); MEAN CELL VOLUME 85.6 fl (80-96); MEAN PLT VOLUME 7.3 fl (7.5-11.1); MONO % 5.6 % (3.8-10.2); NEUT % 50.4 % (42.8-82.8); PLATELET COUNT 320 10^3/uL (134-434); RBC 4.56 M/mm3 (3.60-5.2); RDW 17.6 % (11.6-15.6); WHITE BLOOD COUNT 8.2 K/mm3 (4.0-10.0)
[2023-06-19 13:27] LABS: POTASSIUM 4.2 mmol/L (3.5-5.1)
[2023-06-19 13:33] LABS: CALCIUM 9.8 mg/dL (8.5-10.1)
[2023-06-19 13:34] LABS: BLOOD UREA NITROGEN 17.4 mg/dL (7-18); MAGNESIUM 1.9 mg/dL (1.8-2.4)
[2023-06-19 13:37] LABS: BILIRUBIN,DIRECT 0.1 mg/dL (0.0-0.2); CREATININE 1.1 mg/dL (0.55-1.3)
[2023-06-19 13:38] LABS: BILIRUBIN,TOTAL 0.4 mg/dL (0.2-1); TOT PROT 8.7 g/dl (6.4-8.2)
[2023-06-19] MEDS ORDERED: PORTA CATH FLUSH 10 ML IVPUSH PRN (15:45)
[2023-06-19 16:07] VITALS: BP 167/67; PULSE 69; RESP 20; TEMP 8.2
== END 2023-06-19 14:20 | disposition home or self-care (01) ==
LOC: JONCCHEMO 11:07 → J7W 11:09 → JONCCHEMO 14:20
PROVIDERS: ATTEND Internal Medicine Hematology & Oncology
DX: Z51.11 Encounter for antineoplastic chemotherapy (principal); C7A.8 Other malignant neuroendocrine tumors; C78.00 Secondary malignant neoplasm of unspecified lung
CPT/HCPCS: 36415; 80048; 80076; 82150; 82378; 82533; 83690; 83735; 84439; 84443; 85025; 96413; J9271

== ENCOUNTER 2023-07-09 10:40 | Day surgery (SDC) | payer OTHER ==
[2023-07-09 11:49] LABS: BASO % 0.9 % (0-2.0); EOS % 12.6 % (0-4.5); HEMATOCRIT 40.7 % (32.4-45.2); HEMOGLOBIN 13.9 GM/dL (10.7-15.3); LYMPH % 35.4 % (8-40); MCH 29.2 pg (25.7-33.7); MCHC 34.2 g/dl (32.0-36.0); MEAN CELL VOLUME 85.4 fl (80-96); MEAN PLT VOLUME 7.4 fl (7.5-11.1); MONO % 6.4 % (3.8-10.2); NEUT % 44.7 % (42.8-82.8); PLATELET COUNT 328 10^3/uL (134-434); RBC 4.77 M/mm3 (3.60-5.2); RDW 15.8 % (11.6-15.6); WHITE BLOOD COUNT 7.1 K/mm3 (4.0-10.0)
[2023-07-09 12:05] LABS: POTASSIUM 4.5 mmol/L (3.5-5.1)
[2023-07-09 12:07] LABS: CALCIUM 9.8 mg/dL (8.5-10.1)
[2023-07-09 12:08] LABS: ALBUMIN 4.3 g/dl (3.4-5.0); BLOOD UREA NITROGEN 19.5 mg/dL (7-18); MAGNESIUM 2.2 mg/dL (1.8-2.4)
[2023-07-09 12:10] LABS: CREATININE 1.1 mg/dL (0.55-1.3)
[2023-07-09 12:11] LABS: BILIRUBIN,DIRECT 0.1 mg/dL (0.0-0.2)
[2023-07-09 12:12] LABS: BILIRUBIN,TOTAL 0.4 mg/dL (0.2-1); TOT PROT 8.6 g/dl (6.4-8.2)
[2023-07-09 17:33] VITALS: TEMP 98.3
[2023-07-09 17:40] VITALS: BP 136/64; PULSE 62; RESP 20
[2023-07-09] MEDS ORDERED: PORTA CATH FLUSH 10 ML IVPUSH PRN (17:40)
== END 2023-07-09 14:40 | disposition home or self-care (01) ==
LOC: JONCCHEMO 10:40 → J7W 10:43 → JONCCHEMO 14:40
PROVIDERS: ATTEND Internal Medicine Hematology & Oncology
DX: Z51.11 Encounter for antineoplastic chemotherapy (principal); C7A.8 Other malignant neuroendocrine tumors; C56.9 Malignant neoplasm of unspecified ovary; C78.7 Secondary malignant neoplasm of liver and intrahepatic bile duct; C77.9 Secondary and unspecified malignant neoplasm of lymph node, unspecified
CPT/HCPCS: 36415; 80048; 80076; 82150; 82378; 82533; 83690; 83735; 84439; 84443; 85025; 86304; 96413; J9271

== ENCOUNTER 2023-07-31 12:09 | Day surgery (SDC) | payer OTHER ==
[2023-07-31 11:53] LABS: BASO % 0.9 % (0-2.0); EOS % 12.1 % (0-4.5); HEMATOCRIT 40.2 % (32.4-45.2); HEMOGLOBIN 13.6 GM/dL (10.7-15.3); LYMPH % 33.3 % (8-40); MCHC 33.9 g/dl (32.0-36.0); MEAN CELL VOLUME 85.6 fl (80-96); MEAN PLT VOLUME 7.1 fl (7.5-11.1); MONO % 6.5 % (3.8-10.2); NEUT % 47.2 % (42.8-82.8); PLATELET COUNT 285 10^3/uL (134-434); RDW 14.4 % (11.6-15.6); WHITE BLOOD COUNT 6.6 K/mm3 (4.0-10.0)
[2023-07-31] MEDS: SODIUM CHLORIDE 250 ML IV ONE (12:02)
[2023-07-31 12:09] LABS: CHLORIDE 106 mmol/L (98-107); POTASSIUM 4.6 mmol/L (3.5-5.1); SODIUM 141 mmol/L (136-145)
[2023-07-31 12:12] LABS: GLUCOSE,RANDOM 109 mg/dL (74-106)
[2023-07-31 12:13] LABS: ALBUMIN 3.8 g/dl (3.4-5.0); ANION GAP 5 mmol/L (4-13); CALCIUM 9.8 mg/dL (8.5-10.1); CO2 30 mmol/L (21-32); MAGNESIUM 2.2 mg/dL (1.8-2.4)
[2023-07-31 12:14] LABS: AMYLASE 61 U/L (25-115)
[2023-07-31 12:15] LABS: BILIRUBIN,DIRECT < 0.1 mg/dL (0.0-0.2); CREATININE 0.9 mg/dL (0.55-1.3); SGOT/AST 13 U/L (15-37)
[2023-07-31 12:16] LABS: SGPT/ALT 23 U/L (13-61)
[2023-07-31 12:17] LABS: BILIRUBIN,TOTAL 0.3 mg/dL (0.2-1); TOT PROT 8.1 g/dl (6.4-8.2)
[2023-07-31 12:18] LABS: ALK PHOS 85 U/L (45-117)
[2023-07-31] MEDS: PEMBROLIZUMAB 200 MG in SODIUM CHLORIDE 100 ML IV ONE (12:56)
[2023-07-31] MEDS: PORTA CATH FLUSH 10 ML IVPUSH PRN (13:30)
[2023-07-31 16:59] VITALS: TEMP 98.1
[2023-07-31 17:03] VITALS: BP 129/69; PULSE 65; RESP 18
== END 2023-07-31 13:40 | disposition home or self-care (01) ==
LOC: J7W 12:09 → JONCCHEMO 12:09
PROVIDERS: ATTEND Internal Medicine Hematology & Oncology
DX: Z51.11 Encounter for antineoplastic chemotherapy (principal); C7A.8 Other malignant neuroendocrine tumors; C56.9 Malignant neoplasm of unspecified ovary; C78.7 Secondary malignant neoplasm of liver and intrahepatic bile duct; C77.9 Secondary and unspecified malignant neoplasm of lymph node, unspecified
CPT/HCPCS: 36415; 80048; 80076; 82150; 82378; 82533; 83690; 83735; 84439; 84443; 85025; 86304; 96413; J9271

== ENCOUNTER 2023-08-21 11:25 | Day surgery (SDC) | payer OTHER ==
[2023-08-21 11:50] LABS: BASO % 0.9 % (0-2.0); EOS % 15.6 % (0-4.5); HEMATOCRIT 39.1 % (32.4-45.2); LYMPH % 28.8 % (8-40); MCH 28.5 pg (25.7-33.7); MCHC 33.2 g/dl (32.0-36.0); MEAN CELL VOLUME 85.8 fl (80-96); MEAN PLT VOLUME 7.3 fl (7.5-11.1); MONO % 10.9 % (3.8-10.2); NEUT % 43.8 % (42.8-82.8); PLATELET COUNT 250 10^3/uL (134-434); RBC 4.55 M/mm3 (3.60-5.2); RDW 14.2 % (11.6-15.6); WHITE BLOOD COUNT 6.3 K/mm3 (4.0-10.0)
[2023-08-21] MEDS: SODIUM CHLORIDE 250 ML IV ONE (12:01)
[2023-08-21 12:02] LABS: POTASSIUM 4.3 mmol/L (3.5-5.1)
[2023-08-21 12:05] LABS: CALCIUM 9.4 mg/dL (8.5-10.1)
[2023-08-21 12:06] LABS: ALBUMIN 3.8 g/dl (3.4-5.0); BLOOD UREA NITROGEN 19.8 mg/dL (7-18); MAGNESIUM 2.1 mg/dL (1.8-2.4)
[2023-08-21 12:08] LABS: BILIRUBIN,DIRECT 0.1 mg/dL (0.0-0.2); CREATININE 1.1 mg/dL (0.55-1.3)
[2023-08-21 12:09] LABS: TOT PROT 8.1 g/dl (6.4-8.2)
[2023-08-21 12:10] LABS: BILIRUBIN,TOTAL 0.3 mg/dL (0.2-1)
[2023-08-21] MEDS: PEMBROLIZUMAB 200 MG in SODIUM CHLORIDE 100 ML IV ONE (13:21)
[2023-08-21] MEDS: PORTA CATH FLUSH 10 ML IVPUSH PRN (13:55)
[2023-08-21 14:17] VITALS: RESP 16; TEMP 98.1
[2023-08-21 14:24] VITALS: BP 177/77; PULSE 82
== END 2023-08-21 14:00 | disposition home or self-care (01) ==
LOC: JONCCHEMO 11:25 → J7W 11:27 → JONCCHEMO 14:00
PROVIDERS: ATTEND Internal Medicine Hematology & Oncology
DX: Z51.11 Encounter for antineoplastic chemotherapy (principal); C56.9 Malignant neoplasm of unspecified ovary; C78.7 Secondary malignant neoplasm of liver and intrahepatic bile duct; C77.9 Secondary and unspecified malignant neoplasm of lymph node, unspecified
CPT/HCPCS: 36415; 80048; 80076; 82150; 82378; 82533; 83690; 83735; 84439; 84443; 85025; 86304; 96413; J9271

== ENCOUNTER 2023-09-10 11:33 | Day surgery (SDC) | payer OTHER ==
[2023-09-10] MEDS: SODIUM CHLORIDE 250 ML IV ONE (12:00)
[2023-09-10 12:32] LABS: EOS % 12.1 % (0-4.5); HEMATOCRIT 39.7 % (32.4-45.2); HEMOGLOBIN 13.5 GM/dL (10.7-15.3); LYMPH % 35.2 % (8-40); MCH 29.3 pg (25.7-33.7); MCHC 34.2 g/dl (32.0-36.0); MEAN CELL VOLUME 85.7 fl (80-96); MEAN PLT VOLUME 7.8 fl (7.5-11.1); MONO % 6.5 % (3.8-10.2); NEUT % 45.2 % (42.8-82.8); PLATELET COUNT 312 10^3/uL (134-434); RBC 4.63 M/mm3 (3.60-5.2); RDW 14.3 % (11.6-15.6); WHITE BLOOD COUNT 7.6 K/mm3 (4.0-10.0)
[2023-09-10 12:45] LABS: MAGNESIUM 2.1 mg/dL (1.8-2.4)
[2023-09-10 12:46] LABS: BILIRUBIN,DIRECT 0.2 mg/dL (0.0-0.2); CREATININE 1.1 mg/dL (0.55-1.3)
[2023-09-10 12:48] LABS: BILIRUBIN,TOTAL 0.5 mg/dL (0.2-1); TOT PROT 8.3 g/dl (6.4-8.2)
[2023-09-10] MEDS: PEMBROLIZUMAB 200 MG in SODIUM CHLORIDE 100 ML IV ONE (13:42)
[2023-09-10] MEDS: PORTA CATH FLUSH 10 ML IVPUSH PRN (14:30)
[2023-09-10 17:32] VITALS: BP 161/62; PULSE 78; RESP 20; TEMP 98
[2023-09-11 08:10] LABS: CARCINOEMBRYONIC ANTIGEN 2.8 ng/mL (0.0-4.7)
== END 2023-09-10 14:30 | disposition home or self-care (01) ==
LOC: JONCCHEMO 11:33 → J7W 11:34 → JONCCHEMO 14:30
PROVIDERS: ATTEND Internal Medicine Hematology & Oncology
DX: Z51.11 Encounter for antineoplastic chemotherapy (principal); C56.9 Malignant neoplasm of unspecified ovary; C78.7 Secondary malignant neoplasm of liver and intrahepatic bile duct; C77.9 Secondary and unspecified malignant neoplasm of lymph node, unspecified
CPT/HCPCS: 36415; 80048; 80076; 82150; 82378; 82533; 83690; 83735; 84439; 84443; 85025; 86304; 96413; J9271

== ENCOUNTER 2023-10-02 10:52 | Day surgery (SDC) | payer OTHER ==
[2023-10-02] MEDS: SODIUM CHLORIDE 250 ML IV ONE (11:11)
[2023-10-02 11:19] LABS: BASO % 1.1 % (0-2.0); EOS % 13.3 % (0-4.5); HEMATOCRIT 39.6 % (32.4-45.2); HEMOGLOBIN 13.3 GM/dL (10.7-15.3); LYMPH % 30.7 % (8-40); MCH 29.4 pg (25.7-33.7); MCHC 33.6 g/dl (32.0-36.0); MEAN CELL VOLUME 87.6 fl (80-96); MEAN PLT VOLUME 7.3 fl (7.5-11.1); MONO % 6.2 % (3.8-10.2); NEUT % 48.7 % (42.8-82.8); PLATELET COUNT 299 10^3/uL (134-434); RBC 4.52 M/mm3 (3.60-5.2); RDW 14.5 % (11.6-15.6); WHITE BLOOD COUNT 7.8 K/mm3 (4.0-10.0)
[2023-10-02 11:38] LABS: POTASSIUM 4.4 mmol/L (3.5-5.1)
[2023-10-02 11:41] LABS: ALBUMIN 3.9 g/dl (3.4-5.0); BLOOD UREA NITROGEN 20.5 mg/dL (7-18); CALCIUM 9.7 mg/dL (8.5-10.1); MAGNESIUM 2.1 mg/dL (1.8-2.4)
[2023-10-02 11:43] LABS: BILIRUBIN,DIRECT 0.1 mg/dL (0.0-0.2)
[2023-10-02 11:44] LABS: CREATININE 1.1 mg/dL (0.55-1.3)
[2023-10-02 11:46] LABS: BILIRUBIN,TOTAL 0.5 mg/dL (0.2-1); TOT PROT 8.1 g/dl (6.4-8.2)
[2023-10-02] MEDS: PEMBROLIZUMAB 200 MG in SODIUM CHLORIDE 100 ML IV ONE (12:14)
[2023-10-02] MEDS: PORTA CATH FLUSH 10 ML IVPUSH PRN (12:35)
[2023-10-02 14:40] VITALS: RESP 20; TEMP 98.3
[2023-10-02 14:52] VITALS: BP 124/66; PULSE 60
[2023-10-03 13:11] LABS: CARCINOEMBRYONIC ANTIGEN 2.9 ng/mL (0.0-4.7)
== END 2023-10-02 14:05 | disposition home or self-care (01) ==
LOC: JONCCHEMO 10:52 → J7W 10:53 → JONCCHEMO 14:05
PROVIDERS: ATTEND Internal Medicine Hematology & Oncology
DX: Z51.11 Encounter for antineoplastic chemotherapy (principal); C34.90 Malignant neoplasm of unspecified part of unspecified bronchus or lung
CPT/HCPCS: 36415; 80048; 80076; 82150; 82378; 82533; 83690; 83735; 84439; 84443; 85025; 86304; 96413; J9271

== ENCOUNTER 2023-10-23 11:29 | Day surgery (SDC) | payer OTHER ==
[2023-10-23] MEDS: SODIUM CHLORIDE 250 ML IV ONE (11:48)
[2023-10-23 11:59] LABS: BASO % 1.1 % (0-2.0); HEMATOCRIT 39.1 % (32.4-45.2); HEMOGLOBIN 13.2 GM/dL (10.7-15.3); LYMPH % 30.2 % (8-40); MCH 29.8 pg (25.7-33.7); MCHC 33.7 g/dl (32.0-36.0); MEAN CELL VOLUME 88.3 fl (80-96); MEAN PLT VOLUME 7.4 fl (7.5-11.1); MONO % 5.4 % (3.8-10.2); NEUT % 49.3 % (42.8-82.8); PLATELET COUNT 299 10^3/uL (134-434); RBC 4.43 M/mm3 (3.60-5.2); RDW 14.5 % (11.6-15.6); WHITE BLOOD COUNT 7.9 K/mm3 (4.0-10.0)
[2023-10-23 12:10] LABS: CHLORIDE 104 mmol/L (98-107); POTASSIUM 4.1 mmol/L (3.5-5.1); SODIUM 137 mmol/L (136-145)
[2023-10-23 12:12] LABS: CALCIUM 9.9 mg/dL (8.5-10.1)
[2023-10-23 12:13] LABS: AMYLASE 70 U/L (25-115); ANION GAP 2 mmol/L (4-13); BLOOD UREA NITROGEN 17.7 mg/dL (7-18); CO2 30 mmol/L (21-32); GLUCOSE,RANDOM 83 mg/dL (74-106); MAGNESIUM 2.4 mg/dL (1.8-2.4)
[2023-10-23 12:15] LABS: BILIRUBIN,DIRECT 0.1 mg/dL (0.0-0.2); CREATININE 1.1 mg/dL (0.55-1.3); SGOT/AST 19 U/L (15-37)
[2023-10-23 12:16] LABS: SGPT/ALT 23 U/L (13-61)
[2023-10-23 12:17] LABS: BILIRUBIN,TOTAL 0.4 mg/dL (0.2-1); TOT PROT 8.2 g/dl (6.4-8.2)
[2023-10-23 12:18] LABS: ALK PHOS 91 U/L (45-117)
[2023-10-23] MEDS: PEMBROLIZUMAB 200 MG in SODIUM CHLORIDE 100 ML IV ONE (12:55)
[2023-10-23] MEDS: PORTA CATH FLUSH 10 ML IVPUSH PRN (13:35)
[2023-10-23 15:57] VITALS: BP 165/70; PULSE 60; RESP 20; TEMP 98.4
== END 2023-10-23 13:51 | disposition home or self-care (01) ==
LOC: JONCCHEMO 11:29 → J7W 11:29 → JONCCHEMO 13:51
PROVIDERS: ATTEND Internal Medicine Hematology & Oncology
DX: Z51.11 Encounter for antineoplastic chemotherapy (principal); C34.90 Malignant neoplasm of unspecified part of unspecified bronchus or lung
CPT/HCPCS: 36415; 80048; 80076; 82150; 82378; 82533; 83690; 83735; 84439; 84443; 85025; 86304; 96413; J9271

== ENCOUNTER 2023-11-13 10:18 | Day surgery (SDC) | payer OTHER ==
[2023-11-13] MEDS: SODIUM CHLORIDE 250 ML IV ONE (11:01)
[2023-11-13 11:15] LABS: BASO % 0.8 % (0-2.0); EOS % 11.4 % (0-4.5); HEMATOCRIT 40.9 % (32.4-45.2); HEMOGLOBIN 13.8 GM/dL (10.7-15.3); LYMPH % 30.2 % (8-40); MCH 29.7 pg (25.7-33.7); MCHC 33.7 g/dl (32.0-36.0); MEAN CELL VOLUME 88.4 fl (80-96); MEAN PLT VOLUME 7.5 fl (7.5-11.1); MONO % 6.2 % (3.8-10.2); NEUT % 51.4 % (42.8-82.8); PLATELET COUNT 317 10^3/uL (134-434); RBC 4.63 M/mm3 (3.60-5.2); RDW 14.9 % (11.6-15.6); WHITE BLOOD COUNT 7.8 K/mm3 (4.0-10.0)
[2023-11-13 11:33] LABS: CHLORIDE 104 mmol/L (98-107); POTASSIUM 4.3 mmol/L (3.5-5.1); SODIUM 138 mmol/L (136-145)
[2023-11-13 11:36] LABS: CALCIUM 9.6 mg/dL (8.5-10.1)
[2023-11-13 11:37] LABS: ALBUMIN 4.1 g/dl (3.4-5.0); AMYLASE 70 U/L (25-115); ANION GAP 9 mmol/L (4-13); BLOOD UREA NITROGEN 24.1 mg/dL (7-18); CO2 26 mmol/L (21-32); GLUCOSE,RANDOM 111 mg/dL (74-106); MAGNESIUM 2.3 mg/dL (1.8-2.4)
[2023-11-13 11:39] LABS: BILIRUBIN,DIRECT 0.2 mg/dL (0.0-0.2); CREATININE 1.2 mg/dL (0.55-1.3); SGOT/AST 18 U/L (15-37); SGPT/ALT 53 U/L (13-61)
[2023-11-13 11:41] LABS: BILIRUBIN,TOTAL 0.5 mg/dL (0.2-1); TOT PROT 8.4 g/dl (6.4-8.2)
[2023-11-13 11:42] LABS: ALK PHOS 107 U/L (45-117)
[2023-11-13] MEDS: PEMBROLIZUMAB 200 MG in SODIUM CHLORIDE 100 ML IV ONE (12:47)
[2023-11-13 18:14] VITALS: BP 130/66; PULSE 63; RESP 20; TEMP 98.2
[2023-11-13] MEDS ORDERED: PORTA CATH FLUSH 10 ML IVPUSH PRN (18:14)
[2023-11-14 08:10] LABS: CARCINOEMBRYONIC ANTIGEN 3.3 ng/mL (0.0-4.7)
== END 2023-11-13 13:55 | disposition home or self-care (01) ==
LOC: JONCCHEMO 10:18 → J7W 10:21 → JONCCHEMO 13:55
PROVIDERS: ATTEND Internal Medicine Hematology & Oncology
DX: Z51.11 Encounter for antineoplastic chemotherapy (principal); C34.90 Malignant neoplasm of unspecified part of unspecified bronchus or lung
CPT/HCPCS: 36415; 80048; 80076; 82150; 82378; 82533; 83690; 83735; 84439; 84443; 85025; 86304; 96413; J9271

== ENCOUNTER 2023-12-04 11:25 | Day surgery (SDC) | payer OTHER ==
[~2023-12-04 11:25] MED LIST changes: +GOSERELIN ACETATE 3.6 MG IMPLANT SYRINGE SQ ONE; +LIDOCAINE HCL 1%, 10 MG/ML (20ML VIAL) ID ONE; -PEMBROLIZUMAB 200 MG in SODIUM CHLORIDE 100 ML IV ONE; -SODIUM CHLORIDE 250 ML IV ONE
[2023-12-04] MEDS: SODIUM CHLORIDE 250 ML IV ONE (11:56)
[2023-12-04 12:02] LABS: HEMOGLOBIN 13.5 GM/dL (10.7-15.3); LYMPH % 29.5 % (8-40); MCH 30.2 pg (25.7-33.7); MCHC 34.6 g/dl (32.0-36.0); MEAN CELL VOLUME 87.3 fl (80-96); MEAN PLT VOLUME 7.4 fl (7.5-11.1); MONO % 7.7 % (3.8-10.2); NEUT % 50.8 % (42.8-82.8); PLATELET COUNT 262 10^3/uL (134-434); RBC 4.47 M/mm3 (3.60-5.2); RDW 14.2 % (11.6-15.6); WHITE BLOOD COUNT 6.8 K/mm3 (4.0-10.0)
[2023-12-04 12:20] LABS: POTASSIUM 4.3 mmol/L (3.5-5.1)
[2023-12-04 12:22] LABS: CALCIUM 9.6 mg/dL (8.5-10.1)
[2023-12-04 12:23] LABS: ALBUMIN 4.1 g/dl (3.4-5.0); BLOOD UREA NITROGEN 17.9 mg/dL (7-18); MAGNESIUM 2.1 mg/dL (1.8-2.4)
[2023-12-04 12:25] LABS: BILIRUBIN,DIRECT 0.1 mg/dL (0.0-0.2); CREATININE 1.2 mg/dL (0.55-1.3)
[2023-12-04 12:27] LABS: BILIRUBIN,TOTAL 0.4 mg/dL (0.2-1); TOT PROT 8.2 g/dl (6.4-8.2)
[2023-12-04 13:14] VITALS: RESP 20; TEMP 98.5
[2023-12-04] MEDS: PEMBROLIZUMAB 200 MG in SODIUM CHLORIDE 100 ML IV ONE (13:39)
[2023-12-04] MEDS: PORTA CATH FLUSH 10 ML IVPUSH PRN (14:15)
[2023-12-04 14:57] VITALS: BP 147/76; PULSE 64
[2023-12-05 08:10] LABS: CARCINOEMBRYONIC ANTIGEN 3.3 ng/mL (0.0-4.7)
== END 2023-12-04 14:40 | disposition home or self-care (01) ==
LOC: J7W 11:25 → JONCCHEMO 11:25
PROVIDERS: ATTEND Internal Medicine Hematology & Oncology
DX: Z51.11 Encounter for antineoplastic chemotherapy (principal); C34.90 Malignant neoplasm of unspecified part of unspecified bronchus or lung
CPT/HCPCS: 36415; 80048; 80076; 82150; 82378; 82533; 83690; 83735; 84439; 84443; 85025; 86304; 96413; J9271

== ENCOUNTER 2023-12-25 11:22 | Day surgery (SDC) | payer OTHER ==
[2023-12-25] MEDS: SODIUM CHLORIDE 250 ML IV ONE (11:33)
[2023-12-25 12:17] LABS: BASO % 1.2 % (0-2.0); EOS % 13.7 % (0-4.5); HEMATOCRIT 39.9 % (32.4-45.2); HEMOGLOBIN 13.3 GM/dL (10.7-15.3); LYMPH % 30.7 % (8-40); MCH 29.7 pg (25.7-33.7); MCHC 33.3 g/dl (32.0-36.0); MEAN CELL VOLUME 89.1 fl (80-96); MEAN PLT VOLUME 7.6 fl (7.5-11.1); MONO % 6.9 % (3.8-10.2); NEUT % 47.5 % (42.8-82.8); PLATELET COUNT 307 10^3/uL (134-434); RBC 4.48 M/mm3 (3.60-5.2); RDW 13.6 % (11.6-15.6); WHITE BLOOD COUNT 7.9 K/mm3 (4.0-10.0)
[2023-12-25 12:59] LABS: CHLORIDE 103 mmol/L (98-107); POTASSIUM 4.6 mmol/L (3.5-5.1); SODIUM 136 mmol/L (136-145)
[2023-12-25 13:03] LABS: ALBUMIN 4.1 g/dl (3.4-5.0); AMYLASE 61 U/L (25-115); ANION GAP 3 mmol/L (4-13); BLOOD UREA NITROGEN 21.6 mg/dL (7-18); CALCIUM 9.9 mg/dL (8.5-10.1); CO2 30 mmol/L (21-32); GLUCOSE,RANDOM 113 mg/dL (74-106); MAGNESIUM 2.3 mg/dL (1.8-2.4)
[2023-12-25 13:05] LABS: BILIRUBIN,DIRECT 0.1 mg/dL (0.0-0.2); CREATININE 1.4 mg/dL (0.55-1.3); SGOT/AST 19 U/L (15-37); SGPT/ALT 35 U/L (13-61)
[2023-12-25 13:07] LABS: BILIRUBIN,TOTAL 0.5 mg/dL (0.2-1); TOT PROT 8.2 g/dl (6.4-8.2)
[2023-12-25 13:08] LABS: ALK PHOS 92 U/L (45-117)
[2023-12-25] MEDS: PEMBROLIZUMAB 200 MG in SODIUM CHLORIDE 100 ML IV ONE (13:17)
[2023-12-25] MEDS: PORTA CATH FLUSH 10 ML IVPUSH PRN (13:55)
[2023-12-25 15:50] VITALS: RESP 18; TEMP 98.5
[2023-12-25 16:01] VITALS: BP 125/68; PULSE 69
== END 2023-12-25 14:25 | disposition home or self-care (01) ==
LOC: JONCCHEMO 11:22 → J7W 11:27 → JONCCHEMO 14:25
PROVIDERS: ATTEND Internal Medicine Hematology & Oncology
DX: Z51.11 Encounter for antineoplastic chemotherapy (principal); C34.90 Malignant neoplasm of unspecified part of unspecified bronchus or lung; C78.7 Secondary malignant neoplasm of liver and intrahepatic bile duct
CPT/HCPCS: 36415; 80048; 80076; 82150; 82378; 82533; 83690; 83735; 84439; 84443; 85025; 86304; 96413; J9271

== ENCOUNTER 2024-01-15 11:25 | Day surgery (SDC) | payer OTHER ==
[2024-01-15 11:55] LABS: BASO % 0.8 % (0-2.0); EOS % 12.1 % (0-4.5); HEMOGLOBIN 13.6 GM/dL (10.7-15.3); LYMPH % 27.1 % (8-40); MCH 30.2 pg (25.7-33.7); MCHC 34.1 g/dl (32.0-36.0); MEAN CELL VOLUME 88.5 fl (80-96); MEAN PLT VOLUME 7.4 fl (7.5-11.1); MONO % 5.9 % (3.8-10.2); NEUT % 54.1 % (42.8-82.8); PLATELET COUNT 314 10^3/uL (134-434); RBC 4.52 M/mm3 (3.60-5.2); RDW 13.8 % (11.6-15.6)
[2024-01-15] MEDS: SODIUM CHLORIDE 250 ML IV ONE (11:58)
[2024-01-15 12:20] LABS: CHLORIDE 102 mmol/L (98-107); POTASSIUM 4.7 mmol/L (3.5-5.1); SODIUM 138 mmol/L (136-145)
[2024-01-15 12:22] LABS: CALCIUM 10.1 mg/dL (8.5-10.1)
[2024-01-15 12:23] LABS: AMYLASE 60 U/L (25-115); ANION GAP 6 mmol/L (4-13); BLOOD UREA NITROGEN 30.6 mg/dL (7-18); CO2 29 mmol/L (21-32); GLUCOSE,RANDOM 114 mg/dL (74-106); MAGNESIUM 2.3 mg/dL (1.8-2.4)
[2024-01-15 12:24] LABS: BILIRUBIN,DIRECT 0.1 mg/dL (0.0-0.2)
[2024-01-15 12:26] LABS: CREATININE 1.2 mg/dL (0.55-1.3); SGOT/AST 16 U/L (15-37)
[2024-01-15 12:27] LABS: BILIRUBIN,TOTAL 0.4 mg/dL (0.2-1); SGPT/ALT 27 U/L (13-61); TOT PROT 8.4 g/dl (6.4-8.2)
[2024-01-15 12:28] LABS: ALK PHOS 78 U/L (45-117)
[2024-01-15] MEDS: PEMBROLIZUMAB 200 MG in SODIUM CHLORIDE 100 ML IV ONE (13:35)
[2024-01-15] MEDS: PORTA CATH FLUSH 10 ML IVPUSH PRN (14:15)
[2024-01-15 16:19] VITALS: RESP 20; TEMP 98.4
[2024-01-15 16:25] VITALS: BP 142/84; PULSE 63
[2024-01-17 08:11] LABS: CARCINOEMBRYONIC ANTIGEN 3.4 ng/mL (0.0-4.7)
== END 2024-01-15 14:35 | disposition home or self-care (01) ==
LOC: JONCCHEMO 11:25 → J7W 11:34 → JONCCHEMO 14:35
PROVIDERS: ATTEND Internal Medicine Hematology & Oncology
DX: Z51.11 Encounter for antineoplastic chemotherapy (principal); C34.90 Malignant neoplasm of unspecified part of unspecified bronchus or lung; C78.7 Secondary malignant neoplasm of liver and intrahepatic bile duct
CPT/HCPCS: 36415; 80048; 80076; 82150; 82378; 82533; 83690; 83735; 84439; 84443; 85025; 86304; 96413; J9271

== ENCOUNTER 2024-02-04 11:27 | Day surgery (SDC) | payer OTHER ==
[2024-02-04 12:01] LABS: BASO % 0.9 % (0-2.0); EOS % 12.5 % (0-4.5); HEMATOCRIT 39.6 % (32.4-45.2); HEMOGLOBIN 13.3 GM/dL (10.7-15.3); MCH 29.7 pg (25.7-33.7); MCHC 33.6 g/dl (32.0-36.0); MEAN CELL VOLUME 88.3 fl (80-96); MEAN PLT VOLUME 7.2 fl (7.5-11.1); MONO % 6.5 % (3.8-10.2); NEUT % 52.1 % (42.8-82.8); PLATELET COUNT 299 10^3/uL (134-434); RBC 4.49 M/mm3 (3.60-5.2); RDW 13.9 % (11.6-15.6); WHITE BLOOD COUNT 8.5 K/mm3 (4.0-10.0)
[2024-02-04] MEDS: SODIUM CHLORIDE 250 ML IV ONE (12:17)
[2024-02-04 12:22] VITALS: TEMP 98.4
[2024-02-04 12:36] LABS: POTASSIUM 4.2 mmol/L (3.5-5.1)
[2024-02-04 12:38] LABS: CALCIUM 9.6 mg/dL (8.5-10.1)
[2024-02-04 12:39] LABS: BLOOD UREA NITROGEN 27.8 mg/dL (7-18); MAGNESIUM 2.1 mg/dL (1.8-2.4)
[2024-02-04 12:41] LABS: BILIRUBIN,DIRECT 0.2 mg/dL (0.0-0.2)
[2024-02-04 12:42] LABS: CREATININE 1.2 mg/dL (0.55-1.3)
[2024-02-04 12:43] LABS: BILIRUBIN,TOTAL 0.4 mg/dL (0.2-1)
[2024-02-04] MEDS: PEMBROLIZUMAB 200 MG in SODIUM CHLORIDE 100 ML IV ONE (13:20)
[2024-02-04] MEDS: PORTA CATH FLUSH 10 ML IVPUSH PRN (13:55)
[2024-02-04 14:09] VITALS: BP 140/72; PULSE 70; RESP 20
== END 2024-02-04 14:10 | disposition home or self-care (01) ==
LOC: JONCCHEMO 11:27 → J7W 11:28 → JONCCHEMO 14:10
PROVIDERS: ATTEND Internal Medicine Hematology & Oncology
DX: Z51.11 Encounter for antineoplastic chemotherapy (principal); C34.90 Malignant neoplasm of unspecified part of unspecified bronchus or lung; C78.7 Secondary malignant neoplasm of liver and intrahepatic bile duct
CPT/HCPCS: 36415; 80048; 80076; 82150; 82378; 82533; 83690; 83735; 84439; 84443; 85025; 86304; 96413; J9271

== ENCOUNTER 2024-02-26 10:43 | Day surgery (SDC) | payer OTHER ==
[~2024-02-26 10:43] MED LIST changes: -GOSERELIN ACETATE 3.6 MG IMPLANT SYRINGE SQ ONE; -LIDOCAINE HCL 1%, 10 MG/ML (20ML VIAL) ID ONE; +PEMBROLIZUMAB 200 MG in SODIUM CHLORIDE 100 ML IV ONE; +SODIUM CHLORIDE 250 ML IV ONE
[2024-02-26] MEDS: SODIUM CHLORIDE 250 ML IV ONE (11:17)
[2024-02-26 11:29] LABS: EOS % 10.3 % (0-4.5); HEMATOCRIT 41.2 % (32.4-45.2); LYMPH % 28.9 % (8-40); MCH 30.2 pg (25.7-33.7); MCHC 34.1 g/dl (32.0-36.0); MEAN CELL VOLUME 88.6 fl (80-96); MEAN PLT VOLUME 7.2 fl (7.5-11.1); MONO % 7.2 % (3.8-10.2); NEUT % 52.6 % (42.8-82.8); PLATELET COUNT 322 10^3/uL (134-434); RBC 4.65 M/mm3 (3.60-5.2); RDW 13.7 % (11.6-15.6); WHITE BLOOD COUNT 8.3 K/mm3 (4.0-10.0)
[2024-02-26 11:55] LABS: CHLORIDE 104 mmol/L (98-107); POTASSIUM 4.6 mmol/L (3.5-5.1); SODIUM 139 mmol/L (136-145)
[2024-02-26 11:57] LABS: CALCIUM 10.3 mg/dL (8.5-10.1)
[2024-02-26 11:58] LABS: ALBUMIN 4.3 g/dl (3.4-5.0); BLOOD UREA NITROGEN 19.3 mg/dL (7-18); GLUCOSE,RANDOM 103 mg/dL (74-106); MAGNESIUM 2.3 mg/dL (1.8-2.4)
[2024-02-26 11:59] LABS: AMYLASE 60 U/L (25-115)
[2024-02-26 12:00] LABS: ANION GAP 9 mmol/L (4-13); BILIRUBIN,DIRECT 0.2 mg/dL (0.0-0.2); CO2 26 mmol/L (21-32); SGPT/ALT 24 U/L (13-61)
[2024-02-26 12:01] LABS: CREATININE 1.2 mg/dL (0.55-1.3); SGOT/AST 20 U/L (15-37)
[2024-02-26 12:02] LABS: BILIRUBIN,TOTAL 0.4 mg/dL (0.2-1); TOT PROT 8.6 g/dl (6.4-8.2)
[2024-02-26 12:03] LABS: ALK PHOS 76 U/L (45-117)
[2024-02-26] MEDS: PEMBROLIZUMAB 200 MG in SODIUM CHLORIDE 100 ML IV ONE (12:41)
[2024-02-26] MEDS: PORTA CATH FLUSH 10 ML IVPUSH PRN (13:45)
[2024-02-26 16:27] VITALS: RESP 18; TEMP 98.3
[2024-02-26 16:42] VITALS: BP 151/84; PULSE 72
== END 2024-02-26 13:45 | disposition home or self-care (01) ==
LOC: JONCCHEMO 10:43
PROVIDERS: ATTEND Internal Medicine Hematology & Oncology
PROC: 3E04305 Introduction of Other Antineoplastic into Central Vein, Percutaneous Approach (ICD-10-PCS; principal; 2024-02-26)
PROC: 3E0437Z Introduction of Electrolytic and Water Balance Substance into Central Vein, Percutaneous Approach (ICD-10-PCS; 2024-02-26)
DX: Z51.11 Encounter for antineoplastic chemotherapy (principal); C34.90 Malignant neoplasm of unspecified part of unspecified bronchus or lung; C78.7 Secondary malignant neoplasm of liver and intrahepatic bile duct
CPT/HCPCS: 36415; 80048; 80076; 82150; 82378; 82533; 83690; 83735; 84439; 84443; 85025; 86304; 96413; J9271

== ENCOUNTER 2024-03-18 10:58 | Day surgery (SDC) | payer OTHER ==
[2024-03-18 11:53] LABS: EOS % 12.9 % (0-4.5); HEMATOCRIT 39.5 % (32.4-45.2); HEMOGLOBIN 13.3 GM/dL (10.7-15.3); LYMPH % 32.2 % (8-40); MCH 29.7 pg (25.7-33.7); MCHC 33.6 g/dl (32.0-36.0); MEAN CELL VOLUME 88.4 fl (80-96); MEAN PLT VOLUME 7.5 fl (7.5-11.1); MONO % 7.2 % (3.8-10.2); NEUT % 46.7 % (42.8-82.8); PLATELET COUNT 323 10^3/uL (134-434); RBC 4.47 M/mm3 (3.60-5.2); WHITE BLOOD COUNT 7.9 K/mm3 (4.0-10.0)
[2024-03-18] MEDS: SODIUM CHLORIDE 250 ML IV ONE (12:00)
[2024-03-18 12:08] LABS: CHLORIDE 101 mmol/L (98-107); POTASSIUM 4.6 mmol/L (3.5-5.1); SODIUM 137 mmol/L (136-145)
[2024-03-18 12:10] LABS: ANION GAP 6 mmol/L (4-13); BLOOD UREA NITROGEN 20.2 mg/dL (7-18); CALCIUM 9.9 mg/dL (8.5-10.1); CO2 30 mmol/L (21-32); GLUCOSE,RANDOM 120 mg/dL (74-106); MAGNESIUM 2.3 mg/dL (1.8-2.4)
[2024-03-18 12:11] LABS: AMYLASE 63 U/L (25-115)
[2024-03-18 12:13] LABS: CREATININE 1.1 mg/dL (0.55-1.3)
[2024-03-18] MEDS: PEMBROLIZUMAB 200 MG in SODIUM CHLORIDE 100 ML IV ONE (13:47)
[2024-03-18] MEDS: PORTA CATH FLUSH 10 ML IVPUSH PRN (14:20)
[2024-03-18 16:52] VITALS: RESP 18; TEMP 97.8
[2024-03-18 16:53] VITALS: BP 123/65; PULSE 73
== END 2024-03-18 14:30 | disposition home or self-care (01) ==
LOC: JONCCHEMO 10:58 → J7W 10:59 → JONCCHEMO 14:30
PROVIDERS: ATTEND Internal Medicine Hematology & Oncology
DX: Z51.11 Encounter for antineoplastic chemotherapy (principal); C34.90 Malignant neoplasm of unspecified part of unspecified bronchus or lung; C78.89 Secondary malignant neoplasm of other digestive organs
CPT/HCPCS: 36415; 80048; 82150; 82378; 82533; 83690; 83735; 84439; 84443; 85025; 86304; 96413; J9271

== ENCOUNTER 2024-04-15 10:29 | Day surgery (SDC) | payer OTHER ==
[2024-04-15] MEDS: SODIUM CHLORIDE 250 ML IV ONE (10:54)
[2024-04-15 10:55] LABS: BASO % 1.1 % (0-2.0); EOS % 12.3 % (0-4.5); HEMATOCRIT 38.3 % (32.4-45.2); HEMOGLOBIN 12.8 GM/dL (10.7-15.3); LYMPH % 23.9 % (8-40); MCH 29.4 pg (25.7-33.7); MCHC 33.4 g/dl (32.0-36.0); MEAN PLT VOLUME 7.3 fl (7.5-11.1); MONO % 6.7 % (3.8-10.2); PLATELET COUNT 320 10^3/uL (134-434); RBC 4.35 M/mm3 (3.60-5.2); RDW 13.7 % (11.6-15.6); WHITE BLOOD COUNT 7.9 K/mm3 (4.0-10.0)
[2024-04-15 11:20] VITALS: RESP 18; TEMP 98.1
[2024-04-15 11:32] LABS: POTASSIUM 4.5 mmol/L (3.5-5.1)
[2024-04-15 11:34] LABS: ALBUMIN 3.9 g/dl (3.4-5.0); BLOOD UREA NITROGEN 17.4 mg/dL (7-18); CALCIUM 9.8 mg/dL (8.5-10.1); MAGNESIUM 2.2 mg/dL (1.8-2.4)
[2024-04-15 11:37] LABS: BILIRUBIN,DIRECT 0.1 mg/dL (0.0-0.2)
[2024-04-15 11:38] LABS: CREATININE 1.3 mg/dL (0.55-1.3)
[2024-04-15 11:39] LABS: BILIRUBIN,TOTAL 0.4 mg/dL (0.2-1); TOT PROT 7.9 g/dl (6.4-8.2)
[2024-04-15] MEDS: PEMBROLIZUMAB 200 MG in SODIUM CHLORIDE 100 ML IV ONE (12:42)
[2024-04-15] MEDS: PORTA CATH FLUSH 10 ML IVPUSH PRN (13:15)
[2024-04-15 14:04] VITALS: BP 124/68; PULSE 70
== END 2024-04-15 14:00 | disposition home or self-care (01) ==
LOC: J7W 10:29 → JONCCHEMO 10:29
PROVIDERS: ATTEND Internal Medicine Hematology & Oncology
DX: Z51.11 Encounter for antineoplastic chemotherapy (principal); C34.90 Malignant neoplasm of unspecified part of unspecified bronchus or lung
CPT/HCPCS: 36415; 80048; 80076; 82150; 82378; 82533; 83690; 83735; 84439; 84443; 85025; 86304; 96413; J9271

== ENCOUNTER 2024-05-13 11:14 | Day surgery (SDC) | payer OTHER ==
[2024-05-13 11:19] LABS: BASO % 0.9 % (0-2.0); EOS % 13.6 % (0-4.5); HEMATOCRIT 40.4 % (32.4-45.2); HEMOGLOBIN 13.2 GM/dL (10.7-15.3); LYMPH % 31.8 % (8-40); MCH 29.1 pg (25.7-33.7); MCHC 32.8 g/dl (32.0-36.0); MEAN CELL VOLUME 88.7 fl (80-96); MEAN PLT VOLUME 7.5 fl (7.5-11.1); MONO % 15.9 % (3.8-10.2); NEUT % 37.8 % (42.8-82.8); PLATELET COUNT 280 10^3/uL (134-434); RBC 4.55 M/mm3 (3.60-5.2); RDW 13.4 % (11.6-15.6); WHITE BLOOD COUNT 5.6 K/mm3 (4.0-10.0)
[2024-05-13 12:03] LABS: CHLORIDE 104 mmol/L (98-107); POTASSIUM 4.2 mmol/L (3.5-5.1); SODIUM 136 mmol/L (136-145)
[2024-05-13 12:07] LABS: ALBUMIN 3.9 g/dl (3.4-5.0); ANION GAP 9 mmol/L (4-13); CALCIUM 9.7 mg/dL (8.5-10.1); CO2 23 mmol/L (21-32); MAGNESIUM 2.1 mg/dL (1.8-2.4)
[2024-05-13 12:08] LABS: GLUCOSE,RANDOM 128 mg/dL (74-106)
[2024-05-13 12:10] LABS: BILIRUBIN,DIRECT 0.1 mg/dL (0.0-0.2); SGPT/ALT 28 U/L (13-61)
[2024-05-13 12:11] LABS: CREATININE 1.3 mg/dL (0.55-1.3); SGOT/AST 20 U/L (15-37)
[2024-05-13 12:12] LABS: BILIRUBIN,TOTAL 0.4 mg/dL (0.2-1)
[2024-05-13 12:13] LABS: ALK PHOS 70 U/L (45-117)
[2024-05-13] MEDS: SODIUM CHLORIDE 250 ML IV ONE (12:30)
[2024-05-13] MEDS: PEMBROLIZUMAB 200 MG in SODIUM CHLORIDE 100 ML IV ONE (13:13)
[2024-05-13] MEDS: PORTA CATH FLUSH 10 ML IVPUSH PRN (14:05)
[2024-05-13 16:41] VITALS: BP 148/58; PULSE 78; RESP 20; TEMP 98.3
== END 2024-05-13 14:10 | disposition home or self-care (01) ==
LOC: JONCCHEMO 11:14 → J7W 11:22 → JONCCHEMO 14:10
PROVIDERS: ATTEND Internal Medicine Hematology & Oncology
DX: Z51.11 Encounter for antineoplastic chemotherapy (principal); C80.1 Malignant (primary) neoplasm, unspecified; C78.7 Secondary malignant neoplasm of liver and intrahepatic bile duct
CPT/HCPCS: 36415; 80048; 80076; 82150; 82378; 82533; 83690; 83735; 84439; 84443; 85025; 86304; 96413; J9271

== ENCOUNTER 2024-06-17 10:41 | Day surgery (SDC) | payer OTHER ==
[2024-06-17] MEDS: SODIUM CHLORIDE 250 ML IV ONE (11:18)
[2024-06-17 11:19] LABS: BASO % 0.6 % (0-2.0); EOS % 10.8 % (0-4.5); HEMATOCRIT 38.6 % (32.4-45.2); HEMOGLOBIN 13.2 GM/dL (10.7-15.3); LYMPH % 28.4 % (8-40); MCH 29.6 pg (25.7-33.7); MCHC 34.1 g/dl (32.0-36.0); MEAN CELL VOLUME 86.8 fl (80-96); MEAN PLT VOLUME 7.4 fl (7.5-11.1); MONO % 7.1 % (3.8-10.2); NEUT % 53.1 % (42.8-82.8); PLATELET COUNT 313 10^3/uL (134-434); RBC 4.45 M/mm3 (3.60-5.2); RDW 13.6 % (11.6-15.6); WHITE BLOOD COUNT 7.7 K/mm3 (4.0-10.0)
[2024-06-17 11:52] LABS: CHLORIDE 106 mmol/L (98-107); SODIUM 138 mmol/L (136-145)
[2024-06-17 11:55] LABS: ANION GAP 5 mmol/L (4-13); BLOOD UREA NITROGEN 18.7 mg/dL (7-18); CO2 26 mmol/L (21-32); GLUCOSE,RANDOM 100 mg/dL (74-106)
[2024-06-17 11:56] LABS: CALCIUM 9.5 mg/dL (8.5-10.1); MAGNESIUM 2.1 mg/dL (1.8-2.4)
[2024-06-17 11:57] LABS: BILIRUBIN,DIRECT 0.1 mg/dL (0.0-0.2)
[2024-06-17 11:58] LABS: CREATININE 1.1 mg/dL (0.55-1.3); SGOT/AST 13 U/L (15-37); SGPT/ALT 26 U/L (13-61)
[2024-06-17 11:59] LABS: BILIRUBIN,TOTAL 0.4 mg/dL (0.2-1)
[2024-06-17 12:01] LABS: ALK PHOS 77 U/L (45-117)
[2024-06-17] MEDS: PEMBROLIZUMAB 200 MG in SODIUM CHLORIDE 100 ML IV ONE (13:02)
[2024-06-17] MEDS: PORTA CATH FLUSH 10 ML IVPUSH PRN (13:45)
[2024-06-17 16:34] VITALS: TEMP 98
[2024-06-17 16:40] VITALS: BP 136/68; PULSE 64; RESP 20
== END 2024-06-17 14:00 | disposition home or self-care (01) ==
LOC: JONCCHEMO 10:41 → J7W 10:42 → JONCCHEMO 14:00
PROVIDERS: ATTEND Internal Medicine Hematology & Oncology
DX: Z51.11 Encounter for antineoplastic chemotherapy (principal); C34.90 Malignant neoplasm of unspecified part of unspecified bronchus or lung; C78.7 Secondary malignant neoplasm of liver and intrahepatic bile duct
CPT/HCPCS: 36415; 80048; 80076; 82150; 82378; 82533; 83690; 83735; 84439; 84443; 85025; 86304; 96413; J9271

== ENCOUNTER 2024-07-29 11:38 | Day surgery (SDC) | payer OTHER ==
[2024-07-29 12:26] LABS: BASO % 1.1 % (0-2.0); EOS % 10.3 % (0-4.5); HEMATOCRIT 40.9 % (32.4-45.2); HEMOGLOBIN 13.5 GM/dL (10.7-15.3); LYMPH % 33.1 % (8-40); MCH 29.2 pg (25.7-33.7); MEAN CELL VOLUME 88.5 fl (80-96); MEAN PLT VOLUME 7.6 fl (7.5-11.1); MONO % 5.5 % (3.8-10.2); PLATELET COUNT 317 10^3/uL (134-434); RBC 4.62 M/mm3 (3.60-5.2); RDW 14.5 % (11.6-15.6); WHITE BLOOD COUNT 7.7 K/mm3 (4.0-10.0)
[2024-07-29 13:06] LABS: CHLORIDE 104 mmol/L (98-107); POTASSIUM 4.4 mmol/L (3.5-5.1); SODIUM 137 mmol/L (136-145)
[2024-07-29 13:12] LABS: ALBUMIN 4.2 g/dl (3.4-5.0); ANION GAP 4 mmol/L (4-13); CALCIUM 9.6 mg/dL (8.5-10.1); CO2 28 mmol/L (21-32)
[2024-07-29 13:13] LABS: AMYLASE 55 U/L (25-115); GLUCOSE,RANDOM 113 mg/dL (74-106); MAGNESIUM 2.1 mg/dL (1.8-2.4)
[2024-07-29 13:14] LABS: BILIRUBIN,DIRECT 0.1 mg/dL (0.0-0.2)
[2024-07-29 13:15] LABS: SGOT/AST 21 U/L (15-37); SGPT/ALT 27 U/L (13-61)
[2024-07-29 13:16] LABS: BILIRUBIN,TOTAL 0.4 mg/dL (0.2-1); TOT PROT 8.8 g/dl (6.4-8.2)
[2024-07-29 13:18] LABS: ALK PHOS 89 U/L (45-117)
[2024-07-29] MEDS: SODIUM CHLORIDE 250 ML IV ONE (13:50)
[2024-07-29] MEDS: PEMBROLIZUMAB 200 MG in SODIUM CHLORIDE 100 ML IV ONE (14:24)
[2024-07-29 17:52] VITALS: BP 127/70; PULSE 68; RESP 18; TEMP 98.3
[2024-07-29] MEDS ORDERED: PORTA CATH FLUSH 10 ML IVPUSH PRN (17:52)
== END 2024-07-29 13:20 | disposition home or self-care (01) ==
LOC: JONCCHEMO 11:38 → J7W 13:57
PROVIDERS: ATTEND Internal Medicine Hematology & Oncology
DX: Z51.11 Encounter for antineoplastic chemotherapy (principal); C34.90 Malignant neoplasm of unspecified part of unspecified bronchus or lung; C78.7 Secondary malignant neoplasm of liver and intrahepatic bile duct
CPT/HCPCS: 36415; 80048; 80076; 82150; 82378; 82533; 83690; 83735; 84439; 84443; 85025; 86304; 96413; J9271

== ENCOUNTER 2024-08-19 11:39 | Day surgery (SDC) | payer OTHER ==
[2024-08-19] MEDS: SODIUM CHLORIDE 250 ML IV ONE (12:45)
[2024-08-19 13:12] LABS: BASO % 0.6 % (0-2.0); EOS % 12.1 % (0-4.5); HEMATOCRIT 40.5 % (32.4-45.2); HEMOGLOBIN 13.6 GM/dL (10.7-15.3); LYMPH % 28.8 % (8-40); MCH 29.3 pg (25.7-33.7); MCHC 33.5 g/dl (32.0-36.0); MEAN CELL VOLUME 87.3 fl (80-96); MEAN PLT VOLUME 7.6 fl (7.5-11.1); NEUT % 48.5 % (42.8-82.8); PLATELET COUNT 313 10^3/uL (134-434); RBC 4.64 M/mm3 (3.60-5.2); RDW 14.3 % (11.6-15.6); WHITE BLOOD COUNT 7.6 K/mm3 (4.0-10.0)
[2024-08-19 14:04] LABS: POTASSIUM 4.4 mmol/L (3.5-5.1)
[2024-08-19 14:07] LABS: BLOOD UREA NITROGEN 16.5 mg/dL (7-18); CALCIUM 9.6 mg/dL (8.5-10.1); MAGNESIUM 2.2 mg/dL (1.8-2.4)
[2024-08-19 14:11] LABS: BILIRUBIN,DIRECT 0.2 mg/dL (0.0-0.2); CREATININE 1.1 mg/dL (0.55-1.3)
[2024-08-19 14:12] LABS: BILIRUBIN,TOTAL 0.5 mg/dL (0.2-1); TOT PROT 8.1 g/dl (6.4-8.2)
[2024-08-19] MEDS: PEMBROLIZUMAB 200 MG in SODIUM CHLORIDE 100 ML IV ONE (14:30)
[2024-08-19] MEDS: PORTA CATH FLUSH 10 ML IVPUSH PRN (15:10)
[2024-08-19 15:31] VITALS: RESP 18; TEMP 98.3
[2024-08-19 15:47] VITALS: BP 152/75; PULSE 71
== END 2024-08-19 15:30 | disposition home or self-care (01) ==
LOC: JONCCHEMO 11:39 → J7W 11:40 → JONCCHEMO 15:30
PROVIDERS: ATTEND Internal Medicine Hematology & Oncology
DX: Z51.11 Encounter for antineoplastic chemotherapy (principal); C34.90 Malignant neoplasm of unspecified part of unspecified bronchus or lung; C78.7 Secondary malignant neoplasm of liver and intrahepatic bile duct
CPT/HCPCS: 36415; 80048; 80076; 82150; 82378; 82533; 83690; 83735; 84439; 84443; 85025; 86304; 96413; J9271

== ENCOUNTER 2024-09-09 10:36 | Day surgery (SDC) | payer OTHER ==
[2024-09-09] MEDS: SODIUM CHLORIDE 250 ML IV ONE (10:55)
[2024-09-09 11:24] LABS: ABSOLUTE IMMATURE GRANULOCYTES 0.03 x10^3/uL (0.0-0.031); EOSINOPHIL % 12.6 % (0.7-5.8); EOSINOPHILS # 0.95 x10^3/uL (0.04-0.36); HEMATOCRIT 39.9 % (34.1-44.9); HEMOGLOBIN 12.9 g/dL (11.2-15.7); MCHC 32.3 g/dl (32.2-35.5); MEAN CELL VOLUME 88.3 fl (79.4-94.8); MEAN PLT VOLUME 9.4 fl (9.4-12.3); MONOCYTE # 0.47 x10^3/uL (0.24-0.86); MONOCYTE % 6.3 % (4.7-12.5); PLATELET COUNT 320 x10^3/uL (182-369); RDW 13.5 % (12.4-16.4)
[2024-09-09 11:42] LABS: CHLORIDE 104 mmol/L (98-107); POTASSIUM 4.2 mmol/L (3.5-5.1); SODIUM 138 mmol/L (136-145)
[2024-09-09 11:44] LABS: ANION GAP 8 mmol/L (4-13); BLOOD UREA NITROGEN 14.6 mg/dL (7-18); CALCIUM 9.5 mg/dL (8.5-10.1); CO2 26 mmol/L (21-32); GLUCOSE,RANDOM 169 mg/dL (74-106); MAGNESIUM 2.1 mg/dL (1.8-2.4)
[2024-09-09 11:45] LABS: AMYLASE 53 U/L (25-115)
[2024-09-09 11:46] LABS: ALBUMIN 4.1 g/dl (3.4-5.0)
[2024-09-09 11:47] LABS: CREATININE 1.1 mg/dL (0.55-1.3)
[2024-09-09 11:49] LABS: BILIRUBIN,DIRECT 0.1 mg/dL (0.0-0.2)
[2024-09-09 11:51] LABS: BILIRUBIN,TOTAL 0.5 mg/dL (0.2-1); TOT PROT 8.1 g/dl (6.4-8.2)
[2024-09-09] MEDS: PEMBROLIZUMAB 200 MG in SODIUM CHLORIDE 100 ML IV ONE (12:34)
[2024-09-09] MEDS: PORTA CATH FLUSH 10 ML IVPUSH PRN (13:15)
[2024-09-09 16:10] VITALS: TEMP 98.5
[2024-09-09 16:30] VITALS: BP 137/68; PULSE 67; RESP 18
== END 2024-09-09 13:15 | disposition home or self-care (01) ==
LOC: JONCCHEMO 10:36 → J7W 10:38 → JONCCHEMO 13:15
PROVIDERS: ATTEND Internal Medicine Hematology & Oncology
DX: Z51.11 Encounter for antineoplastic chemotherapy (principal); C34.90 Malignant neoplasm of unspecified part of unspecified bronchus or lung
CPT/HCPCS: 36415; 80048; 80076; 82150; 82378; 82533; 83690; 83735; 84439; 84443; 85025; 86304; 96413; J9271

== ENCOUNTER 2024-09-30 11:24 | Day surgery (SDC) | payer OTHER ==
[2024-09-30] MEDS: SODIUM CHLORIDE 250 ML IV ONE (11:53)
[2024-09-30 12:10] LABS: ABSOLUTE IMMATURE GRANULOCYTES 0.02 x10^3/uL (0.0-0.031); BASOPHILS # 0.07 x10^3/uL (0.01-0.08); EOSINOPHILS # 0.87 x10^3/uL (0.04-0.36); HEMATOCRIT 42.3 % (34.1-44.9); MCHC 33.1 g/dl (32.2-35.5); MEAN CELL VOLUME 88.3 fl (79.4-94.8); MEAN PLT VOLUME 9.7 fl (9.4-12.3); MONOCYTE # 0.48 x10^3/uL (0.24-0.86); MONOCYTE % 6.6 % (4.7-12.5); PLATELET COUNT 318 x10^3/uL (182-369); RDW 13.3 % (12.4-16.4)
[2024-09-30 12:28] LABS: CHLORIDE 103 mmol/L (98-107); POTASSIUM 4.5 mmol/L (3.5-5.1); SODIUM 140 mmol/L (136-145)
[2024-09-30 12:30] LABS: CALCIUM 9.9 mg/dL (8.5-10.1)
[2024-09-30 12:31] LABS: ALBUMIN 4.2 g/dl (3.4-5.0); ANION GAP 9 mmol/L (4-13); CO2 28 mmol/L (21-32); GLUCOSE,RANDOM 117 mg/dL (74-106); MAGNESIUM 2.2 mg/dL (1.8-2.4)
[2024-09-30 12:33] LABS: BILIRUBIN,DIRECT 0.2 mg/dL (0.0-0.2)
[2024-09-30 12:34] LABS: SGOT/AST 24 U/L (15-37); SGPT/ALT 33 U/L (13-61)
[2024-09-30 12:35] LABS: BILIRUBIN,TOTAL 0.4 mg/dL (0.2-1); CREATININE 1.1 mg/dL (0.55-1.3); TOT PROT 8.5 g/dl (6.4-8.2)
[2024-09-30 12:39] LABS: ALK PHOS 87 U/L (45-117)
[2024-09-30 12:58] VITALS: PULSE 65; RESP 20; TEMP 98.1
[2024-09-30] MEDS: PEMBROLIZUMAB 200 MG in SODIUM CHLORIDE 100 ML IV ONE (13:10)
[2024-09-30] MEDS: PORTA CATH FLUSH 10 ML IVPUSH PRN (13:40)
[2024-09-30 16:40] VITALS: BP 123/69
== END 2024-09-30 13:45 | disposition home or self-care (01) ==
LOC: J7W 11:24 → JONCCHEMO 11:24
PROVIDERS: ATTEND Internal Medicine Hematology & Oncology
DX: Z51.11 Encounter for antineoplastic chemotherapy (principal); C34.90 Malignant neoplasm of unspecified part of unspecified bronchus or lung
CPT/HCPCS: 36415; 80048; 80076; 82150; 82378; 82533; 83690; 83735; 84439; 84443; 85025; 86304; 96413; J9271

== ENCOUNTER 2025-01-13 11:39 | Day surgery (SDC) | payer OTHER ==
[2025-01-13 12:06] LABS: ABSOLUTE IMMATURE GRANULOCYTES 0.02 x10^3/uL (0.0-0.031); BASOPHILS # 0.07 x10^3/uL (0.01-0.08); EOSINOPHIL % 9.7 % (0.7-5.8); EOSINOPHILS # 0.73 x10^3/uL (0.04-0.36); MCHC 33.2 g/dl (32.2-35.5); MEAN CELL VOLUME 86.5 fl (79.4-94.8); MEAN PLT VOLUME 9.3 fl (9.4-12.3); MONOCYTE # 0.51 x10^3/uL (0.24-0.86); MONOCYTE % 6.7 % (4.7-12.5); RDW 13.2 % (12.4-16.4)
[2025-01-13] MEDS: SODIUM CHLORIDE 250 ML IV ONE (12:08)
[2025-01-13 12:38] LABS: CO2 28 mmol/L (21-32); GLUCOSE,RANDOM 144 mg/dL (74-106)
[2025-01-13 12:41] LABS: CREATININE 1.1 mg/dL (0.55-1.3); SGOT/AST 21 U/L (15-37); SGPT/ALT 29 U/L (13-61)
[2025-01-13 12:42] VITALS: RESP 18; TEMP 98.4
[2025-01-13 12:42] LABS: TOT PROT 7.8 g/dl (6.4-8.2)
[2025-01-13 12:44] LABS: ALK PHOS 70 U/L (45-117)
[2025-01-13] MEDS: PEMBROLIZUMAB 200 MG in SODIUM CHLORIDE 100 ML IV ONE (12:58)
[2025-01-13] MEDS: PORTA CATH FLUSH 10 ML IVPUSH PRN (13:35)
[2025-01-13 14:10] VITALS: BP 140/80; PULSE 67
== END 2025-01-13 14:00 | disposition home or self-care (01) ==
LOC: JONCCHEMO 11:39 → J7W 12:08 → JONCCHEMO 14:00
PROVIDERS: ATTEND Internal Medicine Hematology & Oncology
DX: Z51.11 Encounter for antineoplastic chemotherapy (principal); C34.90 Malignant neoplasm of unspecified part of unspecified bronchus or lung
CPT/HCPCS: 36415; 80048; 80076; 82150; 82378; 82533; 83690; 83735; 84439; 84443; 85025; 86304; 96413; J9271

== ENCOUNTER 2025-02-03 11:55 | Day surgery (SDC) | payer OTHER ==
[2025-02-03 12:24] LABS: ABSOLUTE IMMATURE GRANULOCYTES 0.01 x10^3/uL (0.0-0.031); BASOPHILS # 0.11 x10^3/uL (0.01-0.08); EOSINOPHIL % 10.9 % (0.7-5.8); EOSINOPHILS # 0.82 x10^3/uL (0.04-0.36); MCHC 32.3 g/dl (32.2-35.5); MEAN CELL VOLUME 89.0 fl (79.4-94.8); MEAN PLT VOLUME 9.7 fl (9.4-12.3); MONOCYTE # 0.46 x10^3/uL (0.24-0.86); MONOCYTE % 6.1 % (4.7-12.5); RDW 13.2 % (12.4-16.4)
[2025-02-03 12:51] LABS: GLUCOSE,RANDOM 127 mg/dL (74-106); TOT PROT 8.3 g/dl (6.4-8.2)
[2025-02-03 12:52] LABS: CO2 28 mmol/L (21-32)
[2025-02-03 12:54] LABS: ALK PHOS 74 U/L (40-150)
[2025-02-03 12:57] LABS: CREATININE 1.06 mg/dL (0.55-1.3); SGOT/AST 23 U/L (5-34); SGPT/ALT 22 U/L (0-55)
[2025-02-03] MEDS: SODIUM CHLORIDE 250 ML IV ONE (13:05)
[2025-02-03] MEDS ORDERED: PORTA CATH FLUSH 10 ML IVPUSH PRN (13:07)
[2025-02-03] MEDS: PEMBROLIZUMAB 200 MG in SODIUM CHLORIDE 100 ML IV ONE (13:54)
[2025-02-03] MEDS: PORTA CATH FLUSH 10 ML IVPUSH ONE (14:30)
[2025-02-03 15:49] VITALS: BP 146/69; PULSE 60; RESP 20; TEMP 98.5
== END 2025-02-03 14:40 | disposition home or self-care (01) ==
LOC: JONCCHEMO 11:55 → J7W 12:38 → JONCCHEMO 14:40
PROVIDERS: ATTEND Internal Medicine Hematology & Oncology
DX: Z51.11 Encounter for antineoplastic chemotherapy (principal); C34.90 Malignant neoplasm of unspecified part of unspecified bronchus or lung; C78.7 Secondary malignant neoplasm of liver and intrahepatic bile duct
CPT/HCPCS: 36415; 80048; 80076; 82150; 82378; 82533; 83690; 83735; 84439; 84443; 85025; 86304; J9271

== ENCOUNTER 2025-02-24 11:41 | Day surgery (SDC) | payer OTHER ==
[2025-02-24 11:41] LABS: ABSOLUTE IMMATURE GRANULOCYTES 0.01 x10^3/uL (0.0-0.031); BASOPHILS # 0.07 x10^3/uL (0.01-0.08); EOSINOPHIL % 12.9 % (0.7-5.8); EOSINOPHILS # 0.91 x10^3/uL (0.04-0.36); MCHC 32.5 g/dl (32.2-35.5); MEAN CELL VOLUME 88.7 fl (79.4-94.8); MEAN PLT VOLUME 9.6 fl (9.4-12.3); MONOCYTE # 0.59 x10^3/uL (0.24-0.86); MONOCYTE % 8.3 % (4.7-12.5); RDW 13.2 % (12.4-16.4)
[2025-02-24 11:59] LABS: GLUCOSE,RANDOM 124 mg/dL (74-106)
[2025-02-24 12:00] LABS: CO2 25 mmol/L (21-32); TOT PROT 8.4 g/dl (6.4-8.2)
[2025-02-24] MEDS: SODIUM CHLORIDE 250 ML IV ONE (12:00)
[2025-02-24 12:02] LABS: ALK PHOS 78 U/L (40-150)
[2025-02-24 12:05] LABS: CREATININE 0.99 mg/dL (0.55-1.3); SGOT/AST 25 U/L (5-34); SGPT/ALT 31 U/L (0-55)
[2025-02-24] MEDS: PEMBROLIZUMAB 200 MG in SODIUM CHLORIDE 100 ML IV ONE (12:59)
[2025-02-24] MEDS: PORTA CATH FLUSH 10 ML IVPUSH PRN (13:40)
[2025-02-24 16:04] VITALS: RESP 20; TEMP 98.4
[2025-02-24 16:08] VITALS: BP 152/65; PULSE 78
== END 2025-02-24 13:35 | disposition home or self-care (01) ==
LOC: JONCCHEMO 11:41 → J7W 11:44 → JONCCHEMO 13:35
PROVIDERS: ATTEND Internal Medicine Hematology & Oncology
DX: Z51.11 Encounter for antineoplastic chemotherapy (principal)
CPT/HCPCS: 36415; 80048; 80076; 82150; 82378; 82533; 83690; 83735; 84439; 84443; 85025; 86304; 96413; J9271